=== PATIENT | female | born 1950 | race Caucasian/White ===

== ENCOUNTER 2023-04-16 15:56 | Outpatient (OUT) | payer MEDICARE, OTHER, SELFPAY ==
[2023-04-16 17:04] LABS: Bilirubin Urine NEGATIVE (NEGATIVE); Blood Urine TRACE-I (NEGATIVE); Clarity Urine CLEAR (CLEAR); Color Urine LT. YELLOW (YELLOW); Glucose Urine UA NEGATIVE (NEGATIVE); Ketones Urine NEGATIVE (NEGATIVE); Leukocyte Esterase Urine MODERATE (NEGATIVE); Nitrite Urine NEGATIVE (NEGATIVE); Protein Urine NEGATIVE (NEG/TRACE); Urobilinogen Urine 0.2 EU/dL (0.2-1.0)
[2023-04-16 17:11] LABS: Bacteria Urine TRACE #/HPF (NONE SEEN); Mucus Urine NONE SEEN (NONE SEEN); RBC Urine 0-2 #/HPF (0-2); Squamous Epithelial Cell Urine NONE SEEN #/LPF (NONE/RARE); WBC Urine 20-50 #/HPF (NONE SEEN)
[2023-04-16 17:12] LABS: Cast Seen? NONE SEEN #/LPF (NONE SEEN); Crystals Seen? None Seen #/HPF (None Seen); Urine Culture Indicated ALREADY ORDERED
== END 2023-04-16 15:57 ==
LOC: LAB 15:59
PROVIDERS: PCP Family Medicine
DX: R39.15 Urgency of urination (principal)
CPT/HCPCS: 81001; 87086; 87150; 87186

== ENCOUNTER 2023-05-25 12:55 | Outpatient (OUT) | payer MEDICARE, OTHER, SELFPAY ==
--- NOTE | 2023-05-25 12:58 | XR_ITS ---
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 FINDINGS: SPINE ANALYSIS: Average bone mineral density is 0.922 g/cm2. T-score (standard deviation relative to young adult mean): -2.1 . -1.2% change since prior study. HIP ANALYSIS: Lowest bone mineral density is within the femoral trochanter, 0.694 g/cm2. T-score (standard deviation relative to young adult mean): -1.4 . +4.4% change since prior study. XR/XR DEXA axial skeleton IMPRESSION: World [employer] Classification: Osteopenia - Moderate Fracture Risk Electronically authenticated by: JUAN M ELAM Date: 05/25/2023 13:45
== END 2023-05-25 12:56 | disposition home or self-care (01) ==
LOC: RAD 12:55
PROVIDERS: PCP Family Medicine; Visit Provider Family Medicine
DX: M85.851 Other specified disorders of bone density and structure, right thigh (principal); M85.88 Other specified disorders of bone density and structure, other site; Z90.710 Acquired absence of both cervix and uterus; E55.9 Vitamin D deficiency, unspecified; E89.41 Symptomatic postprocedural ovarian failure
CPT/HCPCS: 77080

== ENCOUNTER 2023-07-30 12:55 | Outpatient (OUT) | payer MEDICARE, OTHER, SELFPAY ==
[2023-07-30 13:28] LABS: Bilirubin Urine NEGATIVE (NEGATIVE); Blood Urine TRACE-I (NEGATIVE); Glucose Urine UA NEGATIVE (NEGATIVE); Ketones Urine TRACE mg/dL (NEGATIVE); Leukocyte Esterase Urine MODERATE (NEGATIVE); Nitrite Urine NEGATIVE (NEGATIVE); Protein Urine 30 mg/dL (NEG/TRACE); Urobilinogen Urine 0.2 EU/dL (0.2-1.0); pH Urine 6.5 (5.0-9.0)
[2023-07-30 13:29] LABS: Clarity Urine SLIGHTLY CLOUDY (CLEAR); Color Urine DK YELLOW (YELLOW)
[2023-07-30 13:34] LABS: Bacteria Urine TRACE #/HPF (NONE SEEN); Cast Seen? NONE SEEN #/LPF (NONE SEEN); Crystals Seen? None Seen #/HPF (None Seen); Mucus Urine NONE SEEN (NONE SEEN); RBC Urine 0-2 #/HPF (0-2); Squamous Epithelial Cell Urine RARE #/LPF (NONE/RARE); Urine Culture Indicated ALREADY ORDERED; WBC Urine 50-75 #/HPF (NONE SEEN)
== END 2023-07-30 12:56 | disposition home or self-care (01) ==
LOC: LAB 13:02
PROVIDERS: PCP Family Medicine
DX: R30.0 Dysuria (principal)
CPT/HCPCS: 81001; 87086

== ENCOUNTER 2023-11-21 16:01 | Outpatient (OUT) | payer MEDICARE, OTHER, SELFPAY | END 2023-11-21 16:02 | disposition home or self-care (01) | LOC: LAB 16:05 | PROVIDERS: PCP Family Medicine | DX: R30.0 Dysuria (principal) | CPT/HCPCS: 87086; 87150; 87186 ==

== ENCOUNTER 2024-03-20 08:20 | Outpatient (OUT) | payer MEDICARE, OTHER, SELFPAY ==
--- OUTSIDE RECORDS SUMMARY | 2024-03-20 08:33 | XMS_ITS | CCD ---
Author Organization [facility] Care Team Providers Care Parking Lot Attendant Name Role Phone PIPER CARLOS Admitting Unavailable PIPER CARLOS Attending Unavailable MARIALUISA, DR WILVER Ga Consulting Unavailable HEMEYER, DR PAGE Primary Care Unavailable PIPER CARLOS Consulting Unavailable KARLA MERLOS Consulting Unavailable VICENTEYER, DR PAGE Admitting Unavailable HEMEYER, DR PAGE Attending Unavailable HEMEYER, DR PAGE Consulting Unavailable HEMEYER, DR PAGE Primary Care Unavailable ZIEBER, DR WILVER Ga Consulting Unavailable HEMEYER, DR PAGE Admitting Unavailable HEMEYER, DR PAGE Attending Unavailable HEMEYER, DR PAGE Consulting Unavailable HEMEYER, DR PAGE Primary Care Unavailable SUSAN MARTINEZ Admitting Unavailable SUSAN MARTINEZ Attending Unavailable SUSAN MARTINEZ Consulting Unavailable JUSTUS, DR PAGE Primary Care Unavailable FALMARLENY, STEVE Consulting Unavailable Greg Pelayo Attending Unavailable Greg Pelayo Admitting Unavailable Fredrick Jerome Primary Care Unavailable FREDRICK JEROME Attending Unavailable FREDRICK JEROME Attending Unavailable FREDRICK JEROME Attending Unavailable FREDRICK JEROME Referring Unavailable FREDRICK JEROME Attending Unavailable Allergies Allergy Classification Reported Allergen(s) Allergy Type Date of Onset Reaction(s) Facility (1 source) Sulfonamides (Antibiotic) Drug allergy (disorder) [facility] Repository Problems Active Problems Problem Classification Problem Date Documented Da te Episodic/Chronic Conditions associated with dizziness or vertigo (4 sources) Dizziness and giddiness; Translations: [DIZZINESS AND GIDDINESS] Onset: 08-27-2022 Episodic Menopausal disorders (1 source) Menopausal and female climacteric states; Translations: [MENOPAUSAL FE CLIMACTERIC STATES] Onset: 07-14-2022 Chronic Other aftercare (1 source) 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; Translations: [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] Onset: 08-29-2022 Episodic Other aftercare (1 source) Other assisted (current) drug therapy; Translations: [[facility] CURRENT DRUG THERAPY] Onset: 08-29-2022 Episodic Other bone disease and musculoskeletal deformities (1 source) Other specified disorders of bone density and structure, other site; Translations: [[facility] D/O BONE DEN STRUCT [facility] SITE] Onset: 07-14-2022 Episodic Other circulatory disease (1 source) Elevated blood-pressure reading, without diagnosis of hypertension; Translations: [ELEVATED BP READING W/O DX HTN] Onset: 08-29-2022 Episodic Other screening for suspected conditions (not mental disorders or infectious disease) (5 sources) Encounter for screening mammogram for malignant neoplasm of breast; Translations: [Encounter for screening for osteoporosis] Onset: 07-07-2022 Episodic Unclassified (3 sources) CONTACT W/AND (SUSP) EXPOS COVID-19; Translations: [CONTACT W/AND (SUSP) EXPOS COVID-19] Onset: 11-02-2021 Unclassified (1 source) COUGH, UNSPECIFIED; Translations: [COUGH, UNSPECIFIED] Onset: 11-02-2021 Unclassified (1 source) OTHER SPECIFIED COUGH; Translations: [OTHER SPECIFIED COUGH] Onset: 11-02-2021 Unclassified (1 source) Encounter for screening for malignant neoplasm of colon; Translations: [Encounter for screening for malignant neoplasm of colon] Onset: 10-24-2023 Past or Other Problems Problem Classification Problem Date Documented Da te Episodic/Chronic E Codes: Fall (1 source) Fall on same level from slipping, tripping and stumbling with subsequent striking against other object, initial encounter; Translations: [FALL SAME LVL SLIP STRK [facility] OBJ INT] Onset: 04-17-2022 Episodic Superficial injury; contusion (5 sources) Contusion of unspecified part of head, initial encounter; Translations: [Abrasion, left knee, initial encounter] Onset: 04-11-2022 Episodic Unclassified (1 source) CONTACT W/AND (SUSP) EXPOS COVID-19; Translations: [CONTACT W/AND (SUSP) EXPOS COVID-19] Onset: 10-27-2021 Results Test Name Value Interpretation Reference Range Facil ity XR KNEE 3 VIEWS LEFTon 10-04 XR KNEE 3 VIEWS LEFT FINDINGS: Narrowing medial compartment, and patellofemoral compartment. Small anterior osteophytes. Inferior patella. No fracture, dislocation, bone lesion, effusion. IMPRESSION: Impression: Mild to moderate degenerative change, left knee. ELECTRONICALLY SIGNED BY: Kenroy Ramirez MD Normal Not Available XR KNEE 3 VIEWS RIGHTon XR KNEE 3 VIEWS RIGHT FINDINGS: No fracture, dislocation, bone lesion, effusion. Narrowing, medial and lateral compartments. Small osteophytes superior and inferior aspect anterior patella. IMPRESSION: Impression: Mild to moderate degenerative change, right knee. ELECTRONICALLY SIGNED BY: Kenroy Ramirez MD Normal Not Available CBC AUTO DIFFon 08-27-2022 BASO # 0.0 103/ul Normal 0.0-0.1 [facility] Comment on above: Performed By: #### C BC #### [facility] [address] [place] [address] Dr. Daniel Hester Basophils/100 WBC (Bld) 0.4 % Normal 0.2-2.0 [facility] Comment on above: Performed By: #### C BC #### [facility] [address] [place] [address] Dr. Daniel Hester EO # 0.2 103/ul Normal 0.0-0.7 [facility] Comment on above: Performed By: #### C BC #### [facility] [address] [place] [address] Dr. Daniel Hester Eosinophils/100 WBC (Bld) 2.7 % Normal 0.9-7.0 [facility] Comment on above: Performed By: #### C BC #### [facility] [address] [place] [address] Dr. Daniel Hester Erythrocyte distribution width (RBC) [Ratio] 13.3 % Normal 11.0-15.0 [facility] Comment on above: Performed By: #### C BC #### [facility] [address] [place] [address] Dr. Daniel Hester Hematocrit (Bld) [Volume fraction] 38.8 % Normal 36.0-48.0 [facility] Comment on above: Performed By: #### C BC #### [facility] [address] [place] [address] Dr. Daniel Hester Hemoglobin (Bld) [Mass/Vol] 13.0 g/dL Normal 12.0-16.0 [facility] Comment on above: Performed By: #### C BC #### [facility] [address] [place] [address] Dr. Daniel Hester IG # 0.01 10e3/ul Normal 0.00-0.03 [facility] Comment on above: Performed By: #### C BC #### [facility] [address] [place] [address] Dr. Daniel Hester IG % 0.1 % Normal 0.0-0.5 [facility] Comment on above: Performed By: #### C BC #### [facility] [address] [place] [address] Dr. Daniel Hester LYMPH # 2.5 103/ul Normal 1.2-3.8 [facility] Comment on above: Performed By: #### C BC #### [facility] [address] [place] [address] Dr. Daniel Hester Lymphocytes/100 WBC (Bld) 36.6 % Normal 20.5-60.0 [facility] Comment on above: Performed By: #### C BC #### [facility] [address] [place] [address] Dr. Daniel Hester MANUAL DIFF REQ NO Normal [facility] Comment on above: Performed By: #### C BC #### [facility] [address] [place] [address] Dr. Daniel Hester MCH (RBC) [Entitic mass] 31.7 pg Normal 26.7-34.0 [facility] Comment on above: Performed By: #### C BC #### [facility] [address] [place] [address] Dr. Daniel Hester MCHC (RBC) [Mass/Vol] 33.5 g/dL Normal 29.9-35.2 [facility] Comment on above: Performed By: #### C BC #### [facility] [address] [place] [address] Dr. Daniel Hester MCV (RBC) [Entitic vol] 94.6 fL Normal 81.0-99.0 [facility] Comment on above: Performed By: #### C BC #### [facility] [address] [place] [address] Dr. Daniel Hester MONO # 0.4 103/ul Normal 0.3-0.8 [facility] Comment on above: Performed By: #### C BC #### [facility] [address] [place] [address] Dr. Daniel Hester Monocytes/100 WBC (Bld) 6.4 % Normal 1.7-12.0 [facility] Comment on above: Performed By: #### C BC #### [facility] [address] [place] [address] Dr. Daniel Hester NEUT # 3.6 103/ul Normal 1.4-6.5 [facility] Comment on above: Performed By: #### C BC #### [facility] [address] [place] [address] Dr. Daniel Hester Neutrophils/100 WBC (Bld) 53.8 % Normal 43.0-75.0 [facility] Comment on above: Performed By: #### C BC #### [facility] [address] [place] [address] Dr. Daniel Hester Platelet mean volume (Bld) [Entitic vol] 10.9 fL Normal 9.5-13.5 [facility] Comment on above: Performed By: #### C BC #### [facility] [address] [place] [address] Dr. Daniel Hester PLT 217 103/ul Normal 150-450 [facility] Comment on above: Performed By: #### C BC #### [facility] [address] [place] [address] Dr. Daniel Hester RBC 4.10 106/ul Critically low 4.20-5.40 [facility] Comment on above: Performed By: #### C BC #### [facility] [address] [place] [address] Dr. Daniel Hester WBC 6.7 103/ul Normal 4.0-11.0 [facility] Comment on above: Performed By: #### C BC #### [facility] [address] HEAD WO CONon 08-27-2022 CT HEAD WO CON EXAM: CT HEAD WO CON CLINICAL INDICATION: Dizziness COMPARISON: CT head 04/11/2022 TECHNIQUE: Axial CT images of the brain were obtained without contrast. Coronal and sagittal reformats were obtained. Dose reduction techniques were achieved by using automated exposure control and/or adjustment of mA and/or kV according to patient size and/or use of iterative reconstruction technique. FINDINGS: No intracranial hemorrhage, extra-axial fluid collection, hydrocephalus, midline shift, or acute large vessel territory infarction. No other mass effect. Mild patchy subcortical hypoattenuation is likely on the basis of chronic microvascular angiopathic changes. Minimal symmetric global volume loss without lobar predominance. Slight commensurate prominence of the ventricular system. Basal cisterns are patent. No calvarial fracture. Normal soft tissues. Paranasal sinuses and mastoid air cells are well-aerated. IMPRESSION: No acute intracranial process. No substantial change since 04/11/2022. Electronically authenticated by: STEVE QUINTERO Date: 2022-08-27 14:38 Normal [facility] PROF CHEM 8 (BAS METB)on Anion gap [Moles/Vol] 8.7 mmol/L Normal [facility] Comment on above: Performed By: #### B HARESH, HSTROPN #### [facility] [address] [address] [address] Daniel Hester Calcium [Mass/Vol] 9.7 mg/dL Normal 8.5-10.[address] [facility] Comment on above: Performed By: #### B HARESH, HSTROPN #### [facility] [address] [address] [address] Daniel Hester Chloride [Moles/Vol] 104 mmol/L Normal 98-107 [facility] Comment on above: Performed By: #### B HARESH, HSTROPN #### [facility] [address] [address] [address] Daniel Hester CO2 [Moles/Vol] 29.6 mmol/L Normal 21.0-32.[address] [facility] Comment on above: Performed By: #### B HARESH, HSTROPN #### [facility] [address] [address] [address] Daniel Hester Creatinine [Mass/Vol] 1.00 mg/dL Normal 0.55-1.02 [facility] Comment on above: Performed By: #### B HARESH, HSTROPN #### [facility] [address] [address] [address] Daniel Hester EGFR-AF LUXEMBOURGER >60 Normal >=60 [facility] Comment on above: Performed By: #### B HARESH, HSTROPN #### [facility] [address] [address] [address] Daniel Hester EGFR-NON AF LUXEMBOURGER 55 mL/min/1.73m2 Critically low >=60 [facility] Comment on above: Performed By: #### B HARESH, HSTROPN #### [facility] [address] [address] [address] Daniel Hester Glucose [Mass/Vol] 98 mg/dL Normal 74-[address] [facility] Comment on above: Performed By: #### B HARESH, HSTROPN #### [facility] [address] [place] [address] Dr. Daniel Hester Potassium [Moles/Vol] 3.3 mmol/L Critically low 3.5-5.1 [facility] Comment on above: Performed By: #### B HARESH, HSTROPN #### [facility] [address] [address] [address] Daniel Hester Sodium [Moles/Vol] 139 mmol/L Normal 136-145 [facility] Comment on above: Performed By: #### B HARESH, HSTROPN #### [facility] [address] [place] [address] Dr. Daniel Hester Urea nitrogen [Mass/Vol] 15.0 mg/dL Normal 7.0-18.0 [facility] Comment on above: Performed By: #### B HARESH, HSTROPN #### [facility] [address] [place] [address] Dr. Daniel Hester Urea nitrogen/Creatinine [Mass ratio] 15.0 mg/mg Normal [facility] Comment on above: Performed By: #### B HARESH, HSTROPN #### [facility] [address] [address] [address] Daniel Hester TROPONIN, HIGH SENSITIVITYon 08-27-2022 HSTROP 21.7 pg/mL Normal 4.0-51.3 [facility] Comment on above: Result Comment: CUT- OFF POINTS HAVE BEEN ESTABLISHED BASED ON THE FOURTH UNIVERSAL DEFINITIONS OF MYOCARDIAL INFARCTION. THE UPPER REFERENCE LIMIT (URL) OF TROPONIN, DEFINED THE 99TH PERCENTILE OF cTnI DISTRIBUTION IN A REFERENCE POPULATION, HAS BEEN CONFIRMED THE DECISION THRESHOLD FOR ME DIAGNOSIS. Performed By: #### B HARESH, HSTROPN #### [facility] [address] [address] [address] Daniel Hester MG MAMM SCREEN 3D RADHA CADon 07-07-2022 MG MAMM SCREEN 3D RADHA CAD Patient: YANELY DOUGLASS Exam Date: 07/07/2022 : 1950 Gender:F Ordering : DR FREDRICK JEROME . Admission #: [id number] Family : Order #: [id number] CLICK HERE TO VIEW EXAM RADIOLOGY REPORT PROCEDURE: MAMMOGRAM SCREENING 3D BILATERAL CAD COMPARISON: MG MAMM SCREEN RADHA W CAD, 05/31/2020. MG MAMM SCREEN RADHA W CAD, 05/28/2019. INDICATIONS: Screening mammography Calculator Name NCI Breast Cancer Risk Assessment Tool 5 Year Breast Cancer Risk 1.60% Lifetime Breast Cancer Risk 4.30% Personal Breast Cancer No Personal Ovarian Cancer No Treatments None Family Cancers None LOCATION: [facility] BREAST COMPOSITION: Scattered areas fibroglandular density. FINDINGS: DIAGNOSTIC CATEGORY 1--NEGATIVE. RIGHT BREAST: No significant suspicious finding. No significant change has occurred. LEFT BREAST: No significant suspicious finding. No significant change has occurred. RECOMMENDATIONS: ROUTINE MAMMOGRAM AND CLINICAL EVALUATION IN 12 MONTHS. PLEASE NOTE: A NORMAL MAMMOGRAM DOES NOT EXCLUDE THE POSSIBILITY OF BREAST CANCER. A CLINICALLY SUSPICIOUS PALPABLE LUMP SHOULD BE BIOPSIED. Dictated by: Wilver Dejesus M.D. on 07/07/2022 at 12:30 Approved by: Wilver Dejesus M.D. on 07/07/2022 at 12:35 Normal [facility] XR DEXA BONE DENSITYon 07-07 XR DEXA BONE DENSITY EXAMINATION: XR DEXA BONE DENSITY, 07/07/2022 11:02 AM EDT HISTORY: Bone density finding COMPARISON: DEXA bone densitometry 05/31/2020 TECHNIQUE: Dual-energy X-ray absorptiometry (DEXA) bone density study performed for the axial skeleton. FINDINGS: SPINE ANALYSIS: Average bone mineral density is 0.934 g/cm2. T-score (standard deviation relative to young adult mean): -2.1 . -13.4% change since prior study. HIP ANALYSIS: Lowest bone mineral density is within the femoral trochanter, 0.665 g/cm2. T-score (standard deviation relative to young adult mean): -1.6 . -4.6% change is prior study. IMPRESSION: World [employer] Classification: Osteopenia - Moderate Fracture Risk Electronically authenticated by: WILVER DEJESUS Date: 2022-07-07 11:51 Normal [facility] CT HEAD WO CONon 04-11-2022 CT HEAD WO CON EXAMINATION: CT HEAD WO CON HISTORY: Pain COMPARISON: No relevant comparison available. TECHNIQUE: Axial CT images were obtained without IV contrast. Dose reduction techniques were achieved by using automated exposure control and/or adjustment of mA and/or kV according to patient size and/or use of iterative reconstruction technique. FINDINGS: BRAIN: No edema, hemorrhage, mass, acute infarction, or inappropriate atrophy. CSF SPACES: No hydrocephalus, subarachnoid hemorrhage, or mass. Appropriate for age. SKULL: No fracture, mass, or other significant visible lesion. SINUSES: No significant mucosal thickening or fluid on the limited views. ORBITS: No appreciable abnormality on the limited views. OTHER: Negative IMPRESSION: 1. No intracranial hemorrhage, mass, or suspicious findings. 2. Mild age consistent atrophy and chronic small vessel ischemic changes. Electronically authenticated by: WILVER DEJESUS Date: 2022-04-11 11:00 Normal [facility] XR KNEE LT 4V or >on 022 XR KNEE LT 4V or > EXAM: XR KNEE LT 4V or > HISTORY: Pain acute left knee pain after fall. COMPARISON: None TECHNIQUE: Tangential, frontal, lateral and frontal oblique views left knee FINDINGS: No dislocation or joint subluxations. No acute fracture. No left knee effusion. Mild osteoarthrosis. Subchondral cyst formation lateral tibial plateau. Enthesopathy patella. Some dystrophic/heterotopi c ossification overlying the lateral femoral condyle likely from old soft tissue injury IMPRESSION: No acute fracture left knee. Mild osteoarthrosis. Electronically authenticated by: KARLA MERLOS Date: 2022-04-11 09:45 Normal [facility] Covid-19 PCR ([facility])on 09-30 SARS-CoV-2 (COVID-19) RNA RAMIRO+probe Ql (Unsp spec) Not detected Normal NOT DETECTED [facility] Comment on above: Result Comment: This test is not yet approved or cleared by the [place] FDA. When there are no FDA-approved or cleared tests available, and other criteria are met, FDA can make tests available under an emergency access mechanism called an Emergency Use Authorization (EUA). The EUA for this test is supported by the Cardinal of Health and Human Service's (HHS's) declaration that circumstances exist to justify the emergency use of in vitro diagnostics for the detection and/or diagnosis of the virus that causes COVID-19. This EUA will remain in effect (meaning this test can be used) for the duration of the COVID-19 declaration justifying emergency of IVDs, unless it is terminated or revoked by FDA (after which the test may no longer be used). When diagnostic testing is negative, the possibility of a false negative should be considered in the context of a patient's recent exposures and the presence of clinical signs and symptoms consistent with SARS-CoV-2. Performed By: #### C [facility] #### [facility] [address] [place] [address] Dr. Daniel Hester Encounters Encounter Date Encounter Type Care Provider Facility Start: 01-31-2024 End: 01-31-2024 ambulatory FREDRICK JEROME Not Available Start: 01-23-2024 End: 01-23-2024 ambulatory FREDRICK JEROME Not Available Start: 10-24-2023 End: 10-24-2023 ambulatory Greg Pelayo Facility:[facility] Start: 10-11-2023 End: 10-11-2023 ambulatory FREDRICK JEROME Not Available Start: 10-04-2023 End: 10-05-2023 ambulatory FREDRICK JEROME Not Available Start: 10-02-2023 End: 10-02-2023 ambulatory FREDRICK JEROME Not Available Start: 08-27-2022 End: 08-27-2022 ambulatory SUSAN MARTINEZ Facility:[facility] Start: 07-07-2022 End: 07-08-[address] FREDRICK JEROME Facility:[facility] Start: 04-11-2022 End: 04-11-2022 ambulatory PIPER CARLOS Facility:[facility] Start: 10-27-2021 End: 10-27-[address] FREDRICK JEROME Facility:[facility] Payers Date Payer Category Payer Self-pay 1959 Medicare [id number] 1959 Unknown [id number] 1950 Unknown [id number] 2.16.84 [id number] 1950 Unknown [id number] 2.16.84 [id number] 1950 Unknown [id number] 2.16.84 [id number] 1950 Unknown [id number] 2.16.84 [id number] 1950 Unknown [id number] 2.16.84 [id number] 1950 Unknown [id number] 2.16.84 [id number] 1950 Unknown [id number] 2.16.840 .1.112894.3.579.2.1259 1950 Unknown [id number] 2.16.840 .[id number] 1950 Unknown [id number] 2.16.840 .[id number] 1950 Unknown [id number] 2.16.840 .[id number] Unknown [id number] 2.16.8 [id number] Summary Purpose Family History No Family History Records FoundNo Family History Records FoundNo Family History Records Found Advance Directives No Advanced Directives Records FoundNo Advanced Directives Records FoundNo Advanced Directives Records Found Additional Source Comments INFORMATION SOURCE (unrecogn ized section and content) DATE CREATED AUTHOR 08/29/2022 [facility] DATE CREATED AUTHOR AUTHOR'S ORGANIZ ATION 11/17/2023 [facility] DATE CREATED AUTHOR AUTHOR'S ORGANIZ ATION 02/01/2024 [facility] EPIC FOR RECORDS PERTAINING TO PATIENTS WHO ARE OR HAVE BEEN ENROLLED IN A CHEMICAL DEPENDENCY/SUBSTANCEABUSE PROGRAM, SOME INFORMATION MAY BE OMITTED. This clinical summary was aggregated from multiple sources. Caution should be exercised in using it in the provision of clinical care. This summary normalizes information from multiple sources, and as a consequence, information in this document may materially change the coding, format and clinical context of patient data. In addition, data may be omitted in some cases. CLINICAL DECISIONS SHOULD BE BASED ON THE PRIMARY CLINICAL RECORDS. [facility]. provides no warranty or guarantee of the accuracy or completeness of information in this document.
[2024-03-20 09:59] LABS: Alanine Aminotransferase 21 U/L (14-59); Albumin Level 3.5 g/dL (3.4-5.0); Alkaline Phosphatase 44 U/L (46-116); Aspartate Amino Transferase 21 U/L (15-37); BUN Creatinine Ratio 14.3; Bilirubin Total 0.4 mg/dL (0.2-1.0); Calcium 9.5 mg/dL (8.5-10.1); Carbon Dioxide 29.8 mmol/L (21.0-32.0); Chloride 106 mmol/L (98-107); Chol HDL Ratio 3.1; Cholesterol 239 mg/dL (<=200); Estimated GFR (African America 58 (>=60); Estimated GFR (Non-African Ame 48 (>=60); Globulin 3.4 g/dL; Glucose 88 mg/dL (74-106); HDL Cholesterol 76 mg/dL (40-60); Potassium 3.8 mmol/L (3.5-5.1); Sodium 143 mmol/L (136-145); Total Protein 6.9 g/dL (6.4-8.2); Triglycerides 98 mg/dL (<=150); VLDL CHOLESTEROL 19.6 mg/dL
== END 2024-03-20 08:21 | disposition home or self-care (01) ==
PROVIDERS: PCP Family Medicine; Visit Provider Family Medicine
DX: I12.9 Hypertensive chronic kidney disease with stage 1 through stage 4 chronic kidney disease, or unspecified chronic kidney disease (principal); N18.2 Chronic kidney disease, stage 2 (mild); E78.2 Mixed hyperlipidemia
CPT/HCPCS: 36415; 80053; 80061

== ENCOUNTER 2024-06-10 09:24 | Outpatient (OUT) | payer MEDICARE, OTHER, SELFPAY ==
--- NOTE | 2024-06-10 09:26 | MM_ITS ---
Patient Name: YANELY DOUGLASS MR#: [id number] : 1950 Exam Date: 06/10/2024 Ordering Doctor: DR CAMILO JEROME . RADIOLOGY REPORT PROCEDURE: MM TOMOSYNTHESIS SCREENING BI COMPARISON: MG MAMM SCREEN RADHA W CAD, 05/31/2020. MG MAMM SCREEN 3D RADHA CAD, 07/07/2022. INDICATIONS: Screening Calculator Name NCI Breast Cancer Risk Assessment Tool 5 Year Breast Cancer Risk 1.60% Lifetime Breast Cancer Risk 3.90% Personal Breast Cancer No Personal Ovarian Cancer No Treatments None Family Cancers None LOCATION: [facility] BREAST COMPOSITION: There are scattered areas of fibroglandular density. FINDINGS: DIAGNOSTIC CATEGORY 2--BENIGN FINDING. NO CHANGE FROM COMPARISON. Scattered benign-appearing calcifications are present. RIGHT BREAST: No significant suspicious finding. LEFT BREAST: No significant suspicious finding. RECOMMENDATIONS: ROUTINE MAMMOGRAM AND CLINICAL EVALUATION IN 12 MONTHS. PLEASE NOTE: A NORMAL MAMMOGRAM DOES NOT EXCLUDE THE POSSIBILITY OF BREAST CANCER. A CLINICALLY SUSPICIOUS PALPABLE LUMP SHOULD BE BIOPSIED. Dictated by: David Castro MD on 06/10/2024 at 11:44 Approved by: David Castro MD on 06/10/2024 at 11:45
--- NOTE | 2024-06-10 09:27 | XR_ITS ---
[address] [address] Patient Name: YANELY DOUGLASS MRN: [id number] date: 1950 Sex: F Assigned Patient Location: [facility] Current Patient Location: Accession/Order Number: [id number] Exam Date: 06/10/2024 09:48 Report Date: 06/11/2024 05:28 At the request of: CAMILO JEROME Procedure: XR DEXA axial skeleton EXAMINATION: XR DEXA axial skeleton HISTORY: History Of Hysterectomy Z90.710, Osteopenia COMPARISON: DEXA bone densitometry 05/25/2023 TECHNIQUE: Dual-energy X-ray absorptiometry (DXA) was performed. FINDINGS: SPINE ANALYSIS: Average bone mineral density is 0.964 g/cm2. T-score (standard deviation relative to young adult mean): -1.8 . +4.5% change is prior study. HIP ANALYSIS: Lowest bone mineral density is within the left femoral neck, 0.9 x 6 g/cm2. T-score (standard deviation relative to young adult mean): -0.6 . +2.6% change since prior study. XR/XR DEXA axial skeleton IMPRESSION: World Health Organization Classification: Osteopenia - Moderate Fracture Risk FRAX: Cannot calculate. Pharmacologic treatment recommendations * No uniform recommendation applies to all patients. Management plans must be individualized. * Consider initiating pharmacologic treatment in postmenopausal women and men >= 50 years of age who have the following: Primary fracture prevention: * T-score <= - 2.5 at the femoral neck, total hip, lumbar spine, 33% radius (some uncertainty with existing data) by DXA. * Low bone mass (osteopenia: T-score between - 1.0 and - 2.5) at the femoral neck or total hip by DXA with a 10-year hip fracture risk >= 3% or a 10-year major osteoporosis-related fracture risk >= 20% (i.e., clinical vertebral, hip, forearm, or proximal humerus) based on the [place]-adapted FRAXregistered model. Secondary fracture prevention: * Fracture of the hip or vertebra regardless of BMD [4, 5]. * Fracture of proximal humerus, pelvis, or distal forearm in persons with low bone mass (osteopenia: T-score between - 1.0 and - 2.5). The decision to treat should be individualized in persons with a fracture of the proximal humerus, pelvis, or distal forearm who do not have osteopenia or low BMD [12, 13]. Rach MS, Jennifer SL, Yuni KL, Franklin EM, Estuardo KG, AJ, Karo ES. The clinician's guide to prevention and treatment of osteoporosis. Osteoporos Int. 2021;33(10):5153-9444. doi: 10.1007/m29004-789-80056-q. Epub 2021Feb 23. Erratum in: Osteoporos Int. 2021May 25;: PMID: [id number]; PMCID: [id number]. Electronically authenticated by: JUAN M ELAM Date: 06/11/2024 05:28
--- OUTSIDE RECORDS SUMMARY | 2024-06-10 09:37 | XMS_ITS | CCD ---
Author Organization [facility] Care Team Providers Care Supervisor Plastics Name Role Phone PIPER CARLOS Admitting Unavailable PIPER CARLOS Attending Unavailable MARIALUISA, DR WILVER Ga Consulting Unavailable HEMEYER, DR PAGE Primary Care Unavailable PIPER CARLOS Consulting Unavailable KARLA MERLOS Consulting Unavailable HEMEYER, DR PAGE Admitting Unavailable HEMEYER, DR PAGE Attending Unavailable HEMEYER, DR PAGE Consulting Unavailable HEMEYER, DR PAGE Primary Care Unavailable ZIEBER, DR WILVER Ga Consulting Unavailable HEMEYER, DR PAGE Admitting Unavailable HEMEYER, DR PAGE Attending Unavailable HEMEYER, DR PAGE Consulting Unavailable HEMEYER, DR PAGE Primary Care Unavailable SUSAN MARTINEZ Admitting Unavailable SUSAN MARTINEZ Attending Unavailable SUSAN MARTINEZ Consulting Unavailable HEMEYER, DR PAGE Primary Care Unavailable STEVE QUINTERO Consulting Unavailable Greg Pelayo Attending Unavailable Greg Pelayo Admitting Unavailable Fredrick Jerome Primary Care Unavailable FREDRICK JEROME Attending Unavailable FREDRICK JEROME Attending Unavailable FREDRICK JEROME Attending Unavailable FREDRICK JEROME Attending Unavailable HEMEYERFREDRICK Attending Unavailable HEMEYERFREDRICK Referring Unavailable FREDRICK JEROME Attending Unavailable Allergies Allergy Classification Reported Allergen(s) Allergy Type Date of Onset Reaction(s) Facility (1 source) Sulfonamides (Antibiotic) Drug allergy (disorder) [facility] Repository Problems Active Problems Problem Classification Problem Date Documented Da te Episodic/Chronic Conditions associated with dizziness or vertigo (4 sources) Dizziness and giddiness; Translations: [DIZZINESS AND GIDDINESS] Onset: 08-27-2022 Episodic Menopausal disorders (1 source) Menopausal and female climacteric states; Translations: [MENOPAUSAL FE CLIMACTERIC STATES] Onset: 07-14-2022 Chronic Other aftercare (1 source) 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; Translations: [ALF CURRENT USE OF ASPIRIN] Onset: 08-29-2022 Episodic Other aftercare (1 source) Other buttermaker 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 churn (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) drug therapy; Translations: [[facility] EXECUTIVE CURRENT DRUG THERAPY] Onset: 08-29-2022 Episodic Other bone disease and musculoskeletal deformities (1 source) Other specified disorders of bone density and structure, other site; Translations: [OT D/O BONE DEN STRUCT OT SITE] Onset: 07-14-2022 Episodic Other circulatory disease [...] encounter; Translations: [FALL SAME LVL SLIP STRK OT OBJ INT] Onset: 04-17-2022 Episodic Superficial injury; [...] 08-27-2022 BASO # 0.0 103/ul Normal 0.0-0.1 [facility] Comment on above: Performed By: #### C BC #### [facility] [address] [address] [address] Daniel Hester Basophils/100 WBC (Bld) 0.4 % Normal 0.2-2.0 [facility] Comment on above: Performed By: #### C BC #### [facility] [address] [address] [address] Daniel Hester EO # 0.2 103/ul Normal 0.0-0.7 [facility] Comment on above: Performed By: #### C BC #### [facility] [address] [address] [address] Daniel Hester Eosinophils/100 WBC (Bld) 2.7 % Normal 0.9-7.0 [facility] Comment on above: Performed By: #### C BC #### [facility] [address] [place] [address] Dr. Daniel Hester Erythrocyte distribution width (RBC) [Ratio] 13.3 % Normal 11.0-15.0 [facility] Comment on above: Performed By: #### C BC #### [facility] [address] [place] [address] Dr. Daniel Hester Hematocrit (Bld) [Volume fraction] 38.8 % Normal 36.0-48.0 [facility] Comment on above: Performed By: #### C BC #### [facility] [address] [place] [address] Dr. Daniel Hester Hemoglobin (Bld) [Mass/Vol] 13.0 g/dL Normal 12.0-16.0 [facility] Comment on above: Performed By: #### C BC #### [facility] [address] [place] [address] Dr. Daniel Hester IG # 0.01 10e3/ul Normal 0.00-0.03 [facility] Comment on above: Performed By: #### C BC #### [facility] [address] [place] [address] Dr. Daniel Hester IG % 0.1 % Normal 0.0-0.5 [facility] Comment on above: Performed By: #### C BC #### [facility] [address] [place] [address] Dr. Daniel Hester LYMPH # 2.5 103/ul Normal 1.2-3.8 [facility] Comment on above: Performed By: #### C BC #### [facility] [address] [place] [address] Dr. Daniel Hester Lymphocytes/100 WBC (Bld) 36.6 % Normal 20.5-60.0 [facility] Comment on above: Performed By: #### C BC #### [facility] [address] [place] [address] Dr. Daniel Hester MANUAL DIFF REQ NO Normal [facility] Comment on above: Performed By: #### C BC #### [facility] [address] [place] [address] Dr. Daniel Hester MCH (RBC) [Entitic mass] 31.7 pg Normal 26.7-34.0 [facility] Comment on above: Performed By: #### C BC #### [facility] [address] [place] [address] Dr. Daniel Hester MCHC (RBC) [Mass/Vol] 33.5 g/dL Normal 29.9-35.2 [facility] Comment on above: Performed By: #### C BC #### [facility] [address] [place] [address] Dr. Daniel Hester MCV (RBC) [Entitic vol] 94.6 fL Normal 81.0-99.0 [facility] Comment on above: Performed By: #### C BC #### [facility] [address] [place] [address] Dr. Daniel Hester MONO # 0.4 103/ul Normal 0.3-0.8 [facility] Comment on above: Performed By: #### C BC #### [facility] [address] [address] [address] Daniel Hester Monocytes/100 WBC (Bld) 6.4 % Normal 1.7-12.0 [facility] Comment on above: Performed By: #### C BC #### [facility] [address] [place] [address] Dr. Daniel Hester NEUT # 3.6 103/ul Normal 1.4-6.5 [facility] Comment on above: Performed By: #### C BC #### [facility] [address] [place] [address] Dr. Daniel Hester Neutrophils/100 WBC (Bld) 53.8 % Normal 43.0-75.0 [facility] Comment on above: Performed By: #### C BC #### [facility] [address] [place] [address] Dr. Daniel Hester Platelet mean volume (Bld) [Entitic vol] 10.9 fL Normal 9.5-13.5 [facility] Comment on above: Performed By: #### C BC #### [facility] [address] [place] [address] Dr. Daniel Hester PLT 217 103/ul Normal 150-450 [facility] Comment on above: Performed By: #### C BC #### [facility] [address] [place] [address] Dr. Daniel Hester RBC 4.10 106/ul Critically low 4.20-5.40 [facility] Comment on above: Performed By: #### C BC #### [facility] [address] [place] [address] Dr. Daniel Hester WBC 6.7 103/ul Normal 4.0-11.0 [facility] Comment on above: Performed By: #### C BC #### [facility] [address] [address] HEAD WO CONon [...] STEVE QUINTERO Date: 2022-08-27 14:38 Normal [facility] PROF CHEM 8 (BAS METB)on Anion gap [Moles/Vol] 8.7 mmol/L Normal [facility] Comment on above: Performed By: #### B HARESH, HSTROPN #### [facility] [address] [place] [address] Dr. Daniel Hester Calcium [Mass/Vol] 9.7 mg/dL Normal 8.5-10.1 [facility] Comment on above: Performed By: #### B HARESH, HSTROPN #### [facility] [address] [address] [address] Daniel Hester Chloride [Moles/Vol] 104 mmol/L Normal 98-107 [facility] Comment on above: Performed By: #### B HARESH, HSTROPN #### [facility] [address] [address] [address] Daniel Hester CO2 [Moles/Vol] 29.6 mmol/L Normal 21.0-32.0 [facility] Comment on above: Performed By: #### B HARESH, HSTROPN #### [facility] [address] [address] [address] Daniel Hester Creatinine [Mass/Vol] 1.00 mg/dL Normal 0.55-1.02 [facility] Comment on above: Performed By: #### B HARESH, HSTROPN #### [facility] [address] [address] [address] Daniel Hester EGFR-AF BAHRAINI >60 Normal >=60 [facility] Comment on above: Performed By: #### B HARESH, HSTROPN #### [facility] [address] [address] [address] Daniel Hester EGFR-NON AF BAHRAINI 55 mL/min/1.73m2 Critically low >=60 [facility] Comment on above: Performed By: #### B HARESH HSTROPN #### [facility] [address] [place] [address] Dr. Daniel Hester Glucose [Mass/Vol] 98 mg/dL Normal 74-106 [facility] Comment on above: Performed By: #### B HARESH, HSTROPN #### [facility] [address] [place] [address] Dr. Daniel Hester Potassium [Moles/Vol] 3.3 mmol/L Critically low 3.5-5.1 [facility] Comment on above: Performed By: #### B HARESH, HSTROPN #### [facility] [address] [place] [address] Dr. Daniel Hester Sodium [Moles/Vol] 139 mmol/L Normal 136-145 [facility] Comment on above: Performed By: #### B HARESH, HSTROPN #### [facility] [address] [place] [address] Dr. Daniel Hester Urea nitrogen [Mass/Vol] 15.0 mg/dL Normal 7.0-18.0 [facility] Comment on above: Performed By: #### B HARESH, HSTROPN #### [facility] [address] [address] [address] Daniel Hester Urea nitrogen/Creatinine [Mass ratio] 15.0 mg/mg Normal [facility] Comment on above: Performed By: #### B HARESH, HSTROPN #### [facility] [address] [address] [address] Daniel Hester TROPONIN, HIGH SENSITIVITYon 08-27-2022 HSTROP 21.7 pg/mL Normal 4.0-51.3 [facility] Comment on above: Result Comment: CUT- OFF POINTS HAVE BEEN ESTABLISHED BASED ON THE FOURTH UNIVERSAL DEFINITIONS OF MYOCARDIAL INFARCTION. THE UPPER REFERENCE LIMIT (URL) OF TROPONIN, DEFINED THE 99TH PERCENTILE OF cTnI DISTRIBUTION IN A REFERENCE POPULATION, HAS BEEN CONFIRMED THE DECISION THRESHOLD FOR [place] DIAGNOSIS. Performed By: #### B HARESH, HSTROPN #### [facility] [address] [address] [address] Daniel Hester MG MAMM SCREEN 3D RADHA CADon 07-07-2022 MG MAMM SCREEN 3D RADHA CAD Patient: YANELY DOUGLASS Exam Date: 07/07/2022 : 1950 Gender:F Ordering : DR FREDRICK JEROME . Admission #: [id number] Family : Order #: [id number] CLICK HERE TO VIEW EXAM RADIOLOGY REPORT [...] Treatments None Family Cancers None LOCATION: [facility] BREAST COMPOSITION: Scattered areas fibroglandular density. FINDINGS: [...] Dejesus M.D. on 07/07/2022 at 12:35 Normal [facility] XR DEXA BONE DENSITYon 07-07 XR DEXA [...] by: WILVER DEJESUS Date: 2022-07-07 11:[address] [facility] [address] HEAD WO CONon 04-11-2022 CT HEAD [...] by: WILVER DEJESUS Date: 2022-04-11 11:00 Normal [facility] XR KNEE LT 4V or >on 022 [...] KARLA MERLOS Date: 2022-04-11 09:45 Normal [facility] Covid-19 PCR ([facility])on 09-30 SARS-CoV-2 (COVID-19) RNA RAMIRO+probe Ql (Unsp spec) Not detected Normal NOT DETECTED [facility] Comment on above: Result Comment: This test is not yet approved or cleared by the [place] FDA. When there are no FDA-approved or cleared tests available, and other criteria are met, FDA can make tests available under an emergency access mechanism called an Emergency Use Authorization (EUA). The EUA for this test is supported by the [place] of Health and Human Service's (HHS's) declaration [...] consistent with SARS-CoV-2. Performed By: #### [facility] #### [facility] [address] [place] [address] Dr. Daniel Hester Encounters Encounter Date Encounter Type Care Provider Facility Start: 05-08-2024 End: 05-08-2024 ambulatory FREDRICK JEROME Not Available Start: 03-25-2024 End: 03-25-2024 ambulatory FREDRICK JEROME Not Available Start: 01-31-2024 End: 01-31-2024 ambulatory FREDRICK JEROME Not Available Start: 01-23-2024 End: 01-23-2024 ambulatory FREDRICK JEROME Not Available Start: 10-24-2023 End: 10-24-2023 ambulatory Greg Pelayo Facility:[facility] Start: 10-11-2023 End: 10-11-2023 ambulatory FREDRICK JEROME Not Available Start: 10-04-2023 End: 10-04-2023 ambulatory FREDRICK JEROME Not Available Start: 10-02-2023 End: 10-02-2023 ambulatory FREDRICK JEROME Not Available Start: 08-27-2022 End: 08-27-2022 ambulatory SUSAN MARTINEZ Facility:[facility] Start: 07-07-2022 End: 07-08-[address] FREDRICK JEROME Facility:[facility] Start: 04-11-2022 End: 04-11-2022 ambulatory PIPER BREANNA Facility:[facility] Start: 10-27-2021 End: 10-27-[address] FREDRICK JEROME Facility:[facility] Payers Date Payer Category Payer Self-pay 1959 Medicare [id number] 1959 Unknown [id number] 1950 Unknown [id number] 2.16.84 [id number] 1950 Unknown [id number] 2.16.84 0.1.893188.3.579.2.593 1950 Unknown [id number] 2.16.84 0.1.189579.3.579.2.593 1950 Unknown [id number] 2.16.84 0.1.162122.3.579.2.593 1950 Unknown [id number] 2.16.84 0.1.590379.3.579.2.1259 1950 Unknown [id number] 2.16.84 0.1.248464.3.579.2.1259 1950 Unknown [id number] 2.16.84 0.1.494510.3.579.2.1259 1950 Unknown [id number] 2.16.84 0.1.622791.3.579.2.1259 1950 Unknown [id number] 2.16.840 .1.078990.3.579.2.9 1950 Unknown [id number] 2.16.840 .1.345933.3.579.2.9 1950 Unknown [id number] 2.16.840 .1.930736.3.579.2.1258 1950 Unknown [id number] 2.16.840 .1.880657.3.579.2.9 Unknown [id number] 2.16.8 40.1.113480.3.579.2.531 Summary Purpose Family History No Family History Records FoundNo Family History Records FoundNo Family History Records Found Advance Directives No Advanced Directives Records FoundNo Advanced Directives Records FoundNo Advanced Directives Records Found Additional Source Comments INFORMATION SOURCE (unrecogn ized section and content) DATE CREATED AUTHOR 08/29/2022 [facility] DATE CREATED AUTHOR AUTHOR'S ORGANIZ ATION 11/17/2023 [facility] DATE CREATED AUTHOR AUTHOR'S ORGANIZ ATION 05/14/2024 [facility] EPIC FOR RECORDS PERTAINING [...] BE BASED ON THE PRIMARY CLINICAL RECORDS. [employer] [facility]. provides no warranty or guarantee of the accuracy or completeness of information in this document.
== END 2024-06-10 09:25 | disposition home or self-care (01) ==
LOC: MAMMO 09:24
PROVIDERS: PCP Family Medicine; Visit Provider Family Medicine
DX: Z12.31 Encounter for screening mammogram for malignant neoplasm of breast (principal); Z90.710 Acquired absence of both cervix and uterus; M85.88 Other specified disorders of bone density and structure, other site; Z78.0 Asymptomatic menopausal state; M85.80 Other specified disorders of bone density and structure, unspecified site
CPT/HCPCS: 77063; 77067; 77080

== ENCOUNTER 2025-06-25 09:58 | Emergency (ER) | payer MEDICARE, OTHER, SELFPAY ==
--- OUTSIDE RECORDS SUMMARY | 2025-06-25 10:04 | XMS_ITS | Encounter Summary ---
Author Organization [facility] Address [address] [place] [address] Care Team Providers Care Steward/Stewardess Night Name Role Phone Fredrick Haywood MD Unavailable [phone] Fredrick Haywood MD Primary Care Provider [phone] Win Brooke MD Unavailable [phone] Billie Cruz MD Unavailable [phone] Fredrick Haywood MD Primary Care Provider [phone] Encounter Details Date Type Department Care Team (Late st Contact Info) Description 10/24/2023 Abstract [facility] [address] [place] [address] Greg Pelayo MD [address] [phone] Social History Tobacco Use Types Packs/Day Years Used Date Smoking Tobacco: Never Smokeless Tobacco: Never Alcohol Use Standard Drinks/Week Comments Yes 2 (1 standard drink = 0.6 oz pure alcohol) 1 or 2 drinks, monthly or less, caffeine intake: 2-3 cups per day Humiliation, Afraid, Rape, and Kick questionnair e Answer Date Recorded Within the last year, have y ou been afraid of your partner or ex-partner? No 09/25/2023 Within the last year, have y ou been humiliated or emotionally abused in other ways by your partner or ex-partner? No Within the last year, have y ou been kicked, hit, slapped, or otherwise physically hurt by your partner or ex-partner? No 09/25/2023 Within the last year, have y ou been raped or forced to have any kind of sexual activity by your partner or ex-partner? No 09/25/2023 Social Connection and Isolat ion Panel [NHANES] Answer Date Recorded In a typical week, how many times do you talk on the phone with family, friends, or neighbors? More than three times a week 09/25/2023 How often do you get togethe r with friends or relatives? Twice a week 09/25/2023 How often do you attend chur ch or judaism services? More than 4 times per year 09/25/2023 Do you belong to any clubs o r organizations such as sikh groups, unions, fraternal or athletic groups, or school groups? Yes 09/25/2023 How often do you attend meet ings of the clubs or organizations you belong to? More than 4 times per year 09/25/2023 Are you , , di vorced, , never , or living with a partner? 09/25/2023 AUDIT-C Answer Date Recorded Q1: How often do you have a drink containing alc ohol? Monthly or less 09/25/2023 Q2: How many drinks containi ng alcohol do you have on a typical day when you are drinking? 1 or 2 09/25/2023 Q3: How often do you have si x or more drinks on one occasion? Never 09/25/2023 Overall Financial Resource Strain (CARDIA) Answe r Date Recorded How hard is it for you to pa y for the very basics like food, housing, medical care, and heating? Not hard at all 09/25/2023 PHQ-2 Answer Date Recorded Patient Health Questionnaire-2 Score 0 08/07/2023 [facility] - Occupational Stress Questionnaire Answer Date Recorded Do you feel stress - tense, restless, nervous, or anxious, or unable to sleep at night because your mind is troubled all the time - these days? Not at all 09/25/2023 Exercise Vital Sign Answer Date Recorde d On average, how many days pe r week do you engage in moderate to strenuous exercise (like a brisk walk)? 3 days 09/25/2023 On average, how many minutes do you engage in exercise at this level? 30 min 09/25/2023 Hunger Vital Sign Answer Date Recorded Within the past 12 months, y ou worried that your food would run out before you got the money to buy more. Never true 09/25/20 23 Within the past 12 months, t he food you bought just didn't last and you didn't have money to get more. Never true 09/25/2023 PRAPARE - Transportation Answer Date Re corded In the past 12 months, has l ack of transportation kept you from medical appointments or from getting medications? No 08/30 In the past 12 months, has l ack of transportation kept you from meetings, work, or from getting things needed for daily living? No 09/25/2023 Housing Stability Vital Sign Answer [place] e Recorded In the last 12 months, was t here a time when you were not able to pay the mortgage or rent on time? No 09/25/2023 In the last 12 months, how many places have you lived? 1 09/25/2023 In the last 12 months, was t here a time when you did not have a steady place to sleep or slept in a assisted (including now)? No 09/25/2023 Comments No Sex and Gender Information Value Date Recorded Sex Assigned at Not on file Legal Sex Female 6:54 PM EDT Gender Identity Female 01/10/2023 6:54 PM EDT Sexual Orientation Not on file Occupation Industry Job Start Date Job End Date Retired Not on file Not on file Not on file COVID-19 Exposure Response Date Recorded In the last 10 days, have yo u been in contact with someone who was confirmed or suspected to have Coronavirus/COVID-19? No / Unsure 09/25/2023 10:14 AM EST documented as of this encounter Plan of Treatment Upcoming Encounters Date Type Department Care Team (Late st Contact Info) Description 09/08/2025 8:30 AM EST Office Visit [facility] [address] [facility] [place] [phone] Fredrick Haywood MD 112 [facility] [address] [place] [address] (Fax) 05/06/2026 2:00 PM EDT Office Visit [facility] [address] [facility] [place] [place] [address] Fredrick Haywood MD 112 [address] [place] [address] (Fax) documented as of this encounter Visit Diagnoses Not on filedocumented in this encounter Additional Health Concerns Assessment Noted Time PHQ-9 Depression Total Score: 0 05/07/20 8:00 AM EDT documented as of this encounter Care Teams Steward/Stewardess Night Relationship Specialty Start Date End Date Fredrick Haywood MD [address] [address] [place] [address] (Fax) PCP - ACO Reach 03/22/23 Fredrick Haywood MD [address] [phone] (Fax) PCP - General Family Medicine 03/28/23 05/04/25 Fredrick Haywood MD 112 [address] [place] [address] (Fax) PCP - General Family Medicine 05/05/25 Win Brooke MD 703 [place] [phone] Referring Physician Optometry 03/02/25 Billie Cruz MD [address] [place] [address], [address] [place] [phone] Referring Physician Retina Ophthalmology 03/02/25 documented as of this encounter
[2025-06-25 10:05] VITALS: BP 177/98; PULSE 79; TEMP 37.1; O2SAT 98; BMI 24.0
--- OUTSIDE RECORDS SUMMARY | 2025-06-25 10:06 | XMS_ITS | Encounter Summary ---
Author Organization [facility] Address [address] [place] [address] Care Team Providers Care Activity Aid Name Role Phone Fredrick Haywood MD Unavailable [phone] Fredrick Haywood MD Primary Care Provider [phone] Win Brooke MD Unavailable [phone] Billie Cruz MD Unavailable Fredrick Haywood MD Primary Care Provider [phone] Encounter Details Date Type Department Care Team (Late st Contact Info) Description 05/14/2023 Abstract [facility] Medicine [address] [place] [address] Fredrick Haywood MD 112 [facility] [address] [place] [phone] (Fax) Social History Tobacco Use Types Packs/Day Years [...] afraid of your partner or ex-partner? No 04/30/2023 Within the last year, have y ou been humiliated or emotionally abused in other ways by your partner or ex-partner? No Within the last year, have y ou been kicked, hit, slapped, or otherwise physically hurt by your partner or ex-partner? No 04/30/2023 Within the last year, have y ou been raped or forced to have any kind of sexual activity by your partner or ex-partner? No 04/30/2023 Social Connection and Isolat ion Panel [NHANES] Answer Date Recorded In a typical week, how many times do you talk on the phone with family, friends, or neighbors? More than three times a week 04/30/2023 How often do you get togethe r with friends or relatives? More than three times a week 04/30/2023 How often do you attend chur ch or judaism services? More than 4 times per year 04/30/2023 Do you belong to any clubs o r organizations such as sabianist groups, unions, fraternal or athletic groups, or school groups? Yes 04/30/2023 How often do you attend meet ings of the clubs or organizations you belong to? More than 4 times per year 04/30/2023 Are you , , di vorced, , never , or living with a partner? 04/30/2023 AUDIT-C Answer Date Recorded Q1: How often do you have a drink containing alc ohol? Never 05/08/2023 Q2: How many drinks containi ng alcohol do you have on a typical day when you are drinking? 1 or 2 05/08/2023 Q3: How often do you have si x or more drinks on one occasion? Less than monthly 05/08/2023 Overall Financial Resource Strain (CARDIA) Answe r Date Recorded How hard is it for you to pa y for the very basics like food, housing, medical care, and heating? Not hard at all 04/30/2023 PHQ-2 Answer Date Recorded Patient Health Questionnaire-2 Score 0 05/07/2023 [facility] - Occupational Stress Questionnaire Answer Date Recorded Do you feel stress - tense, restless, nervous, or anxious, or unable to sleep at night because your mind is troubled all the time - these days? Not at all 04/30/2023 Exercise Vital Sign Answer Date Recorde d On average, how many days pe r week do you engage in moderate to strenuous exercise (like a brisk walk)? 3 days 04/30/2023 On average, how many minutes do you engage in exercise at this level? 30 min 04/30/2023 Hunger Vital Sign Answer Date Recorded Within the past 12 months, y ou worried that your food would run out before you got the money to buy more. Never true 04/30/20 23 Within the past 12 months, t he food you bought just didn't last and you didn't have money to get more. Never true 04/30/2023 PRAPARE - Transportation Answer Date Re corded In the past 12 months, has l ack of transportation kept you from medical appointments or from getting medications? No 12/2022 In the past 12 months, has l ack of transportation kept you from meetings, work, or from getting things needed for daily living? No 04/30/2023 Housing Stability Vital Sign Answer [place] e Recorded In the last 12 months, was t here a time when you were not able to pay the mortgage or rent on time? No 04/30/2023 In the last 12 months, how many places have you lived? 1 04/30/2023 In the last 12 months, was t here a time when you did not have a steady place to sleep or slept in a mcc (including now)? No 04/30/2023 Comments No Sex and Gender Information Value Date Recorded Sex Assigned at Not on file Legal Sex Female 6:54 PM EDT Gender Identity Female 01/10/2023 6:54 PM EDT Sexual Orientation Not on file COVID-19 Exposure Response Date Recorded In the last 10 days, have yo u been in contact with someone who was confirmed or suspected to have Coronavirus/COVID-19? No / Unsure 05/07/2023 9:06 AM EDT documented as of this encounter Plan of Treatment Upcoming Encounters Date Type Department Care Team (Late st Contact Info) Description 09/08/2025 8:30 AM EST Office Visit [facility] [address] [facility] [address] [place] [address] Fredrick Haywood MD 112 [facility] [place] [address] (Fax) 05/06/2026 2:00 PM EDT Office Visit [facility] [address] [facility] [address] [place] [address] Fredrick Haywood MD 112 [address] [place] [address] (Fax) documented as of this encounter Visit Diagnoses Not on filedocumented in this encounter Additional Health Concerns Assessment Noted Time PHQ-9 Depression Total Score: 0 05/07/20 8:00 AM EDT documented as of this encounter Care Teams Activity Aid Relationship Specialty Start Date End Date Fredrick Haywood MD [address] [address] (Fax) PCP - ACO Reach 03/22/23 Fredrick Haywood MD [address] [address] (Fax) PCP - General Family Medicine 03/28/23 05/04/25 Fredrick Haywood MD [address] [address] (Fax) PCP - General Family Medicine 05/05/25 Win Brooke MD 703 [place] [phone] Referring Physician Optometry 03/02/25 Billie Cruz MD [address] [place] [address], [address] [place], [place] [phone] Referring Physician Retina Ophthalmology 03/02/25 documented as of this encounter
--- OUTSIDE RECORDS SUMMARY | 2025-06-25 10:06 | XMS_ITS | Clinical Summary ---
Author Organization [facility] Address [address] [place] [address] Care Team Providers Care Social Services Technician Name Role Phone Fredrick Jerome MD Unavailable Win Brooke MD Unavailable [phone] Billie Cruz MD Unavailable [phone] Fredrick Jerome MD Primary Care Provider Allergies Active Allergy Reactions Criticality Noted Date Comments Hydrochlorothiazide 03/02/2023 Other Reaction(s): dizziness, Dizziness or Vertigo Medications aspirin 81 MG EC tablet Take 81 mg by mouth in the morning. Active magnesium 100 MG tablet 1 (one) time each day at the same time. Active Krill Oil 1000 MG capsule Take 1 capsule by mouth in the morning. Active Potassium 99 MG tablet Take 1 tablet by mouth in the morning. Active alpha tocopherol (Vitamin E) 100 units capsule Take 100 Units by mouth in the morning. Active Ascorbic Acid (vitamin C) 1000 MG tablet Take 1,000 mg by mouth in the morning. Active Cranberry-Vitami n C-Vitamin E (CRANBERRY PLUS VITAMIN C PO) Cranberry Plus Vitamin C Active calcium citrate 1040 MG tablet Take 1 tablet by mouth in the morning and 1 tablet before bedtime. Active Pediatric Multiple Vitamins (THERA MULTI-VITAMIN PO) 1 twice a day Orally Active cholecalciferol (Vitamin D-3) 50 MCG (1999 UT) tablet 1 tablet Orally Once a day - during the winter then 2,000units in spring Active mirabegron ER (Myrbetriq) 50 MG 24 hr tablet Take 50 mg by mouth in the morning. 3 Active rosuvastatin (Crestor) 10 MG tabletIndication s:Mixed dyslipidemia Take 1 tablet (10 mg) by mouth in the evening 90 tablet 1 5 09/13/20 25 Active raloxifene (Evista) 60 MG tabletIndication s:Osteopenia of spine Take 1 tablet (60 mg) by mouth Daily 90 tablet 1 5 09/13/20 25 Active estradiol (Estrace) 0.1 MG/GM vaginal creamIndications :Hx of hysterectomy, total,Symptomati c states associated with artificial menopause Insert 1 g into the vagina 3 (three) times a week 42.5 g 11 5 Active estradiol (Estrace) 0.1 MG/GM vaginal cream Insert 1 g into the vagina 3 (three) times a week. 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 Heart murmur 03/22/2023 Hx of hysterectomy, total 03/22/2023 Hypertensive nephropathy 03/22/2023 Microalbuminuria 03/22/2023 Mixed dyslipidemia 03/22/2023 Other specified disorders of bone density and structure, right thigh 03/22/2023 Osteopenia of spine 03/22/2023 PVC's (premature ventricular contractions) 03/22 Stage 2 chronic kidney disease 03/22/2023 Symptomatic states associated with artificial me nopause 03/22/2023 Vitamin D deficiency 03/22/2023 White matter disease 03/22/2023 Resolved Problems Problem Noted Date Diagnosed Date Resolved Date Overweight (BMI 25.0-29.9) 03/22/2023 0 03/18/2024 Spasm of bladder 03/22/2023 05/05/2025 Encounters Date Type Department Care Team Description 05/28/[address] [facility] [address] [address] KaylynnAna Paula, TYLER Care Coordination 05/05/2025 2:00 PM EDT Office Visit [facility] [address] Fredrick Jerome MD Encounter for Medicare annual wellness exam (Primary Dx); Advance directive in chart; Encounter for screening for other disorder; Screening for alcohol problem; Hx of hysterectomy, total; Cardiovascular event risk 05/05/2025 Bamboo flowsheet [facility] [address] [address] Fredrick Jerome MD 05/05/2025 Travel 04/28/2025 Travel from Last 3 Months Immunizations Immunization Administration Dates Next Due Influenza, High Dose Seasona l, Preservative Free 11/14/2024,07/31/2020,09/15/2019,08/07 Influenza, High-dose Seasona l, Quadrivalent, Preservative Free 09/06/2022,08/03/2021 Influenza, Seasonal, Quadriv alent, Adjuvanted 08/03/2023 Influenza, injectable, quadr ivalent, preservative free 09/03/2017,09/18/2016 Influenza, seasonal, injecta ble, preservative free 10/08/2015 Influenza, seasonal, intrade rmal, preservative free 08/13/2013 Pneumococcal Conjugate PCV 13 03/02/2016 Pneumococcal Polysaccharide PPSV23 05/08/2017, RSV, recombinant, protein faria bunit RSVpreF, adjuvant reconstitu, 120mcg/0.5mL, PF (Arexvy) 09/26/2023 Zoster, Recombinant 08/30/2023,05/19/2023 Family History Medical History Relation Name Comments Atrial fibrillation Brother 1 Justin Heart disease Brother 1 Justin Pacemaker Brother 1 Justin Heart disease Brother 2 Junaid Cancer Brother 3 Clyde No Known Problems Daughter Alcohol abuse Father Dad Heart disease Father Dad Hypertension Mother Mom Stroke Mother Mom Cancer Sister Carmelita No Known Problems Son Relation Name Status Comments Brother 1 Justin 2 brothers Brother 2 Junaid Alive 2 brothers Brother 3 Clyde Daughter Alive 2 daughters Father Dad Mother Mom Sister Carmelita 2 sisters Son Alive 1 son Social History Tobacco Use Types Packs/Day Years Used Date Smoking Tobacco: Never Smokeless Tobacco: Never Tobacco Cessation:Counseling Given: Not Answered Alcohol Use Standard Drinks/Week Comments Yes 2 (1 standard drink = 0.6 oz pur e alcohol) Very occasionaly [id number] Health Literacy Answer Date Recor ded How often do you need to hav e someone help you when you read instructions, pamphlets, or other written material from your doctor or pharmacy? Never 03/16/2025 Humiliation, Afraid, Rape, and Kick questionnair e Answer Date Recorded Within the last year, have y ou been afraid of your partner or ex-partner? No 03/16/2025 Within the last year, have y ou been humiliated or emotionally abused in other ways by your partner or ex-partner? No Within the last year, have y ou been kicked, hit, slapped, or otherwise physically hurt by your partner or ex-partner? No 03/16/2025 Within the last year, have y ou been raped or forced to have any kind of sexual activity by your partner or ex-partner? No 03/16/2025 Social Connection and Isolat ion Panel [NHANES] Answer Date Recorded In a typical week, how many times do you talk on the phone with family, friends, or neighbors? More than three times a week 03/16/2025 How often do you get togethe r with friends or relatives? More than three times a week 03/16/2025 How often do you attend [facility] or nondenominational services? More than 4 times per year 03/16/2025 Do you belong to any clubs o r organizations such as mosque groups, unions, fraternal or athletic groups, or school groups? Yes 03/16/2025 How often do you attend meet ings of the clubs or organizations you belong to? More than 4 times per year 03/16/2025 Are you , , di vorced, , never , or living with a partner? 03/16/2025 AUDIT-C Answer Date Recorded Q1: How often do you have a drink containing alc ohol? Monthly or less 03/16/2025 Q2: How many drinks containi ng alcohol do you have on a typical day when you are drinking? 1 or 2 03/16/2025 Q3: How often do you have si x or more drinks on one occasion? Never 03/16/2025 Overall Financial Resource Strain (CARDIA) Answe r Date Recorded How hard is it for you to pa y for the very basics like food, housing, medical care, and heating? Not hard at all 03/16/2025 PHQ-2 Answer Date Recorded Patient Health Questionnaire-2 Score 0 04/28/2025 [facility] - Occupational Stress Questionnaire Answer Date Recorded Do you feel stress - tense, restless, nervous, or anxious, or unable to sleep at night because your mind is troubled all the time - these days? Rather much 03/16/2025 Exercise Vital Sign Answer Date Recorde d Days of Exercise per Week Not on file 2024 On average, how many minutes do you engage in exercise at this level? 20 min 03/16/2025 Hunger Vital Sign Answer Date Recorded Within the past 12 months, y ou worried that your food would run out before you got the money to buy more. Never true 03/16/20 25 Within the past 12 months, t he food you bought just didn't last and you didn't have money to get more. Never true 03/16/2025 PRAPARE - Transportation Answer Date Re corded In the past 12 months, has l ack of transportation kept you from medical appointments or from getting medications? No 02/26 In the past 12 months, has l ack of transportation kept you from meetings, work, or from getting things needed for daily living? No 03/16/2025 Housing Stability Vital Sign Answer [place] e [...] place to sleep or slept in a residential (including now)? No 09/25/2023 Housing Stability Vital Sign Answer [place] e Recorded In the last 12 months, was t here a time when you were not able to pay the mortgage or rent on time? No 03/16/2025 In the past 12 months, how m any times have you moved where you were living? 0 03/16/2025 At any time in the past 12 m [facility], were you homeless or living in a residential (including now)? No 03/16/2025 Comments No Sex and Gender Information Value Date Recorded Sex Assigned at Not on file Legal Sex Female 6:54 PM EDT Gender Identity Female 01/10/2023 6:54 PM EDT Sexual Orientation Not on file Occupation Industry Job Start Date Job End Date Retired Not on file Not on file Not on file Last Filed Vital Signs Vital Sign Reading Time Taken Comments Blood Pressure 126/76 05/05/2025 2:33 PM EDT Pulse 59 05/05/2025 2:33 PM EDT Temperature - - Respiratory Rate - - Oxygen Saturation 96% 05/05/2025 2:33 PM EDT Inhaled Oxygen Concentration - - Weight 67.6 kg (149 lb) 05/05/2025 2:33 PM EDT Height 167.6 cm (5' 6 ) 05/05/2025 2:33 PM EDT Body Mass Index 24.05 05/05/2025 2:33 PM EDT Plan of Treatment Upcoming Encounters Date Type Department Care Team (Late st Contact Info) Description 09/08/2025 8:30 AM EST Office Visit [facility] [address] [facility] [address] [place] [address] Fredrick Jerome MD 112 [facility] [address] [place] [address] (Fax) 05/06/2026 2:00 PM EDT Office Visit [facility] [address] [facility] [address] [place] [address] Fredrick Jerome MD 112 [facility] [address] [place] [address] Health Maintenance Due Date Last Done Comments CT Colonography 1950 FIT-DNA 1950 FIT 1950 FOBT 1950 Sigmoidoscopy 1950 Mammogram 06/10/2025 06/10/2024, 090 06/2022, 05/31/2020, Additional history exists Influenza Vaccine (#1) 2025 , 08/03/2023, 09/06/2022, Additional history exists Medicare Annual Wellness (AWV) 05/05/2026 0 05/05/2025, 05/08/2024, 05/07/2023, Additional history exists Colonoscopy 10/24/2033 10/24/2023, 05/08/2018 Colorectal Cancer Screening 10/24/2033 Pneumococcal Vaccine: 65+ Years Completed 05/08/2017, 03/09/2016, 03/02/2016 Procedures Procedure Name Priority Date/Time Associated Diagnosis Comments MM TOMOSYNTHESIS SCREENING BI 06/10/2024 11:45 AM EDT COLONOSCOPY Routine 05/08/2018 12:00 PM EDT from Last 3 Months or Most Recently Relevant to Health Maintenance Results * MM TOMOSYNTHESIS SCREENING BI (06/10/2024 11:45 AM EDT) Anatomical Region Laterality Modality Other 06/10/2024 11:4 5 AM EDT Narrative 06/10/2024 11:46 AM EDT The [address] [address] Mammography Report Signed Patient: KRISTAN BARKER MR#: [id number] : 1950 Acct:[id number] Age/Sex: 73 / F ADM Date: 06/10/24 Loc: MAMMO Attending Dr: FREDRICK JEROME Ordering Physician: FREDRICK JEROME Results: Date of Service: 06/10/24 Follow Up: Procedure(s): MM tomosynthesis screening BI Accession Number(s): [id number] cc: FREDRICK JEROME Patient Name: KRISTAN BARKER MR#: [id number] : 1950 Exam Date: 06/10/2024 Ordering Doctor: DR FREDRICK JEROME . RADIOLOGY REPORT PROCEDURE: MM TOMOSYNTHESIS SCREENING BI COMPARISON: MG MAMM SCREEN RADHA W CAD, 05/31/2020. MG MAMM SCREEN 3D RADHA CAD, 07/07/2022. INDICATIONS: Screening Calculator Name NCI Breast Cancer Risk Assessment Tool 5 Year Breast Cancer Risk 1.60% Lifetime Breast Cancer Risk 3.90% Personal Breast Cancer No Personal Ovarian Cancer No Treatments None Family Cancers None LOCATION: [facility] BREAST COMPOSITION: There are scattered areas of fibroglandular density. FINDINGS: DIAGNOSTIC CATEGORY 2--BENIGN FINDING. NO CHANGE FROM COMPARISON. Scattered benign-appearing calcifications are present. RIGHT BREAST: No significant suspicious finding. LEFT BREAST: No significant suspicious finding. RECOMMENDATIONS: ROUTINE MAMMOGRAM AND CLINICAL EVALUATION IN 12 MONTHS. PLEASE NOTE: A NORMAL MAMMOGRAM DOES NOT EXCLUDE THE POSSIBILITY OF BREAST CANCER. A CLINICALLY SUSPICIOUS PALPABLE LUMP SHOULD BE BIOPSIED. Dictated by: David Castro MD on 06/10/2024 at 11:44 Approved by: David Castro MD on 06/10/2024 at 11:45 Dictated By: David Castro M.D. Signed By: 06/10/24 1146 DD/ 1145 TD/TT: Asic Design Engineer: Procedure Note Radiology, Radiologist, - 06/10/2024 [place] [address] Mammography Report Signed Patient: KRISTAN BARKER KMR#: [id number] : 1950cct:[id number] Age/Sex: 73 / FADM Date: 06/10/24 Loc: MAMMO Attending Dr: FREDRICK JEROME Ordering Physician: FREDRICK JEROMEResults: Date of Service: 06/10/24Follow Up: Procedure(s): MM tomosynthesis screening BI Accession Number(s): [id number] cc: FREDRICK JEROME Patient Name: KRISTAN BARKER MR#: [id number] : 1950 Exam Date: 06/10/2024 Ordering Doctor: DR FREDRICK JEROME . RADIOLOGY REPORT PROCEDURE: MM TOMOSYNTHESIS SCREENING BI COMPARISON: MG MAMM SCREEN RADHA W CAD, 05/31/2020. MG MAMM SCREEN 3DBIL CAD, 07/07/2022. INDICATIONS: Screening Calculator Name NCI Breast Cancer Risk Assessment Tool 5 Year Breast Cancer Risk 1.60% Lifetime Breast Cancer Risk 3.90% Personal Breast Cancer No Personal Ovarian Cancer No Treatments None Family Cancers None LOCATION: [facility] BREAST COMPOSITION: There are scattered areas of fibroglandulardensity. FINDINGS: DIAGNOSTIC CATEGORY 2--BENIGN FINDING. NO CHANGE FROM COMPARISON.Scattered benign-appearing calcifications are present. RIGHT BREAST: No significant suspicious finding. LEFT BREAST: No significant suspicious finding. RECOMMENDATIONS: ROUTINE MAMMOGRAM AND CLINICAL EVALUATION IN 12 MONTHS. PLEASE NOTE: A NORMAL MAMMOGRAM DOES NOT EXCLUDE THE POSSIBILITY OFBREAST CANCER. A CLINICALLY SUSPICIOUS PALPABLE LUMP SHOULD BE BIOPSIED. Dictated by: David Castro MD on 06/10/2024 at 11:44 Approved by: David Castro MD on 06/10/2024 at 11:45 Dictated By: David Castro M.D. Signed By:06/10/24 1146 DD/ 1145 TD/TT: Asic Design Engineer: Fredrick Jerome MD [facility] Final Resu lt * Colonoscopy (05/08/2018 12:00 PM EDT) Anatomical Region Laterality Modality Endoscopy 05/08/2018 12:0 0 PM EDT Narrative 05/08/2018 12:00 PM EDT PERFORMED AT [facility] LOCATION:[id number] Normal Procedure Note CONVERSION, GENERIC - 03/14/2023 PERFORMED AT [facility] LOCATION:[id number] Normal Fredrick Jerome MD ENDOSCOPY PROCEDURE ORDERABL ES Final Result from Last 3 Months or Most Recently Relevant to Health Maintenance Insurance MEDICARE [facility] Advance Directives Documents on File Type Date Recorded 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
--- OUTSIDE RECORDS SUMMARY | 2025-06-25 10:06 | XMS_ITS | Encounter Summary ---
Author Organization [facility] Address [address] [place] [address] Care Team Providers Care Motion Picture Critic Name Role Phone Fredrick Jerome MD Unavailable [phone] Fredrick Jerome MD Primary Care Provider [phone] Win Brooke MD Unavailable [phone] Billie Cruz MD Unavailable [phone] Fredrick Jerome MD Primary Care Provider [phone] Encounter Details Date Type Department Care Team (Late st Contact Info) Description 06/11/2024 Clinisync Result Encounter [facility] External Department Unsolicited Fredrick Jerome MD [address] [place] [address] (Fax) Social History Tobacco Use Types Packs/Day Years Used Date Smoking Tobacco: Never Smokeless Tobacco: Never Alcohol Use Standard Drinks/Week Comments Yes 2 (1 standard drink = 0.6 oz pur e alcohol) Very occasionaly Humiliation, Afraid, Rape, and Kick questionnair e [...] week 09/25/2023 How often do you attend [facility] or christianity services? More than 4 times per year 09/25/2023 Do you belong to any clubs o r organizations such as yazidi groups, unions, fraternal or athletic groups, or [...] Date Recorded Patient Health Questionnaire-2 Score 0 05/01/2024 [facility] of Occupat ional Health - Occupational Stress [...] place to sleep or slept in a care home (including now)? No 09/25/2023 Comments No Sex and Gender Information Value Date Recorded Sex Assigned at Not on file Legal Sex Female 6:54 PM EDT Gender Identity Female 01/10/2023 6:54 PM EDT Sexual Orientation Not on file Occupation Industry Job Start Date Job End Date Retired Not on file Not on file Not on file documented as of this encounter Plan of Treatment Upcoming Encounters Date Type Department Care Team (Late st Contact Info) Description 09/08/2025 8:30 AM EST Office Visit [facility] 112 [facility] 100 [place] [address] Frderick Jerome MD 112 [facility] [address] [place] [address] 05/06/2026 2:00 PM EDT Office Visit [facility] 112 [facility] [address] [place] [address] Fredrick Jerome MD 112 [facility] 100 [place] [address] documented as of this encounter Procedures Procedure Name Priority Date/Time Associated Diagnosis Comments XR DEXA AXIAL SKELETON 06/11/2024 5:28 AM EDT documented in this encounter Results * XR DEXA AXIAL SKELETON (06/11/2024 5:28 AM EDT) Anatomical Region Laterality Modality Other 06/11/2024 5:28 AM EDT Narrative 06/11/2024 5:31 AM EDT [address] [address] XRay Report Signed Patient: KRISTAN BARKER MR#: [id number] : 1950 Acct:[id number] Age/Sex: 73 / F ADM Date: 06/10/24 Loc: MAMMO Attending Dr: FREDRICK JEROME Ordering Physician: FREDRICK JEROME Date of Service: 06/10/24 Procedure(s): XR DEXA axial skeleton Accession Number(s): [id number] cc: FREDRICK JEROME [address] [address] Patient Name: KRISTAN BARKER MRN: [id number] date: 1950 Sex: F Assigned Patient Location: MAMMO Current Patient Location: Accession/Order Number: [id number] Exam Date: 06/10/2024 09:48 Report Date: 06/11/2024 05:28 At the request of: FREDRICK JEROME Procedure: XR DEXA axial skeleton EXAMINATION: XR DEXA axial skeleton HISTORY: History Of Hysterectomy Z90.710, Osteopenia COMPARISON: DEXA bone densitometry 05/25/2023 TECHNIQUE: Dual-energy X-ray absorptiometry (DXA) was performed. FINDINGS: SPINE ANALYSIS: Average bone mineral density is 0.964 g/cm2. T-score (standard deviation relative to young adult mean): -1.8 . +4.5% change is prior study. HIP ANALYSIS: Lowest bone mineral density is within the left femoral neck, 0.9 x 6 g/cm2. T-score (standard deviation relative to young adult mean): -0.6 . +2.6% change since prior study. XR/XR DEXA axial skeleton IMPRESSION: World Health Organization Classification: Osteopenia - Moderate Fracture Risk FRAX: Cannot calculate. Pharmacologic treatment recommendations * No uniform recommendation applies to all patients. Management plans must be individualized. * Consider initiating pharmacologic treatment in postmenopausal women and men >= 50 years of age who have the following: Primary fracture prevention: * T-score <= - 2.5 at the femoral neck, total hip, lumbar spine, 33% radius (some uncertainty with existing data) by DXA. * Low bone mass (osteopenia: T-score between - 1.0 and - 2.5) at the femoral neck or total hip by DXA with a 10-year hip fracture risk >= 3% or a 10-year major osteoporosis-related fracture risk >= 20% (i.e., clinical vertebral, hip, forearm, or proximal humerus) based on the US-adapted FRAXregistered model. Secondary fracture prevention: * Fracture of the hip or vertebra regardless of BMD [4, 5]. * Fracture of proximal humerus, pelvis, or distal forearm in persons with low bone mass (osteopenia: T-score between - 1.0 and - 2.5). The decision to treat should be individualized in persons with a fracture of the proximal humerus, pelvis, or distal forearm who do not have osteopenia or low BMD [12, 13]. Rach MS, Jennifer SL, Yuni KL, Franklin EM, Estuardo KG, AJ, Karo ES. The clinician's guide to prevention and treatment of osteoporosis. Osteoporos Int. 2021;33(10):4003-4020. doi: 10.1007/j94860-418-41447-s. Epub 2021Feb 23. Erratum in: Osteoporos Int. 2021May 25;: PMID: 41370736; PMCID: [id number]. Electronically authenticated by: WILVER DEJESUS Date: 06/11/2024 05:28 Dictated By: Wilver Dejesus M.D. Signed By: 06/11/24530 DD/ 7 TD/TT: Washing Machine Assembler: Procedure Note Radiology, Radiologist, MD - 06/11/2024 [place] [address] XRay Report Signed Patient: KRISTAN BARKER KMR#: [id number] : 1950cct:[id number] Age/Sex: 73 / FADM Date: 06/10/24 Loc: MAMMO Attending Dr: FREDRICK JEROME Ordering Physician: FREDRICK JEROME Date of Service: 06/10/24 Procedure(s): XR DEXA axial skeleton Accession Number(s): [id number] cc: FREDRICK JEROME [place] [id number] Patient Name: KRISTAN BARKER MRN: [facility]:[id number] date: 1950 Sex: F Assigned Patient Location: [facility] Current Patient Location: Accession/Order Number: [id number] Exam Date: 06/10/2024 09:48 Report Date: 06/11/2024 05:28 At the request of: FREDRICK JEROME Procedure: XR DEXA axial skeleton EXAMINATION: XR DEXA axial skeleton HISTORY: History Of Hysterectomy Z90.710, Osteopenia COMPARISON: DEXA bone densitometry 05/25/2023 TECHNIQUE: Dual-energy X-ray absorptiometry (DXA) was performed. FINDINGS: SPINE ANALYSIS: Average bone mineral density is 0.964 g/cm2. T-score (standard deviation relative to young adult mean): -1.8 . +4.5% change is prior study. HIP ANALYSIS: Lowest bone mineral density is within the left femoral neck, 0.9 x 6g/cm2. T-score (standard deviation relative to young adult mean): -0.6 . +2.6% change since prior study. XR/XR DEXA axial skeleton IMPRESSION: World Health Organization Classification: Osteopenia - Moderate FractureRisk FRAX: Cannot calculate. Pharmacologic treatment recommendations * No uniform recommendation applies to all patients. Management plans mustbe individualized. * Consider initiating pharmacologic treatment in postmenopausal women andmen >= 50 years of age who have the following: Primary fracture prevention: * T-score <= - 2.5 at the femoral neck, total hip, lumbar spine, 33%radius (some uncertainty with existing data) by DXA. * Low bone mass (osteopenia: T-score between - 1.0 and - 2.5) at thefemoral neck or total hip by DXA with a 10-year hip fracture risk >= 3% or [id number] major osteoporosis-related fracture risk >= 20% (i.e., clinical vertebral, hip, forearm, or proximal humerus) based on the US-adapted FRAXregisteredmodel. Secondary fracture prevention: * Fracture of the hip or vertebra regardless of BMD [4, 5]. * Fracture of proximal humerus, pelvis, or distal forearm in persons withlow bone mass (osteopenia: T-score between - 1.0 and - 2.5). The decision totreat should be individualized in persons with a fracture of the proximalhumerus, pelvis, or distal forearm who do not have osteopenia or low BMD [12, 13]. Rach MS, Jennifer SL, Yuni KL, Franklin EM, Estuardo KG, AJ,Karo ES. The clinician's guide to prevention and treatment of osteoporosis.Osteoporos Int. 2021;33(10):5202-0074. doi: 10.1007/b53525-851-65630-b. Ep. Erratum in: Osteoporos Int. 2021May 25;: PMID: 40645271; PMCID: [id number]. Electronically authenticated by: WILVER DEJESUS Date: 06/11/2024 05:28 Dictated By: Wilver Dejesus M.D. Signed By:06/11/24530 DD/ 7 TD/TT: Washing Machine Assembler: Fredrick Jerome MD [facility] Final Resu lt documented in this encounter Visit Diagnoses Not on filedocumented in this encounter Additional Health Concerns Assessment Noted Time PHQ-9 Depression Total Score: 0 05/07/20 23 8:00 AM EDT documented as of this encounter Care Teams Motion Picture Critic Relationship Specialty Start Date End Date Fredrick Jerome MD [address] [place] [address] (Fax) PCP - ACO Reach 03/22/23 Fredrick Jerome MD [address] [place] [address] PCP - General Family Medicine 03/28/23 05/04/25 Fredrick Jerome MD [address] [place] [address] PCP - General Family Medicine 05/05/25 Win Brooke MD [address] [place] [address] Referring Physician Optometry 03/02/25 Billie Cruz MD [address] [place] [address], [address] [place], [place] [id number] Referring Physician Retina Ophthalmology 03/02/25 documented as of this encounter
--- OUTSIDE RECORDS SUMMARY | 2025-06-25 10:06 | XMS_ITS | Encounter Summary ---
Author Organization [facility] Address [address] [place] [address] Care Team Providers Care Heel Sprayer Name Role Phone Fredrick Jerome MD Unavailable [phone] Fredrick Jerome MD Primary Care Provider [phone] Win Brooke MD Unavailable [phone] Billie Cruz MD Unavailable [phone] Fredrick Jerome MD Primary Care Provider [phone] Encounter Details Date Type Department Care Team (Late st Contact Info) Description 06/10/2024 Clinisync Result Encounter [facility] External Department Unsolicited Fredrick Jerome MD [address] [place] [address] (Fax) Social History Tobacco Use Types Packs/Day [...] week 09/25/2023 How often do you attend [facility] or sikhism services? More than 4 times per year 09/25/2023 Do you belong to any clubs o r organizations such as orthodox groups, unions, fraternal or athletic groups, or [...] Recorded Patient Health Questionnaire-2 Score 0 05/01/2024 [facility] of Occupat ional Health - Occupational Stress [...] place to sleep or slept in a fpc (including now)? No 09/25/2023 Comments No Sex [...] Visit [facility] 112 [facility] 100 [place] [address] Fredrick Jerome MD 112 [facility] 100 [place] [address] 05/06/2026 2:00 PM EDT Office Visit [facility] 112 [facility] [address] [place] [address] Fredrick Jerome MD 112 [facility] 100 [place] [address] documented as of this encounter Procedures Procedure Name Priority Date/Time Associated Diagnosis Comments MM TOMOSYNTHESIS SCREENING BI 06/10/2024 11:45 AM EDT documented in this encounter Results * MM TOMOSYNTHESIS SCREENING BI (06/10/2024 11:45 AM EDT) Anatomical Region Laterality Modality Other 06/10/2024 11:4 5 AM EDT Narrative 06/10/2024 11:46 [place] [address] Mammography Report Signed Patient: KRISTAN BARKER MR#: [id number] : 1950 Acct:[id number] Age/Sex: 73 / F ADM Date: 06/10/24 Loc: MAMMO Attending Dr: FREDRICK JEROME Ordering Physician: FREDRICK JEROME Results: Date of Service: 06/10/24 Follow Up: Procedure(s): MM tomosynthesis screening BI Accession Number(s): [id number] cc: FREDRICK JEROME Patient Name: KRISTAN BARKER MR#: [id number] : 1950 Exam Date: 06/10/2024 Ordering Doctor: [...] Treatments None Family Cancers None LOCATION: [facility] BREAST COMPOSITION: There are scattered areas [...] Signed By: 06/10/24 1146 DD/ 1145 TD/TT: Fast Food Server: Procedure Note Radiology, Radiologist, MD - 06/10/2024 [place] [address] Mammography Report Signed Patient: KRISTAN BARKER KMR#: [id number] : 1950cct:[id number] Age/Sex: 73 / FADM Date: 06/10/24 Loc: MAMMO Attending Dr: FREDRICK JEROME Ordering Physician: FREDRICK JEROMEResults: Date of Service: 06/10/24Follow Up: Procedure(s): MM tomosynthesis screening BI Accession Number(s): [id number] cc: FREDRICK JEROME Patient Name: KRISTAN BARKER MR#: [id number] : 1950 Exam Date: 06/10/2024 Ordering Doctor: [...] Treatments None Family Cancers None LOCATION: [facility] BREAST COMPOSITION: There are scattered areas [...] M.D. Signed By:06/10/24 1146 DD/ 1145 TD/TT: Fast Food Server: Fredrick Jerome MD [facility] Final Resu lt documented in this encounter Visit Diagnoses Not on filedocumented in this encounter Additional Health Concerns Assessment Noted Time PHQ-9 Depression Total Score: 0 05/07/20 23 8:00 AM EDT documented as of this encounter Care Teams Heel Sprayer Relationship Specialty Start Date End Date Fredrick Jerome MD [address] [address] PCP - ACO Reach 03/22/23 Fredrick Jerome MD [address] [address] PCP - General Family Medicine 03/28/23 05/04/25 Fredrick Jerome MD [address] [address] PCP - General Family Medicine 05/05/25 Win Brooke MD [address] [place] [address] Referring Physician Optometry 03/02/25 Billie Cruz MD [address] [place] [address], [address] [place], [place] [id number] Referring Physician Retina Ophthalmology 03/02/25 documented as of this encounter
--- OUTSIDE RECORDS SUMMARY | 2025-06-25 10:06 | XMS_ITS | Encounter Summary ---
Author Organization [facility] Address [address] [facility], [address] [place] [address] Care Team Providers Care Day Haul Or Farm Charter Bus Driver Name Role Phone Unavailable Primary Care Provider Unavailabl e Encounter Details Date Type Department Care Team (Late st Contact Info) Description 11/26/[address] [facility] Part of [address] [place] [address] Provider, Historical, Social History Tobacco Use Types Packs/Day Years Used Date Smoking Tobacco: Never Smokeless Tobacco: Never Alcohol Use Standard Drinks/Week Comments Yes 0 (1 standard drink = 0.6 oz pur e alcohol) rare Comments Unknown Sex and Gender Information Value Date Recorded Sex Assigned at Not on file Legal Sex Female 12:02 AM EST Gender Identity Not on file Sexual Orientation Not on file documented as of this encounter Plan of Treatment Not on file documented as of this encounter Procedures Procedure Name Priority Date/Time Associated Diagnosis Comments URINE CULTURE CLEAN CATCH Routine 11/24/2023 9:41 AM EST documented in this encounter Results * Urine culture clean catch (11/24/2023 9:41 AM EST) us Historical Provider MICROBIOLOGY - GENERAL OR DERABLES Final Result documented in this encounter Visit Diagnoses Not on filedocumented in this encounter
--- OUTSIDE RECORDS SUMMARY | 2025-06-25 10:06 | XMS_ITS | Encounter Summary ---
Author Organization [facility] Address [address] [facility] [place] [address] Care Team Providers Care Quality Assurance Project Manager Name Role Phone Fredrick Haywood MD Unavailable [phone] Fredrick Haywood MD Primary Care Provider [phone] Win Brooke MD Unavailable [phone] Billie Cruz MD Unavailable [phone] Fredrick Haywood MD Primary Care Provider [phone] Encounter Details Date Type Department Care Team (Late st Contact Info) Description 06/12/2024 Orders Only [facility] [place] [facility] 112 [facility] 100 [place] [address] Fredrick Haywood MD 112 [facility] 100 [place] [address] (Fax) Social History Tobacco Use Types Packs/Day [...] 09/25/2023 How often do you attend [facility] or caodaism services? More than 4 times per year 09/25/2023 Do you belong to any clubs o r organizations such as moravian groups, unions, fraternal or athletic groups, or [...] Recorded Patient Health Questionnaire-2 Score 0 05/01/2024 [facility] Occupat ional Health - Occupational Stress [...] place to sleep or slept in a senior living (including now)? No 09/25/2023 Comments No Sex [...] Office Visit [facility] [address] [place] [address] [address] [place] [address] Fredrick Haywood MD 112 [facility] [place] [address] (Fax) 05/06/2026 2:00 PM EDT Office Visit [facility] 112 [facility] [place] [address] Fredrick Haywood MD [address] [facility] [place] [address] (Fax) documented as of this encounter Visit Diagnoses Not on filedocumented in this encounter Additional Health Concerns Assessment Noted Time PHQ-9 Depression Total Score: 0 05/07/20 8:00 AM EDT documented as of this encounter Care Teams Quality Assurance Project Manager Relationship Specialty Start Date End Date Fredrick Haywood MD 112 [facility] [place] [address] (Fax) PCP - ACO Reach 03/22/23 Fredrick Haywood MD 112 [facility] [place] [address] (Fax) PCP - General Family Medicine 03/28/23 05/04/25 Fredrick Haywood MD 112 [facility] [place] [address] (Fax) PCP - General Family Medicine 05/05/25 Win Brooke MD [address] [place] [address] Referring Physician Optometry 03/02/25 Billie Cruz MD [address] [place] [address], [address] [place] [address] Referring Physician Retina Ophthalmology 03/02/25 documented as of this encounter
--- OUTSIDE RECORDS SUMMARY | 2025-06-25 10:06 | XMS_ITS | Clinical Summary ---
Author Organization [facility] Address [address] [facility], [address] [place] [address] Care Team Providers Care Nurse Sane Name Role Phone Unavailable Primary Care Provider Unavailabl e Allergies Active Allergy Reactions Criticality Noted Date Comments Hydrochlorothiazide Dizziness or Vertigo 2022 Medications ASPIRIN 81 PO Take by mouth Ac tive Cholecalciferol (VITAMIN D) 50 MCG (1999 UT) CAPS capsule Take by mouth daily Active calcium citrate (CALCITRATE) 250 MG TABS tablet Take 1 tablet by mouth 3 times daily Active Pediatric Multiple Vitamins (THERA MULTI-VITAMIN PO) Take by mouth 2 times daily Active raloxifene (EVISTA) 60 MG tablet Take 1 tablet by mouth daily Active vitamin E 1000 units capsule Take 1 capsule by mouth daily Active Coenzyme K80-Omee Oil-Vit E (CO-Q 10 OMEGA-3 FISH OIL PO) Take by mouth daily Active Magnesium 100 MG CAPS Take by mouth daily Active Potassium 99 MG TABS Take by mouth daily Active Cranberry-Vitam in C-Vitamin E (CRANBERRY PLUS VITAMIN C PO) Take by mouth daily 2 gel capsules daily Active losartan (COZAAR) 50 MG tablet Take 1 tablet by mouth daily 12/16/2022 Active rosuvastatin (CRESTOR) 10 MG tablet Take 0.5 tablets by mouth daily 12/16/2022 Active estradiol (ESTRACE VAGINAL) 0.1 MG/GM vaginal creamIndication s:Vaginal atrophy Place a pea-sized amount around urethral and 1 inch amount to vulva/vaginal ly 3 times Use finger to apply, wash hands after application. DO NOT use plastic applicator. Call office if you stop this medication. 1 each 3 04/01/2024 Active Encounters Date Type Department Care Team Description 03/25/2025 Telephone [facility] UR[facility] Part of [address] [place] [address] Yuliana Raines, FILM PROCESSING SHIFT SUPERVISOR - JUNIOR SYSTEMS ENGINEER from Last 3 Months Social History Tobacco Use Types Packs/Day Years Used Date Smoking Tobacco: Never Smokeless Tobacco: Never Tobacco Cessation:Counseling Given: Not Answered Alcohol Use Standard Drinks/Week Comments Yes 0 (1 standard drink = 0.6 oz pur e alcohol) rare Comments Unknown Sex and Gender Information Value Date Recorded Sex Assigned at Not on file Legal Sex Female 12:02 AM EST Gender Identity Not on file Sexual Orientation Not on file Last Filed Vital Signs Vital Sign Reading Time Taken Comments Blood Pressure 130/70 04/01/2024 1:13 PM EDT Pulse 85 04/01/2024 1:13 PM EDT Temperature 37 C (98.6 F) 04/01/2024 1:13 PM EDT Respiratory Rate - - Oxygen Saturation - - Inhaled Oxygen Concentration - - Weight 67.6 kg (149 lb) 04/01/2024 1:13 PM EDT Height 167.6 cm (5' 6 ) 05/22/2023 3:30 PM EDT Body Mass Index 24.05 05/22/2023 3:30 PM EDT Plan of Treatment Health Maintenance Due Date Last Done Comments Lipids 1960 Depression Screen 1962 Hepatitis C screen 1968 DTaP/Tdap/Td vaccine (1 - Tdap) 1969 Colonoscopy 12/31/1995 Colorectal Cancer Screen 12/31/1995 FIT/FOBT: Average risk 12/31/1995 Fecal-DNA (Cologuard): Average risk 12/31/1995 Sigmoidoscopy/CT colonography 12/31/1995 Annual Wellness Visit (Medicare) 09/24/2023 COVID-19 Vaccine ( season) 2024 08/03/2023, 08/09/2022, 02/01/2022, Additional history exists Breast cancer screen 07/07/2024 07/07/2022, 05/31/2020, 05/28/2019, Additional history exists Flu vaccine (#1) 05/29/2025 08/03/2023, 06/2022, 08/03/2021, Additional history exists Pneumococcal 50+ years Vaccine Completed 05/08/2017, 03/09/2016, 03/02/2016 DEXA (modify frequency per FRAX score) Completed 07/07/2022, 05/31/2020, 04/01/2018 Shingles vaccine Completed 08/30/2023, 05/19/2023 Respiratory Syncytial Virus (RSV) or age 60 yrs+ Completed 09/26/2023 Hepatitis A vaccine Aged Out No longe r eligible based on patient's age to complete this topic Hepatitis B vaccine Aged Out No longe r eligible based on patient's age to complete this topic Hib vaccine Aged Out No longer eligi ble based on patient's age to complete this topic Meningococcal (ACWY) vaccine Aged Out No longer eligible based on patient's age to complete this topic Meningococcal B vaccine Aged Out No l onger eligible based on patient's age to complete this topic Polio vaccine Aged Out No longer elig ible based on patient's age to complete this topic [place] [address] [place] [address] MEDICARE Member Subscriber Plan / Payer (Ef fective 2015-Present) Name:Kristan Barker Relation to Subscriber:Self Name:Kristan Barker Payer ID:Not on file Group ID:Not on file Type:Not on file Address: [place] [id number]
--- OUTSIDE RECORDS SUMMARY | 2025-06-25 10:06 | XMS_ITS | Encounter Summary ---
Author Organization [facility] Address [address] [place] [address] Care Team Providers Care Park Interpretive Specialist Name Role Phone Fredrick Haywood MD Unavailable [phone] Fredrick Haywood MD Primary Care Provider [phone] Win Brooke MD Unavailable [phone] Billie Cruz MD Unavailable [phone] Fredrick Haywood MD Primary Care Provider [phone] Encounter Details Date Type Department Care Team (Late st Contact Info) Description 03/27/2023 Abstract [facility] Family Medicine [address] [place] [address] Fredrick Haywood MD [address] [facility] [address] [place] [address] (Fax) Social History Tobacco Use Types Packs/Day Years Used Date Smoking Tobacco: Never Tobacco Cessation:Counseling Given: Not Answered Alcohol Use Standard Drinks/Week Comments Yes 0 (1 standard drink = 0.6 oz pure alcohol) 1 or 2 drinks, monthly or less, caffeine intake: 2-3 cups per day Comments Unknown Sex and Gender Information Value Date Recorded Sex Assigned at Not on file Legal Sex Female 6:54 PM EDT Gender Identity Female 01/10/2023 6:54 PM EDT Sexual Orientation Not on file COVID-19 Exposure Response Date Recorded In the last 10 days, have yo u been in contact with someone who was confirmed or suspected to have Coronavirus/COVID-19? No / Unsure 03/28/2023 8:46 AM EDT documented as of this encounter Plan of Treatment Upcoming Encounters Date Type Department Care Team (Late st Contact Info) Description 09/08/2025 8:30 AM EST Office Visit [facility] [address] [address] [place] [address] Fredrick Haywood MD [address] [address] (Fax) 05/06/2026 2:00 PM EDT Office Visit [facility] Family Medicine [address] [place] [address] Fredrick Haywood MD [address] [place] [address] (Fax) documented as of this encounter Visit Diagnoses Not on filedocumented in this encounter Care Teams Park Interpretive Specialist Relationship Specialty Start Date End Date Fredrick Haywood MD [address] [place] [address] (Fax) PCP - ACO Reach 03/22/23 Fredrick Haywood MD [address] [place] [address] (Fax) PCP - General Family Medicine 03/28/23 05/04/25 Fredrick Haywood MD [address] [place] [address] PCP - General Family Medicine 05/05/25 Win Brooke MD [address] [place] [id number] Referring Physician Optometry 03/02/25 Billie Cruz MD [address] [place] [address], [address] [phone] Referring Physician Retina Ophthalmology 03/02/25 documented as of this encounter
--- OUTSIDE RECORDS SUMMARY | 2025-06-25 10:06 | XMS_ITS | Encounter Summary ---
Author Organization [facility] Address [address] [place] [address] Care Team Providers Care Tool And Die Maker/Designer Name Role Phone Fredrick Haywood MD Unavailable [phone] Fredrick Haywood MD Primary Care Provider [phone] Win Brooke MD Unavailable [phone] Billie Cruz MD Unavailable [phone] Fredrick Haywood MD Primary Care Provider [phone] Encounter Details Date Type Department Care Team (Late st Contact Info) Description 06/28/2023 Orders Only [facility] Family Medicine [address] [place] [address] Fredrick Haywood MD [address] [facility] [address] [place] [address] (Fax) Osteopenia of spine (Primary Dx) Social History Tobacco Use Types Packs/Day Years [...] 04/30/2023 How often do you attend chur or episcopal services? More than 4 times per year 04/30/2023 Do you belong to any clubs o r organizations such as alevism groups, unions, fraternal or athletic groups, or [...] Recorded Patient Health Questionnaire-2 Score 0 05/07/2023 [facility] [place] of Occupat ional Health - Occupational Stress [...] place to sleep or slept in a fdc (including now)? No 04/30/2023 Comments No Sex and Gender Information Value Date Recorded Sex Assigned at Not on file Legal Sex Female 6:54 PM EDT Gender Identity Female 01/10/2023 6:54 PM EDT Sexual Orientation Not on file documented as of this encounter Plan of Treatment Upcoming Encounters Date Type Department Care Team (Late st Contact Info) Description 09/08/2025 8:30 AM EST Office Visit [facility] [address] [address] [place] [address] Fredrick Haywood MD [address] [address] [place] [address] (Fax) 05/06/2026 2:00 PM EDT Office Visit [facility] Family [facility] [address] [address] [place] [address] Fredrick Haywood MD [address] [place] [address] (Fax) documented as of this encounter Visit Diagnoses Diagnosis Osteopenia of spine- Primary documented in this encounter Additional Health Concerns Assessment Noted Time PHQ-9 Depression Total Score: 0 05/07/20 23 8:00 AM EDT documented as of this encounter Care Teams Tool And Die Maker/Designer Relationship Specialty Start Date End Date Fredrick Haywood MD [address] [address] (Fax) PCP - ACO Reach 03/22/23 Fredrick Haywood MD [address] [address] (Fax) PCP - General Family Medicine 03/28/23 05/04/25 Fredrick Haywood MD [address] [address] (Fax) PCP - General Family Medicine 05/05/25 Win Brooke MD [address] [place] [address] Referring Physician Optometry 03/02/25 Billie Cruz MD [address] [place] [address], [address] [place], [place] [phone] Referring Physician Retina Ophthalmology 03/02/25 documented as of this encounter
--- OUTSIDE RECORDS SUMMARY | 2025-06-25 10:06 | XMS_ITS | Encounter Summary ---
Author Organization [facility] Address [address] [facility] [place] [place] [address] Care Team Providers Care Animal Nutritionist Name Role Phone Fredrick Haywood MD Unavailable [phone] Fredrick Haywood MD Primary Care Provider [phone] Win Brooke MD Unavailable [phone] Billie Cruz MD Unavailable [phone] Fredrick Haywood MD Primary Care Provider [phone] Encounter Details Date Type Department Care Team (Late st Contact Info) Description 05/29/2023 Orders Only [facility] Family Medicine [address] [place] [address] Fredrick Haywood MD 112 [facility] [address] [place] [address] (Fax) Social History Tobacco Use Types Packs/Day [...] often do you attend chur ch or restorationism services? More than 4 times per year 04/30/2023 Do you belong to any clubs o r organizations such as jain groups, unions, fraternal or athletic groups, or [...] Recorded Patient Health Questionnaire-2 Score 0 05/07/2023 [facility] of Occupat ecu health[facility] - Occupational Stress Questionnaire Answer Date Recorded [...] place to sleep or slept in a prison (including now)? No 04/30/2023 Comments No Sex [...] 09/08/2025 8:30 AM EST Office Visit [facility] 112 [facility] [place] [address] Fredrick Haywood MD 112 [facility] [place] [address] (Fax) 05/06/2026 2:00 PM EDT Office Visit [facility] 112 [facility] [place] [address] Fredrick Haywood MD 112 [facility] [place] [address] (Fax) documented as of this encounter Procedures Procedure Name Priority Date/Time Associated Diagnosis Comments DEXA BONE DENSITY Routine 05/25/2023 11:54 AM EDT documented in this encounter Results * DEXA bone density (05/25/2023 11:54 AM EDT) Anatomical Region Laterality Modality Body Radiographic Geetha ging Fredrick Haywood MD IMG DXA PROCEDURES Final Res ult documented in this encounter Visit Diagnoses Not on filedocumented in this encounter Additional Health Concerns Assessment Noted Time PHQ-9 Depression Total Score: 0 05/07/20 8:00 AM EDT documented as of this encounter Care Teams Animal Nutritionist Relationship Specialty Start Date End Date Fredrick Haywood MD 112 [facility] [place] [address] (Fax) PCP - ACO Reach 03/22/23 Fredrick Haywood MD 112 [facility] [place] [address] (Fax) PCP - General Family Medicine 03/28/23 05/04/25 Fredrick Haywood MD 112 [facility] [place] [address] PCP - General Family Medicine 05/05/25 Win Brooke MD [address] [place] [address] Referring Physician Optometry 03/02/25 Billie Cruz MD [address] [place] [address], [address] [phone] Referring Physician Retina Ophthalmology 03/02/25 documented as of this encounter
--- OUTSIDE RECORDS SUMMARY | 2025-06-25 10:26 | XMS_ITS | CCD ---
Author Organization [facility] ion [facility] Care Team Providers Care Histopathologist Name Role Phone PIPER CARLOS Admitting Unavailable PIPER CARLOS Attending Unavailable MARIALUISA, DR WILVER Ga Consulting Unavailable HEMEYER, DR PAGE Primary Care Unavailable PIPER CARLOS Consulting Unavailable KARLA MERLOS Consulting Unavailable HEMEYER, DR PAGE Admitting Unavailable HEMEYER, DR PAGE Attending Unavailable HEMEYER, DR PAGE Consulting Unavailable HEMEYER, DR PAGE Primary Care Unavailable ZIEBER, DR WILVER Ga Consulting Unavailable JUSTUS, DR PAGE Admitting Unavailable HEMEYER, DR PAEG Attending Unavailable HEMEYER, DR PAGE Consulting Unavailable HEMEYER, DR PAGE Primary Care Unavailable SUSAN MARTINEZ Admitting Unavailable SUSAN MARTINEZ Attending Unavailable SUSAN MARTINEZ Consulting Unavailable JUSTUS, DR PAGE Primary Care Unavailable STEVE QUINTERO Consulting Unavailable Greg Pelayo Attending Unavailable Greg Pelayo Admitting Unavailable Fredrick Jerome Primary Care Unavailable Fredrick Jerome MD Unavailable Fredrick Jerome MD Primary Care Provider Fredrick Jerome MD Unavailable [phone] Fredrick Jerome MD Primary Care Provider [phone] Win Brooke MD Unavailable Billie Cruz MD Unavailable FREDRICK JEROME Attending Unavailable FREDRICK JEROME Attending Unavailable FREDRICK JEROME Attending Unavailable Fredrick Jerome MD Primary Care Provider Allergies Allergy Classification Reported Allergen(s) Allergy Type Date of Onset Reaction(s) Facility (1 source) Sulfonamides (Antibiotic) Drug allergy (disorder) [facility] (10 sources) hydroCHLOROthiazide Drug Allergy 03-02-20 [facility] Medications Current Medications Medication Drug Class(es) Dates Sig (Normalized) Sig (Original) ascorbic acid 1000 mg oral tablet (10 sources) Vitamin C take 1 tablet by mouth in the morning Ascorbic Acid (vitamin C) 1000 MG tablet Take 1,000 mg by mouth in the morning. Active aspirin 81 mg delayed release oral tablet (10 sources) Platelet Aggregation Inhibitor, Nonsteroidal Anti-inflammatory Drug take 1 tablet by mouth in the morning aspirin 81 MG EC tablet Take 81 mg by mouth in the morning. Active calcium citrate 1040 mg oral tablet (10 sources) take 1 tablet by mouth in the morning calcium citrate 1040 MG tablet Take 1 tablet by mouth in the morning and 1 tablet before bedtime. Active cholecalciferol 0.05 mg oral tablet (10 sources) Vitamin D take 1 tablet by mouth once daily cholecalciferol (Vitamin D-3) 50 MCG (1999) tablet 1 tablet Orally Once a day - during the winter then 2,000units in spring Active Cranberry-Vitamin C-Vitamin E (CRANBERRY PLUS VITAMIN C PO) (10 sources) Cranberry-Vitami n C-Vitamin E (CRANBERRY PLUS VITAMIN C PO) Cranberry Plus Vitamin C Active estradiol 0.1 mg/ml vaginal cream (11 sources) Estrogen Start: 05-29-2025 estradiol (Estrace) 0.1 MG/GM vaginal cream Indications: Hx of hysterectomy, total , Symptomatic states associated with artificial menopause Insert 1 g into the vagina 3 (three) times a week 42.5 g 11 05/29/2025 Active Start: 03-22-2023 End: 05-28-2025 estradiol (Estrace) 0.1 MG/G M vaginal cream Insert 1 g into the vagina 3 (three) times a week. 03/22/2023 05/28/2025 Discontinued (Reorder) krill oil 1000 mg oral capsule (10 sources) take 1 capsule by mouth in the morning Krill Oil 1000 MG capsule Take 1 capsule by mouth in the morning. Active Magnesium (10 sources) magnesium 100 MG tablet 1 (one) time each day at the same time. Active 24 hr mirabegron 50 mg extended release oral tablet (10 sources) beta3-Adrenergic Agonist Start: take 1 tablet by mouth in the morning, then take 1 tablet by mouth every twenty-four hours mirabegron ER (Myrbetriq) 50 MG 24 hr tablet Take 50 mg by mouth in the morning. 03/22/2023 Active Pediatric Multiple Vitamins (THERA MULTI-VITAMIN PO) (10 sources) Pediatric Multip le Vitamins (THERA MULTI-VITAMIN PO) 1 twice a day Orally Active potassium 99 mg extended release oral tablet (10 sources) take 1 tablet by mouth in the morning Potassium 99 MG tablet Take 1 tablet by mouth in the morning. Active raloxifene hydrochloride 60 mg oral tablet (14 sources) Estrogen Agonist/Antagonist Start: End: 5 take 1 tablet by mouth once daily raloxifene (Evista) 60 MG tablet Indications: Osteopenia of spine Take 1 tablet (60 mg) by mouth Daily 90 tablet 1 03/17/2025 09/13/2025 Active rosuvastatin calcium 10 mg oral tablet (14 sources) HMG-CoA Reductase Inhibitor Start: End: 5 take 1 tablet by mouth in the evening rosuvastatin (Crestor) 10 MG tablet Indications: Mixed dyslipidemia Take 1 tablet (10 mg) by mouth in the evening 90 tablet 1 03/17/2025 09/13/2025 Active dl-alpha tocopheryl acetate 100 unt oral capsule (10 sources) take 1 capsule by mouth in the morning alpha tocopherol (Vitamin E) 100 units capsule Take 100 Units by mouth in the morning. Active Problems Active Problems Problem Classification Problem Date Documented Date Episodic/Chronic Cardiac dysrhythmias (10 sources) Multiple premature ventricular complexes; Translations: [Ventricular premature depolarization] Onset: 03-22-2023 03-22-2023 Chronic Chronic kidney disease (14 sources) Chronic kidney disease stage 2; Translations: [Chronic kidney disease, stage 2 (mild)] Onset: 03-22-2023 03-22-2023 Chronic Complications of surgical procedures or medical care (11 sources) Menopausal symptom; Translations: [Symptomatic postprocedural ovarian failure] Onset: 03-22-2023 03-22-2023 Chronic Conditions associated with dizziness or vertigo (4 sources) Dizziness and giddiness; Translations: [DIZZINESS AND GIDDINESS] Onset: 08-27-2022 Episodic Disorders of lipid metabolism (14 sources) Dyslipidemia; Translations: [Mixed hyperlipidemia] Onset: 03-22-2023 3 Chronic Essential hypertension (14 sources) Essential hypertension; Translations: [Essential (primary) hypertension] Onset: 03-22-2023 03-22-2023 Chronic Genitourinary symptoms and ill-defined conditions (10 sources) Female stress incontinence; Translations: [Stress incontinence (female) (male)] Onset: 03-22-2023 03-22-2023 Chronic Hypertension with complications and secondary hypertension (14 sources) Hypertensive renal disease; Translations: [Hypertensive chronic kidney disease with stage 1 through stage 4 chronic kidney disease, or unspecified chronic kidney disease] Onset: 03-22-2023 03-22-2023 Chronic Menopausal disorders (1 source) Menopausal and female climacteric states; Translations: [MENOPAUSAL FE CLIMACTERIC STATES] Onset: 07-14-2022 Chronic Nutritional deficiencies (10 sources) Vitamin D deficiency; Translations: [Vitamin D deficiency, unspecified] Onset: 03-22-2023 03-22-2023 Chronic Other acquired deformities (10 sources) Equinus contracture of the ankle; Translations: [Contracture, right ankle] Onset: 03-22-2023 03-22-2023 Chronic Other aftercare (1 source) [facility] (current) use of aspirin; Translations: [SNF CURRENT USE OF ASPIRIN] Onset: 08-29-2022 Episodic Other aftercare (1 source) Other intermediate (current) drug therapy; Translations: [OT SNF CURRENT DRUG THERAPY] Onset: 08-29-2022 Episodic Other bone disease and musculoskeletal deformities (10 sources) Posterior calcaneal exostosis; Translations: [Juvenile osteochondrosis of tarsus, right ankle] Onset: 03-22-2023 03-22-2023 Chronic Other bone disease and musculoskeletal deformities (1 source) Other specified disorders of bone density and structure, other site; Translations: [OTH D/O BONE DEN STRUCT OTH SITE] Onset: 07-14-2022 Episodic Other circulatory disease (1 source) Elevated blood-pressure reading, without diagnosis of hypertension; Translations: [ELEVATED BP READING W/O DX HTN] Onset: 08-29-2022 Episodic Other screening for suspected conditions (not mental disorders or infectious disease) (7 sources) Encounter for screening mammogram for malignant neoplasm of breast; Translations: [Encounter for screening for osteoporosis] Onset: 07-07-2022 Episodic Residual codes; unclassified (2 sources) Active advance directive (copy within chart) ; Translations: [Other specified health status] 04-28-2025 Episodic Residual codes; unclassified (5 sources) Cardiovascular event risk; Translations: [Other specified personal risk factors, not elsewhere classified] Onset: 05-12-2025 05-12-2025 Episodic Screening and history of mental health and substance abuse codes (2 sources) Patient encounter status; Translations: [Encounter for screening examination for other mental health and behavioral disorders] 04-28-2025 Episodic Unclassified (3 sources) CONTACT W/AND (SUSP) [...] encounter; Translations: [FALL SAME LVL SLIP STRK OTH OBJ INT] Onset: 04-17-2022 Episodic Genitourinary symptoms and ill-defined conditions (14 sources) Microalbuminuria; Translations: [Proteinuria, unspecified] Onset: 03-22-2023 03-22-2023 Episodic Heart valve disorders (10 sources) Heart murmur; Translations: [Cardiac murmur, unspecified] Onset: 03-22-2023 03-22-2023 Episodic Mood disorders (10 sources) Mood disorders Onset: 05-07-2023 05-07-2023 Other bone disease and musculoskeletal deformities (10 sources) Disorder of bone; Translations: [Other specified disorders of bone density and structure, right thigh] Onset: 03-22-2023 03-22-2023 Episodic Other bone disease and musculoskeletal deformities (14 sources) Osteopenia; Translations: [Other specified disorders of bone density and structure, other site] Onset: 03-22-2023 03-22-2023 Episodic Other diseases of bladder and urethra (10 sources) Spasm of bladder; Translations: [Other specified disorders of bladder] Onset: 03-22-2023 Resolved: 05-05-2025 03-22-2023 Chronic Other nervous system disorders (10 sources) White matter disease; Translations: [White matter disease, unspecified] Onset: 03-22-2023 03-22-2023 Episodic Other nutritional; endocrine; and metabolic disorders (10 sources) Body mass index 25-29 - overweight; Translations: [Overweight] Onset: 03-22-2023 Resolved: 03-18-2024 03-18-2024 Episodic Residual codes; unclassified (10 sources) Body mass index 20-24 - normal; Translations: [Body mass index (BMI) 23.0-23.9, adult] Onset: 10-11-2023 10-11-2023 Episodic Superficial injury; contusion (5 sources) Contusion of unspecified part of head, initial encounter; Translations: [Abrasion, left knee, initial encounter] Onset: 04-11-2022 Episodic Thyroid disorders (10 sources) Sick-euthyroid syndrome; Translations: [Sick-euthyroid syndrome] Onset: 03-22-2023 03-22-2023 Episodic Unclassified (1 source) CONTACT W/AND (SUSP) EXPOS COVID-19; Translations: [CONTACT W/AND (SUSP) EXPOS COVID-19] Onset: 10-27-2021 Results Test Name Value Interpretation Reference Range Facility COMPREHENSIVE METABOLIC PANE [facility] 03-12-2025 Albumin [Mass/Vol] 4.0 g/dL Normal 3.6-5.1 [facility] Comment on above: Performed By: #### 1 0231, 9990 #### [facility] [address], [address] [place] [id number] Electric Meter Technician: Jerel Green MD Albumin/Globulin [Mass ratio] 1.6 {ratio} Normal 1.0-2.5 [facility] Comment on above: Performed By: #### 1 0231, 5540 #### [facility] [address], [address] [place] [id number] Electric Meter Technician: Jerel Green MD ALP [Catalytic activity/Vol] 43 U/L Normal 37-153 [facility] Comment on above: Performed By: #### 1 023, 7600 #### [facility] [address], [address] [place] [address] Electric Meter Technician: Jerel Green MD ALT [Catalytic activity/Vol] 11 U/L Normal 6-29 [facility] Comment on above: Performed By: #### 1 023, 7600 #### [facility] of [address], [address] [place] [address] Electric Meter Technician: Jerel Green MD AST [Catalytic activity/Vol] 17 U/L Normal 10-35 [facility] Comment on above: Performed By: #### 1 023, 7600 #### [facility] [place] [address] Electric Meter Technician: Jerel Green MD Bilirubin [Mass/Vol] 0.5 mg/dL Normal 0.2-1.2 [facility] Comment on above: Performed By: #### 1 230, 0 #### [facility] [place] [address] Electric Meter Technician: Jerel Green MD BUN/CREATININE RATIO SEE NOTE: Normal 6-22 [facility] Comment on above: Result Comment: Not Reported: BUN and Creatinine are within reference range. Performed By: #### 1 230, 0 #### [facility] [address], [address] [place] [address] Electric Meter Technician: Jerel Green MD Calcium [Mass/Vol] 9.3 mg/dL Normal 8.6-10.4 [facility] Comment on above: Performed By: #### 1 023, 7600 #### [facility] [place] [address] Electric Meter Technician: Jerel Green MD Chloride [Moles/Vol] 106 mmol/L Normal 98-110 [facility] Comment on above: Performed By: #### 1 023, 7600 #### [facility] of [address], [address] [place] [address] Electric Meter Technician: Jerel Green MD CO2 [Moles/Vol] 30 mmol/L Normal 20-32 [facility] Comment on above: Performed By: #### 1 0231, 7600 #### [facility] of [address], [address] [place] [address] Electric Meter Technician: Jerel Green MD Creatinine [Mass/Vol] 0.93 mg/dL Normal 0.60-1.00 [facility] Comment on above: Performed By: #### 1 0231, 7600 #### [facility] of [address], [address] [place] [address] Electric Meter Technician: Jerel Green MD GFR/1.73 sq M.predicted among non-blacks MDRD (S/P/Bld) [Vol rate/Area] 64 mL/min/{1.73_m2} Normal > OR = 60 [facility] Comment on above: Performed By: #### 1 0231, 7600 #### [facility] of [address], [address] [place] [address] Electric Meter Technician: Jerel Green MD Globulin (S) [Mass/Vol] 2.5 g/dL Normal 1.9-3.7 [facility] Comment on above: Performed By: #### 1 0231, 7600 #### [facility] of [address], [address] [place] [address] Electric Meter Technician: Jerel Green MD Glucose [Mass/Vol] 85 mg/dL Normal 65-99 [facility] Comment on above: Result Comment: Fasting reference interval Performed By: #### 1 0231, 7600 #### [facility] of [address], [address] [place] [address] Electric Meter Technician: Jerel Green MD Potassium [Moles/Vol] 4.0 mmol/L Normal 3.5-5.3 [facility] Comment on above: Performed By: #### 1 0231, 7600 #### [facility] of [address], [address] [place] [address] Electric Meter Technician: Jerel Green MD Protein [Mass/Vol] 6.5 g/dL Normal 6.1-8.1 [facility] Comment on above: Performed By: #### 1 0231, 7600 #### [facility] [place] [address] Electric Meter Technician: Jerel Green MD Sodium [Moles/Vol] 141 mmol/L Normal 135-146 [facility] Comment on above: Performed By: #### 1 0231, 7600 #### [facility] [place] [address] Electric Meter Technician: Jerel Green MD Urea nitrogen [Mass/Vol] 22 mg/dL Normal 7-25 [facility] Comment on above: Performed By: #### 1 0231, 7600 #### [facility] [place] [address] Electric Meter Technician: Jerel Green MD LIPID PANEL, [address] Cholesterol [Mass/Vol] 241 mg/dL High <200 [facility] Comment on above: Order Comment: FASTI NG:YES FASTING: YES Performed By: #### 1 0231, 7600 #### [facility] of [place] [address] Electric Meter Technician: Jerel Green MD Cholesterol in HDL [Mass/Vol] 80 mg/dL Normal > OR = 50 [facility] Comment on above: Order Comment: FASTI NG:YES FASTING: YES Performed By: #### 1 0231, 7600 #### [facility] of [place] [address] Electric Meter Technician: Jerel Green MD Cholesterol in LDL [Mass/Vol] 139 mg/dL High [facility] Comment on above: Order Comment: FASTI NG:YES FASTING: YES Result Comment: Refe rence range: <100 Desirable range <100 mg/dL for primary prevention; <70 mg/dL for patients with CHD or diabetic patients with > or = 2 CHD risk factors. LDL-C is now calculated using the Arjun-Murillo calculation, which is a validated novel method providing better accuracy than the Friedewald equation in the estimation of LDL-C. Arjun SS et al. TYE. 2013;310(19): 9383-8168 (http://education.[employer]/faq/YEB211) Performed By: #### 1 230, 0 #### [facility] [address], [address] [place] [address] Electric Meter Technician: Jerel Green MD Cholesterol.total/C holesterol in HDL [Mass ratio] 3.0 {ratio} Normal <5.0 [facility] Comment on above: Order Comment: FASTI NG:YES FASTING: YES Performed By: #### 1 023, 7599 #### [facility] [place] [address] Electric Meter Technician: Jerel Green MD NON HDL CHOLESTEROL 161 mg/dL (calc) High <130 [facility] Comment on above: Order Comment: FASTI NG:YES FASTING: YES Result Comment: For patients with diabetes plus 1 major ASCVD risk factor, treating to a non-HDL-C goal of <100 mg/dL (LDL-C of <70 mg/dL) is considered a therapeutic option. Performed By: #### 1 023, 0 #### [facility] [place] [address] Electric Meter Technician: Jerel Green MD Triglyceride [Mass/Vol] 103 mg/dL Normal <150 [facility] Comment on above: Order Comment: FASTI NG:YES FASTING: YES Performed By: #### 1 023, 0 #### [facility] [place] [address] Electric Meter Technician: Jerel Green MD CBC AUTO DIFFon 08-27-2022 BASO # 0.0 103/ul Normal 0.0-0.1 [facility] Comment on above: Performed By: #### C BC #### [facility] [address] [place] [address] [address] Daniel Hester Basophils/100 WBC (Bld) 0.4 % Normal 0.2-2.0 [facility] Comment on above: Performed By: #### C BC #### [facility] [address] [place] [address] Dr. Daniel Hester EO # 0.2 103/ul Normal 0.0-0.7 [facility] Comment on above: Performed By: #### C BC #### [facility] [address] [place] [address] Dr. Daniel Hester Eosinophils/100 WBC (Bld) 2.7 % Normal 0.9-7.0 [facility] Comment on above: Performed By: #### C BC #### [facility] [address] [place] [address] Dr. Daniel Hester Erythrocyte distribution width (RBC) [Ratio] 13.3 % Normal 11.0-15.0 [facility] Comment on above: Performed By: #### C BC #### [facility] [address] [place] [address] Dr. Daniel Hester Hematocrit (Bld) [Volume fraction] 38.8 % Normal 36.0-48.0 [facility] Comment on above: Performed By: #### C BC #### [facility] [address] [place] [address] Dr. Daniel Hester Hemoglobin (Bld) [Mass/Vol] 13.0 g/dL Normal 12.0-16.0 [facility] Comment on above: Performed By: #### C BC #### [facility] [address] [place] [address] Dr. Daniel Hester IG # 0.01 10e3/ul Normal 0.00-0.03 [facility] Comment on above: Performed By: #### C BC #### [facility] [address] [place] [address] Dr. Daniel Hester IG % 0.1 % Normal 0.0-0.5 [facility] Comment on above: Performed By: #### C BC #### [facility] [address] [place] [address] Dr. Daniel Hester LYMPH # 2.5 103/ul Normal 1.2-3.8 [facility] Comment on above: Performed By: #### C BC #### [facility] [address] [place] [address] Dr. Daniel Hester Lymphocytes/100 WBC (Bld) 36.6 % Normal 20.5-60.0 [facility] Comment on above: Performed By: #### C BC #### [facility] [address] [place] [address] Dr. Daniel Hester MANUAL DIFF REQ NO Normal [facility] Comment on above: Performed By: #### C BC #### [facility] [address] [place] [address] Dr. Daniel Hester MCH (RBC) [Entitic mass] 31.7 pg Normal 26.7-34.0 [facility] Comment on above: Performed By: #### C BC #### [facility] [address] [place] [address] Dr. Daniel Hester MCHC (RBC) [Mass/Vol] 33.5 g/dL Normal 29.9-35.2 [facility] Comment on above: Performed By: #### C BC #### [facility] [address] [place] [address] Dr. Daniel Hester MCV (RBC) [Entitic vol] 94.6 fL Normal 81.0-99.0 [facility] Comment on above: Performed By: #### C BC #### [facility] [address] [place] [address] Dr. Daniel Hester MONO # 0.4 103/ul Normal 0.3-0.8 [facility] Comment on above: Performed By: #### C BC #### [facility] [address] [place] [address] Dr. Daniel Hester Monocytes/100 WBC (Bld) 6.4 % Normal 1.7-12.0 [facility] Comment on above: Performed By: #### C BC #### [facility] [address] [place] [address] Dr. Daniel Hester NEUT # 3.6 103/ul Normal 1.4-6.5 [facility] Comment on above: Performed By: #### C BC #### [facility] [address] [place] [address] [address] Daniel Hester Neutrophils/100 WBC (Bld) 53.8 % Normal 43.0-75.0 [facility] Comment on above: Performed By: #### C BC #### [facility] [address] [place] [address] [address] Daniel Hester Platelet mean volume (Bld) [Entitic vol] 10.9 fL Normal 9.5-13.5 [facility] Comment on above: Performed By: #### C BC #### [facility] [address] [place] [address] [address] Daniel Hester PLT 217 103/ul Normal 150-450 [facility] Comment on above: Performed By: #### C BC #### [facility] [address] [place] [address] Dr. Daniel Hester RBC 4.10 106/ul Critically low 4.20-5.40 [facility] Comment on above: Performed By: #### C BC #### [facility] [address] [place] [address] Dr. Daniel Hester WBC 6.7 103/ul Normal 4.0-11.0 [facility] Comment on above: Performed By: #### C BC #### [facility] [address] [place] [address] HEAD WO CONon [...] STEVE QUINTERO Date: 2022-08-27 14:38 Normal [facility] PROF CHEM 8 (BAS METB)on Anion gap [Moles/Vol] 8.7 mmol/L Normal [facility] Comment on above: Performed By: #### B MP, HSTROPN #### [facility] [address] [place] [address] Dr. Daniel Hester Calcium [Mass/Vol] 9.7 mg/dL Normal 8.5-10.1 [facility] Comment on above: Performed By: #### B HARESH, HSTROPN #### [facility] [address] [place] [address] Dr. Daniel Hester Chloride [Moles/Vol] 104 mmol/L Normal 98-107 [facility] Comment on above: Performed By: #### B HARESH, HSTROPN #### [facility] [address] [place] [address] [address] Daniel Hester CO2 [Moles/Vol] 29.6 mmol/L Normal 21.0-32.0 [facility] Comment on above: Performed By: #### B HARESH, HSTROPN #### [facility] [address] [place] [address] Dr. Daniel Hester Creatinine [Mass/Vol] 1.00 mg/dL Normal 0.55-1.02 [facility] Comment on above: Performed By: #### B MP, HSTROPN #### [facility] [address] [address] [address] Daniel Hester EGFR-AF CITIZEN [place] >60 Normal >=60 [facility] Comment on above: Performed By: #### B HARESH, HSTROPN #### [facility] [address] [place] [address] [address] Daniel Hester EGFR-NON AF CITIZEN OF [place] 55 mL/min/1.73m2 Critically low >=60 [facility] Comment on above: Performed By: #### B MP, HSTROPN #### [facility] [address] [address] [address] Daniel Hester Glucose [Mass/Vol] 98 mg/dL Normal 74-106 [facility] Comment on above: Performed By: #### B MP, HSTROPN #### [facility] [address] [place] [address] Dr. Daniel Hester Potassium [Moles/Vol] 3.3 mmol/L Critically low 3.5-5.1 [facility] Comment on above: Performed By: #### B MP, HSTROPN #### [facility] [address] [place] [address] Dr. Daniel Hester Sodium [Moles/Vol] 139 mmol/L Normal 136-145 [facility] Comment on above: Performed By: #### B MP, HSTROPN #### [facility] [address] [place] [address] Dr. Daniel Hester Urea nitrogen [Mass/Vol] 15.0 mg/dL Normal 7.0-18.0 [facility] Comment on above: Performed By: #### B MP, HSTROPN #### [facility] [address] [place] [address] Dr. Daneil Hester Urea nitrogen/Creatinine [Mass ratio] 15.0 mg/mg Normal [facility] Comment on above: Performed By: #### B MP, HSTROPN #### [facility] [address] [place] [address] Dr. Daniel Hester TROPONIN, HIGH SENSITIVITYon 08-27-2022 HSTROP 21.7 pg/mL Normal 4.0-51.3 [facility] Comment on above: Result Comment: CUT- OFF POINTS HAVE BEEN ESTABLISHED BASED ON THE FOURTH UNIVERSAL DEFINITIONS OF MYOCARDIAL INFARCTION. THE UPPER REFERENCE LIMIT (URL) OF TROPONIN, DEFINED THE 99TH PERCENTILE OF cTnI DISTRIBUTION IN A REFERENCE POPULATION, HAS BEEN CONFIRMED THE DECISION THRESHOLD FOR IA DIAGNOSIS. Performed By: #### B MP, HSTROPN #### [facility] [address] [place] [address] Dr. Daniel Hester MG MAMM SCREEN 3D RADHA CADon 07-07-2022 MG MAMM SCREEN 3D RADHA CAD Patient: KRISTAN BARKER Exam Date: 07/07/2022 : 1950 Gender:F Ordering : DR FREDRICK JEROME . Admission #: [id number] Family : Order #: [id number] CLICK HERE TO VIEW EXAM RADIOLOGY REPORT [...] Treatments None Family Cancers None LOCATION: [facility] BREAST COMPOSITION: Scattered areas fibroglandular density. [...] Dejesus M.D. on 07/07/2022 at 12:35 Normal [facility] XR DEXA BONE DENSITYon 07-07 XR DEXA [...] by: WILVER DEJESUS Date: 2022-07-07 11:51 Normal [facility] CT HEAD WO CONon 04-11-2022 CT HEAD [...] by: WILVER DEJESUS Date: 2022-04-11 11:00 Normal [facility] XR KNEE LT 4V or >on 022 [...] KARLA MERLOS Date: 2022-04-11 09:45 Normal [facility] Covid-19 PCR (CVDTB)on 09-30 SARS-CoV-2 (COVID-19) RNA RAMIRO+probe Ql (Unsp spec) Not detected Normal NOT DETECTED [facility] Comment on above: Result Comment: This test is not yet approved or cleared by the [place] FDA. When there are no FDA-approved or cleared tests available, and other criteria are met, FDA can make tests available under an emergency access mechanism called an Emergency Use Authorization (EUA). The EUA for this test is supported by the Register Of Deeds of Health and Human Service's (HHS's) declaration [...] consistent with SARS-CoV-2. Performed By: #### C [facility] #### [facility] [address] [place] [address] Dr. Daniel Hester Vital Signs Date Time Vital Sign Value Performing Clinician Conor gagnon 05-05-2025 14:33-0400 Body height 167.6 cm Fredrick Jerome MD Work Phone: [facility] 05-05-2025 14:33-0400 Body mass index (BMI) [Ratio] 24.05 kg/m2 Fredrick Jerome MD Work Phone: [facility] 05-05-2025 14:33-0400 Body weight 67.59 kg Fredrick Jerome MD Work Phone: [facility] 05-05-2025 14:33-0400 Diastolic blood pressure 76 mm[Hg] Fredrick Jerome MD Work Phone: [facility] 05-05-2025 14:33-0400 Heart rate 59 /min Fredrick Jerome MD Work Phone: [facility] 05-05-2025 14:33-0400 SaO2% (BldA) [Mass fraction] 96 % Fredrick Jerome MD Work Phone: [facility] 05-05-2025 14:33-0400 Systolic blood pressure 126 mm[Hg] Fredrick Jerome MD Work Phone: [facility] 03-17-2025 08:03-0400 Body mass index (BMI) [Ratio] 23.4 kg/m2 Fredrick Jerome MD Work Phone: [facility] 03-17-2025 08:03-0400 Body weight 65.77 kg Fredrick Jerome MD Work Phone: [facility] 03-17-2025 08:03-0400 Diastolic blood pressure 72 mm[Hg] Fredrick Jerome MD Work Phone: [facility] 03-17-2025 08:03-0400 Heart rate 70 /min Fredrick Jerome MD Work Phone: [facility] 03-17-2025 08:03-0400 SaO2% (BldA) [Mass fraction] 95 % Fredrick Jerome MD Work Phone: [facility] 03-17-2025 08:03-0400 Systolic blood pressure 126 mm[Hg] Fredrick Jerome MD Work Phone: [facility] 09-16-2024 09:00-0500 Body height 167.6 cm Fredrick Jerome MD Work Phone: [facility] 09-16-2024 09:00-0500 Body mass index (BMI) [Ratio] 24.45 kg/m2 Fredrick Jerome MD Work Phone: [facility] 09-16-2024 09:00-0500 Body weight 68.72 kg Fredrick Jerome MD Work Phone: [facility] 09-16-2024 09:00-0500 Diastolic blood pressure 70 mm[Hg] Fredrick Jerome MD Work Phone: [facility] 09-16-2024 09:00-0500 Heart rate 67 /min Fredrick Jerome MD Work Phone: [facility] 09-16-2024 09:00-0500 SaO2% (BldA) [Mass fraction] 97 % Fredrick Jerome MD Work Phone: [facility] 09-16-2024 09:00-0500 Systolic blood pressure 126 mm[Hg] Fredrick Jerome MD Work Phone: [facility] Encounters Encounter Date Encounter Type Care Provider Facility Start: 05-28-2025 End: 05-28-2025 Telephone encounter January Kaylynn SCOTT [facility] Comment on above: Care Coordination Start: 05-05-2025 End: 05-05-2025 ambulatory FREDRICK JEROME Not Available Start: 05-05-2025 End: 05-05-2025 Bamboo flowsheet Fredrick Jerome MD Work Phone: [facility] Start: 05-05-2025 End: 05-05-2025 Bamboo flowsheet Fredrick Jerome MD Work Phone: [facility] Start: 05-05-2025 End: 05-05-2025 Patient encounter procedure Fredrick Jerome MD Work Phone: [facility] Comment on above: Encounter for Medica re annual wellness exam (Primary Dx); Advance directive in chart; Encounter for screening for other disorder; Screening for alcohol problem; Hx of hysterectomy, total; Cardiovascular event risk Start: 03-17-2025 End: 03-17-2025 Bamboo flowsheet Fredrick Jerome MD Work Phone: [facility] Start: 03-17-2025 End: 03-17-2025 Bamboo flowsheet Fredrick Jerome MD Work Phone: [facility] Start: 03-17-2025 End: 03-17-2025 Office outpatient visit 25 minutes Fredrick Jerome MD Work Phone: [facility] Comment on above: Essential hypertensi on (CMS/HCC); Hypertensive nephropathy (CMS/HCC); Stage 2 chronic kidney disease; Microalbuminuria; Mixed dyslipidemia (CMS/HCC); Osteopenia of spine Start: 03-17-2025 End: 03-17-2025 ambulatory FREDRICK JEROME Not Available Start: 09-16-2024 End: 09-16-2024 Bamboo flowsheet Fredrick Jerome MD Work Phone: [facility] Start: 09-16-2024 End: 09-16-2024 Bamboo flowsheet Fredrick Jerome MD Work Phone: [facility] Start: 09-16-2024 End: 09-16-2024 Office outpatient visit 15 minutes Fredrick Jerome MD Work Phone: [facility] Comment on above: Essential hypertensi on (CMS/HCC); Hypertensive nephropathy (CMS/HCC); Stage 2 chronic kidney disease; Microalbuminuria; Mixed dyslipidemia (CMS/HCC); Osteopenia of spine Start: 09-16-2024 End: 09-16-2024 ambulatory FREDRICK JEROME Not Available Start: 10-24-2023 End: 10-24-2023 ambulatory Greg Pelayo Facility:[facility] Start: 08-27-2022 End: 08-27-2022 ambulatory SUSAN MARTINEZ Facility:[facility] Start: 07-07-2022 End: 07-08-[address] FREDRICK JEROME Facility:[facility] Start: 04-11-2022 End: 04-11-2022 ambulatory PIPER CARLOS Facility:[facility] Start: 10-27-2021 End: 10-27-[address] FREDRICK JEROME Facility:[facility] Procedures Date Procedure Procedure Detail Performing Clinician Start: 06-10-2024 Mammography Fredrick kim MD Work Phone: Start: 10-24-2023 Colonoscopy Fredrick kim MD Work Phone: Start: 03-22-2023 History of total hysterectomy Hx of hysterectomy, total Fredrick Jerome MD Work Phone: Start: 05-08-2018 Colonoscopy Fredrick kim MD Work Phone: History of total hysterectomy Hx of hysterectomy, total Fredrick Jerome MD Work Phone: History of total hysterectomy Hx of hysterectomy, total January Kaylynn SCOTT Plan of Treatment Date Care Activity Detail Author Start: 10-24-2033 Screening for malign ant neoplasm of colon [facility] Start: 05-08-2028 Screening for malign ant neoplasm of colon [facility] Start: 05-06-2026 End: 05-06-2026 Patient encounter procedure 05/06/2026 2:00 PM EDT Office Visit [facility] [address] [facility] [address] [place] [address] Fredrick Jerome MD [address] [facility] [address] [place] [address] (Fax) [facility] Start: 05-05-2026 Medicare Annual Well ness (AWV) Medicare Annual Wellness (AWV) [facility] Start: 09-08-2025 End: 09-08-2025 Patient encounter procedure [facility] Start: 06-29-2025 Influenza vaccination [facility] Start: 06-10-2025 Screening for malign ant neoplasm of breast Mammogram [facility] Start: 05-08-2025 Medicare Annual Well ness (AWV) Medicare Annual Wellness (AWV) [facility] Start: 03-17-2025 End: 03-17-2025 Patient encounter procedure 03/17/2025 8:00 AM EDT Office Visit [facility] [address] [place] [place] [address] [place] [address] Fredrick Jerome MD [address] [place] [address] (Fax) Essential hypertension (CMS/HCC); Hypertensive nephropathy (CMS/HCC); Stage 2 chronic kidney disease; Microalbuminuria; Mixed dyslipidemia (CMS/HCC) [facility] Comment on above: Essential hypertensi on (CMS/HCC); Hypertensive nephropathy (CMS/HCC); Stage 2 chronic kidney disease; Microalbuminuria; Mixed dyslipidemia (CMS/HCC) Start: 03-10-2025 End: 03-10-2025 Patient encounter procedure 03/10/2025 8:00 AM EDT Office Visit [facility] [address] [place] [address] [place] [address] Fredrick Jerome MD [address] [facility] [address] [place] [address] (Fax) [facility] Start: 02-14-2025 End: 09-16-2025 Comprehensive metabolic 2000 panel - Serum or Plasma Comprehensive metabolic panel Lab Routine Essential hypertension (CMS/HCC) Hypertensive nephropathy (CMS/HCC) Stage 2 chronic kidney disease Expected: 02/14/2025, Expires: 09/16/2025 [facility] Work Phone: Comment on above: Expected: 02/14/2025 , Expires: 09/16/2025 Start: 02-14-2025 End: 09-16-2025 Lipid 1996 panel - Serum or Plasma Lipid panel Lab Routine Mixed dyslipidemia (CMS/HCC) Expected: 02/14/2025, Expires: 09/16/2025 [facility] Comment on above: Expected: 02/14/2025 , Expires: 09/16/2025 Start: 09-16-2024 End: 09-16-2024 Patient encounter procedure 09/16/2024 9:00 AM EST Office Visit [facility] [address] [id number] Fredrick Jerome MD 112 [facility] 100 [place] [address] (Fax) Essential hypertension (CMS/HCC); Hypertensive nephropathy (CMS/HCC); Stage 2 chronic kidney disease; Microalbuminuria; Mixed dyslipidemia (CMS/HCC) [facility] Comment on above: Essential hypertensi on (CMS/HCC); Hypertensive nephropathy (CMS/HCC); Stage 2 chronic kidney disease; Microalbuminuria; Mixed dyslipidemia ([facility]/HCC) Start: 06-29-2024 Influenza vaccination Influenza Vacc ine (#1) [facility] Start: 1950 Screening for malign ant neoplasm of colon [facility] Immunizations Immunization Date Immunization Notes Care Provider Fa cility 11-14-2024 influenza, high dose seasonal, preservative-free Fredrick Jerome MD Work Phone: [facility] 11-14-2024 influenza virus vacc ine, unspecified formulation Fredrick Jerome MD Work Phone: [facility] 09-26-2023 RSV, recombinant, pr otein subunit RSVpreF, adjuvant reconstitu, 120mcg/0.5mL, PF (Arexvy) Fredrick Jerome MD Work Phone: [facility] 08-30-2023 zoster vaccine recombinant E chava Jerome MD Work Phone: [facility] 08-03-2023 Influenza, Seasonal, Quadrivalent, Adjuvanted Fredrick Jerome MD Work Phone: [facility] 08-03-2023 influenza virus vacc ine, unspecified formulation Fredrick Jerome MD Work Phone: [facility] 05-19-2023 zoster vaccine recombinant E chava Jerome MD Work Phone: [facility] 09-06-2022 Influenza, High-dose Seasonal, Quadrivalent, Preservative Free Fredrick Jerome MD Work Phone: [facility] 08-03-2021 Influenza, High-dose Seasonal, Quadrivalent, Preservative Free Fredrick Jerome MD Work Phone: [facility] 07-31-2020 influenza, high dose seasonal, preservative-free Fredrick Jerome MD Work Phone: [facility] 09-15-2019 influenza, high dose seasonal, preservative-free Fredrick Jerome MD Work Phone: [facility] 08-07-2018 influenza, high dose seasonal, preservative-free Fredrick Jerome MD Work Phone: [facility] 09-03-2017 influenza, injectabl e, quadrivalent, preservative free Fredrick Jerome MD Work Phone: [facility] 05-08-2017 pneumococcal polysaccharide vaccine, 23 valent Fredrick Jerome MD Work Phone: [facility] 09-18-2016 influenza, injectabl e, quadrivalent, preservative free Fredrick Jerome MD Work Phone: [facility] 03-09-2016 pneumococcal polysaccharide vaccine, 23 valent Fredrick Jerome MD Work Phone: [facility] 03-02-2016 pneumococcal conjuga te vaccine, 13 valent Fredrick Jerome MD Work Phone: [facility] 10-08-2015 influenza, seasonal, injectable, preservative free Fredrick Jerome MD Work Phone: [facility] 08-13-2013 seasonal influenza, intradermal, preservative free Fredrick Jerome MD Work Phone: [facility] Healthcare Payers Date Payer Category Payer Self-pay 2023 Private Health Insurance [facility] [id number] 2015 Medicare MEDICARE [id number] 1959 Medicare [id number] 1959 Unknown [id number] 1950 Unknown [id number] 1950 Unknown [id number] 1950 Unknown [id number] 1950 Unknown [id number] 1950 Unknown [id number] 1950 Unknown [id number] 1950 Unknown [id number] Unknown [id number] Social History Date Type Detail Facility Start: 03-28-2023 Tobacco smoking status NHIS Never sm oked tobacco [facility] Start: 03-28-2023 Tobacco use and exposure Smoke less tobacco non-user [facility] Start: 05-08-2024 End: 05-05-2025 Alcoholic beverage intake Current drinker of alcohol (finding) [facility] Start: 05-08-2024 End: 03-16-2025 Alcoholic beverage intake [facility] Start: 09-25-2023 End: 03-16-2025 Humiliation, Afraid, Rape, and Kick questionnaire [HARK] [facility] Within the last year , have you been afraid of your partner or ex-partner? No [facility] Do you belong to any clubs or organizations such as adventism groups, unions, fraternal or athletic groups, or school groups? Yes [facility] Are you now , , , , never or living with a partner? [facility] How often to you hav e a drink containing alcohol? Monthly or less [facility] How many standard dr inks containing alcohol do you have on a typical day? 1 or 2 [facility] How often do you hav e 6 or more drinks on 1 occasion? Never [facility] How hard is it for y ou to pay for the very basics like food, housing, medical care, and heating Not hard at all [facility] Do you feel stress - tense, restless, nervous, or anxious, or unable to sleep at night because your mind is troubled all the time - these days [OSQ] Not at all [facility] (I/We) worried [facility] (my/our) food would run out before (I/we) got money to buy more. Never true [facility] Start: 05-08-2024 Alcohol Comment Very occasionaly [facility] Start: 1950 Sex assigned at Not on file [facility] Start: 01-10-2023 Gender identity Identifies as female gender (finding) [facility] Do you feel stress - tense, restless, nervous, or anxious, or unable to sleep at night because your mind is troubled all the time - these days [OSQ] Rather much [facility] Telephone encounter Note 05-28-2025 Telephone Encounter - Fredrick Jerome MD - 05/28/2025 3:40 PM EDT Note Date & Type Note Facility 05-28-2025 Telephone encount er Note Prescription sent [facility] Note 05-28-2025 Telephone Encounter - Fredrick Jerome MD - 05/28/2025 3:40 PM EDTTelephone Encounter - Ana Paula Chaidez MA - 05/28/2025 3:24 PM EDT Note Date & Type Note Facility 05-28-2025 Miscellaneous Notes Formattin g of this note might be different from the original. Prescription sent Idalia called and stated she had previously talked to that she was not going to see her dr in [place] anymore for urology because all they fill for her is her estradiol cream and had offered to take it over and that she was supposed to call when she was ready for it. She would like to know if you can send this to [facility]. I have it pended if it is okay documented in this encounter [facility] Telephone encounter Note 05-28-2025 Telephone Encounter - Ana Paula Chaidez MA - 05/28/2025 3:24 PM EDT Note Date & Type Note Facility 05-28-2025 Telephone encount er Note Idalia called and stated she had previously talked to that she was not going to see her dr in [place] anymore for urology because all they fill for her is her estradiol cream and had offered to take it over and that she was supposed to call when she was ready for it. She would like to know if you can send this to [facility]. I have it pended if it is okay [facility] History of Present illness Narrative 05-05-2025 Fredrick Jerome MD - 05/05/2025 2:00 PM EDT Note Date & Type Note Facility 05-05-2025 History of Presen t illness Narrative Images from the original note were not included. Kristan Barker is a 74 y.o. female presents with chief complaint of Annual Exam HPI: History of Present Illness I have reviewed and reconciled the history and medication list with the patient today. CURRENT PCP/CARE TEAM: Patient Care Team: Fredrick Jerome MD as PCP - General (Family Medicine) Fredrick Jerome MD as PCP - ACO Reach Win Brooke MD as Referring Physician (Optometry) Billie Cruz MD as Referring Physician (Retina Ophthalmology) Over the past 2 weeks, how often have you been bothered by any of the following problems? Little interest or pleasure in doing things: Not at all Feeling down, depressed, or hopeless: Not at all Patient Health Questionnaire-2 Score: 0 Wallace Fall Risk History of Falling, Immediate or Within 3 Months: No Secondary Diagnosis: No Intravenous Therapy/Heparin Lock: No Health Risk Assessment Form Do you need help eating, bathing, using the toilet, dressing, or getting around your home?: No Can you prepare your own meals?: Yes Can you do your own housework without help?: Yes Do you exercise for about 20 minutes 3 or more days a week?: Yes How confident are you that you can control and manage most of your health problems?: Very confident Can you mange your money, credit cards and accounts, pay bills and taxes?: Yes Vision Screening: Yes, 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 Hearing Screening: Not done Cognitive Screening Self Assessment: No concerns rasied by family members, friends, or caretakers Three Word Registration: Chinedu, Pj, Finger Clock Drawing: Normal Clock - 2 Three Word Recall: All 3 words correct - 3 Total Score (0-5 Points): 5 Pain Assessment Pain Score: 0 - No pain HISTORIES: PAST MEDICAL HISTORY: Past Medical History: Diagnosis Date Achilles tendinitis of right lower extremity Cataract 07/2022 Disorder of bone ESS (euthyroid sick syndrome) Eye problems 2014 Heart murmur Hypertensive urgency Hypothyroidism Osteopenia Pneumonia 11/2017 didn't stay overnight in [place], was on bedrest for two weeks Rotator cuff syndrome Urinary tract infection Vitamin D deficiency SURGICAL HISTORY: Past Surgical History: Procedure Laterality Date COLONOSCOPY 04/2018 [place] ARTHROCENTESIS ASPIR&/INJ MAJOR JT/BURSA W/O US TOTAL ABDOMINAL HYSTERECTOMY W/ BILATERAL SALPINGOOPHORECTOMY 1996 TUBAL LIGATION Bilateral 1978 SOCIAL HISTORY: Social History Tobacco Use Smoking status: Never Smokeless tobacco: Never Substance Use Topics Alcohol use: Yes Alcohol/week: 2.0 standard drinks of alcohol Comment: Very occasionaly Drug use: Never Depression: Not at risk (04/28/2025) PHQ-2 PHQ-2 Score: 0 FAMILY HISTORY: Family History Problem Relation Name Age of Onset Stroke Mother Mom Hypertension Mother Mom Heart disease Father Dad Alcohol abuse Father Dad Cancer Sister Carmelita Atrial fibrillation Brother Justin Heart disease Brother Justin Other (Pacemaker) Brother Justin Heart disease Brother Junaid No Known Problems Daughter No Known Problems Son Cancer Brother Clyde MEDICATIONS: Current Outpatient Medications Medication Instructions alpha tocopherol (VITAMIN E) 100 Units, Daily aspirin 81 mg, Daily calcium citrate 1040 MG tablet 1 tablet, 2 times daily cholecalciferol (Vitamin D-3) 50 MCG (1999) tablet 1 tablet Orally Once a day - during the winter then 2,000units in spring Cranberry-Vitamin C-Vitamin E (CRANBERRY PLUS VITAMIN C PO) Cranberry Plus Vitamin C estradiol (ESTRACE) 1 g, 3 times weekly Krill Oil 1000 MG capsule 1 capsule, Daily magnesium 100 MG tablet Every 24 hours mirabegron ER (MYRBETRIQ) 50 mg, Daily Pediatric Multiple Vitamins (THERA MULTI-VITAMIN PO) 1 twice a day Orally Potassium 99 MG tablet 1 tablet, Daily raloxifene (EVISTA) 60 mg, Oral, Daily rosuvastatin (CRESTOR) 10 mg, Oral, Every evening vitamin C 1,000 mg, Daily ALLERGIES: Allergies Allergen Reactions Hydrochlorothiazide Other Reaction(s): dizziness, Dizziness or Vertigo PHYSICAL EXAM: Visit Vitals BP 126/76 Pulse 59 Ht 5' 6 Wt 149 lb SpO2 96% BMI 24.05 kg/m OB Status Hysterectomy Smoking Status Never BSA 1.77 m BP Readings from Last 3 Encounters: 05/05/25 126/76 03/17/25 126/72 09/16/24 126/70 Wt Readings from Last 3 Encounters: 05/05/25 149 lb 03/17/25 145 lb 09/16/24 151 lb 8 oz Physical Exam The patient is pleasant and in no acute distress The patient has good eye contact and clear speech Results ASCVD 10-Year Risk Score Current as of 7 hours ago 14.3% 0 to < 5%: Low Risk 5 to < 7.5%: Borderline Risk 7.5 to < 20%: Intermediate Risk 20 to 100%: High Risk Last Change: An Atherosclerotic Cardiovascular Disease (ASCVD) event is defined as myocardial infarction, CHD , or stroke. The ASCVD risk score (Chris FIELD, et al., 2019, 2020 [place] [employer]) returns the percentage likelihood of a first time ASCVD event. Age: 74 Legal Sex: Female Non- : No Smokes Tobacco: No Has Diabetes Excluding Gestational Diabetes: No Systolic BP: 126 HDL: 80 mg/dL Total cholesterol: 241 mg/dL Is BP Treated: No ASSESSMENT AND PLAN: Assessment/Plan 1. Encounter for Medicare annual wellness exam (Primary) The patient is here for their Annual Medicare Wellness visit. Demographics were updated. Self-assessment was completed and reviewed. Past medical, family, and social history were updated. The medication list updated and reviewed by the doctor. A list of other current medical providers is established and updated. Time was spent discussing health maintenance issues, ordering testing as appropriate, and a schedule was reviewed regarding recommended screening. We discussed safety issues and fall risk. Depression screening was completed and addressed as appropriate. Fall screening was completed and addressed. Cognitive function was assessed by direct observation, cognitive screening as indicated, and assessment of ability to perform ADL's. The BMI and discussed. Major risk factors for chronic disease including family history were discussed. An after visit summary is made available to the patient 2. Advance directive in chart No changes to advanced directives 3. Encounter for screening for other disorder Clinically insignificant depression screening 4. Screening for alcohol problem Negative alcohol screening 5. Hx of hysterectomy, total Exclusionary diagnosis for HEDIS measures for cervical cancer screening 6. Cardiovascular event risk The patient has ASCVD risk factors, but does not currently have a cardiovascular disease diagnosis. A standardized, evidence-based ASCVD risk assessment, is generated during the office visit. Each section is reviewed individually with the patient and a discussion concerning any modifiable risk factors. This discussion lasted approximately 5-10 minutes documented in this encounter [facility] History of Present illness Narrative 03-17-2025 Fredrick Jerome MD - 03/17/2025 8:00 AM EDT Note Date & Type Note Facility 03-17-2025 History of Presen t illness Narrative Images from the original note were not included. Patient ID: Kristan Barker is a 74 y.o. female who presents for: Hypertension Patient is here for follow-up of elevated blood pressure. She is exercising and is adherent to a low-salt diet. Blood pressure is well controlled at home. Cardiac symptoms: none. Patient denies chest pain, dyspnea, irregular heart beat, lower extremity edema, and palpitations. Cardiovascular risk factors: advanced age (older than 55 for men, 65 for women), dyslipidemia, hypertension, and microalbuminuria. Use of agents associated with hypertension: none. History of target organ damage: chronic kidney disease. Hyperlipidemia Pt who presents for follow-up of dyslipidemia. A repeat fasting lipid profile was done. The patient does not use medications that may worsen dyslipidemias (corticosteroids, progestins, anabolic steroids, diuretics, beta-blockers, amiodarone, cyclosporine, olanzapine). Exercise: three times a week. Review of Systems Constitutional: Negative for activity change and fatigue. Respiratory: Negative for cough, shortness of breath and wheezing. Cardiovascular: Negative for chest pain, palpitations and leg swelling. Neurological: Negative for light-headedness and headaches. Objective The patient is pleasant and in no acute distress. The neck is supple and trachea is midline. No masses are appreciated. The heart is regular rate and rhythm without S3, S4. No murmur. The patient has normal respiratory pattern. The breath sounds are symmetrical without evidence of rhonchi or rales. No wheezing. The skin is warm and dry. The lower extremities have trace edema. The patient has good eye contact and speech is clear. Appropriate affect. 05/07/2023 8:38 AM 08/07/2023 11:29 AM 10/02/2023 8:35 AM 10/11/2023 8:22 AM 01/31/2024 9:02 AM 03/25/2024 8:31 AM 09/16/2024 9:00 AM Vitals BMI 23.24 kg/m2 23.24 kg/m2 23.89 kg/m2 23.89 kg/m2 23.89 kg/m2 24.45 kg/m2 24.45 kg/m2 BSA (m2) 1.74 m2 1.74 m2 1.77 m2 1.77 m2 1.77 m2 1.79 m2 1.79 m2 Systolic 126 124 118 126 Diastolic 74 74 68 70 Heart Rate 68 76 57 67 SpO2 98 % 98 % 98 % 97 % Height (in) 5' 6 5' 6 5' 6 5' 6 5' 6 5' 6 5' 6 Weight (lb) 144 144 148 148 148 151.5 151.5 Visit Report Report Report Report Report Report Report Report Reviewed the CMP and lipid profile with the patient. Allergies Allergen Reactions Hydrochlorothiazide Other Reaction(s): dizziness, Dizziness or Vertigo Current Outpatient Medications on File Prior to Visit Medication Sig Dispense Refill alpha tocopherol (Vitamin E) 100 units capsule Take 100 Units by mouth in the morning. Ascorbic Acid (vitamin C) 1000 MG tablet Take 1,000 mg by mouth in the morning. aspirin 81 MG EC tablet Take 81 mg by mouth in the morning. calcium citrate 1040 MG tablet Take 1 tablet by mouth in the morning and 1 tablet before bedtime. cholecalciferol (Vitamin D-3) 50 MCG (1999) tablet 1 tablet Orally Once a day - during the winter then 2,000units in spring Cranberry-Vitamin C-Vitamin E (CRANBERRY PLUS VITAMIN C PO) Cranberry Plus Vitamin C estradiol (Estrace) 0.1 MG/GM vaginal cream Insert 1 g into the vagina 3 (three) times a week. Krill Oil 1000 MG capsule Take 1 capsule by mouth in the morning. magnesium 100 MG tablet 1 (one) time each day at the same time. mirabegron ER (Myrbetriq) 50 MG 24 hr tablet Take 50 mg by mouth in the morning. Pediatric Multiple Vitamins (THERA MULTI-VITAMIN PO) 1 twice a day Orally Potassium 99 MG tablet Take 1 tablet by mouth in the morning. raloxifene (Evista) 60 MG tablet Take 1 tablet (60 mg) by mouth Daily 90 tablet 1 rosuvastatin (Crestor) 10 MG tablet Take 1 tablet (10 mg) by mouth in the evening 90 tablet 1 No current facility-administered medications on file prior to visit. 1. Essential hypertension (CMS/HCC) Chronic problem, stable, to goal. The patient is watching her blood pressure readings at home and they are all to goal. She does have a walking program. She is going through some situational stressors with her 's health, but her blood pressure is maintaining. 2. Hypertensive nephropathy (CMS/HCC) Chronic problem, stable, demonstrating end organ damage from their current state of health. I stressed the importance of keeping blood pressure and blood sugar to goal, staying well hydrated, avoiding NSAIDs, and aerobic exercises as tolerated. Continue to monitor longitudinally. 3. Stage 2 chronic kidney disease Chronic problem, stable, defining the end organ damage of the nephropathy. I stressed the importance of keeping blood pressure and blood sugar to goal, staying well hydrated, and aerobic exercises as tolerated. Continue to monitor longitudinally. 4. Microalbuminuria Chronic problem, defining an aspect the nephropathy, with significant risk, uncertain progression requiring longitudinal monitoring, and moderate decision making. Microalbuminuria describes a moderate increase in the level of urine albumin. Normally, the kidneys filter albumin, so if the kidney leaks small amounts of albumin into the urine then it is a indicator of chronic kidney disease. Microalbuminuria is an independent indicator of increased cardiovascular risk among individuals and therefore can be used for risk stratification for cardiovascular disease. 5. Mixed dyslipidemia (CMS/HCC) Chronic problem, stable We did discuss the technically her LDL goal would be 130 or less and she is coming in at 1:39 a.m.. However she does have an HDL of 80. Her relative risk for cholesterol only numbers is 3. This is on the borderline between average and below average. After discussion, we have mutually agreed to continue current treatment. - rosuvastatin (Crestor) 10 MG tablet; Take 1 tablet (10 mg) by mouth in the evening Dispense: 90 tablet; Refill: 1 6. Osteopenia of spine In prescribing a renewal to their current medication, consideration of the following encompasses moderate decision making; the current prescriptions and supplements, the current allergies and medication intolerances, current medical conditions, and potential drug interactions. Any changes to risks, benefits, and reason for renewing their current medication due to the above were discussed. The patient was given a chance to ask questions today and all questions were answered. The patient is to contact us if any other questions arise or if any problems occur. (Utilizing the original guidelines or the 2020 office/outpatient code guidelines for selecting the level of E/M service, In both sets of guidelines, prescription drug management appears in the moderate medical decision making (MDM) row. Neither the original guidelines nor the new guidelines state that a new prescription or change is needed in order to credit prescription drug management) - raloxifene (Evista) 60 MG tablet; Take 1 tablet (60 mg) by mouth Daily Dispense: 90 tablet; Refill: 1 documented in this encounter [facility] History of Present illness Narrative 09-16-2024 Fredrick Jerome MD - 09/16/2024 9:00 AM EST Note Date & Type Note Facility 09-16-2024 History of Presen t illness Narrative Images from the original note were not included. Patient ID: Kristan Barker is a 73 y.o. female who presents for: Hypertension Patient is here for follow-up of elevated blood pressure. She is exercising and is not adherent to a low-salt diet. Blood pressure is well controlled at home. Cardiac symptoms: none. Patient denies chest pain, dyspnea, irregular heart beat, lower extremity edema, and palpitations. Cardiovascular risk factors: advanced age (older than 55 for men, 65 for women), dyslipidemia, and hypertension. Use of agents associated with hypertension: none. History of target organ damage: none. Hyperlipidemia Pt who presents for follow-up of dyslipidemia. A repeat fasting lipid profile was not done. The patient does not use medications that may worsen dyslipidemias (corticosteroids, progestins, anabolic steroids, diuretics, beta-blockers, amiodarone, cyclosporine, olanzapine). Exercise: daily. Review of Systems Constitutional: Negative for activity change and fatigue. Respiratory: Negative for cough, shortness of breath and wheezing. Cardiovascular: Negative for chest pain, palpitations and leg swelling. Neurological: Negative for light-headedness and headaches. Objective The patient is pleasant and in no acute distress. The neck is supple and trachea is midline. No masses are appreciated. The heart is regular rate and rhythm without S3, S4. No murmur. The patient has normal respiratory pattern. The breath sounds are symmetrical without evidence of rhonchi or rales. No wheezing. The skin is warm and dry. The lower extremities have trace edema. The patient has good eye contact and speech is clear. Appropriate affect. Visit Vitals BP 126/70 Pulse 67 Ht 5' 6 Wt 151 lb 8 oz SpO2 97% BMI 24.45 kg/m OB Status Hysterectomy Smoking Status Never BSA 1.79 m Allergies Allergen Reactions Hydrochlorothiazide Other Reaction(s): dizziness, Dizziness or Vertigo Current Outpatient Medications on File Prior to Visit Medication Sig Dispense Refill alpha tocopherol (Vitamin E) 100 units capsule Take 100 Units by mouth in the morning. Ascorbic Acid (vitamin C) 1000 MG tablet Take 1,000 mg by mouth in the morning. aspirin 81 MG EC tablet Take 81 mg by mouth in the morning. calcium citrate 1040 MG tablet Take 1 tablet by mouth in the morning and 1 tablet before bedtime. cholecalciferol (Vitamin D-3) 50 MCG (1999) tablet 1 tablet Orally Once a day - during the winter then 2,000units in spring Cranberry-Vitamin C-Vitamin E (CRANBERRY PLUS VITAMIN C PO) Cranberry Plus Vitamin C estradiol (Estrace) 0.1 MG/GM vaginal cream Insert 1 g into the vagina 3 (three) times a week. Krill Oil 1000 MG capsule Take 1 capsule by mouth in the morning. magnesium 100 MG tablet 1 (one) time each day at the same time. mirabegron ER (Myrbetriq) 50 MG 24 hr tablet Take 50 mg by mouth in the morning. Pediatric Multiple Vitamins (THERA MULTI-VITAMIN PO) 1 twice a day Orally Potassium 99 MG tablet Take 1 tablet by mouth in the morning. raloxifene (Evista) 60 MG tablet Take 1 tablet (60 mg) by mouth Daily 90 tablet 1 rosuvastatin (Crestor) 10 MG tablet Take 1 tablet (10 mg) by mouth in the evening 90 tablet 1 No current facility-administered medications on file prior to visit. 1. Essential hypertension (CMS/HCC) Chronic problem, stable, to goal - Comprehensive metabolic panel; Future - Comprehensive metabolic panel 2. Hypertensive nephropathy (CMS/HCC) - Comprehensive metabolic panel; Future - Comprehensive metabolic panel 3. Stage 2 chronic kidney disease - Comprehensive metabolic panel; Future - Comprehensive metabolic panel 4. Microalbuminuria microalbuminuria 5. Mixed dyslipidemia (CMS/HCC) In prescribing a renewal to their current medication, consideration of the following encompasses moderate decision making; the current prescriptions and supplements, the current allergies and medication intolerances, current medical conditions, and potential drug interactions. Any changes to risks, benefits, and reason for renewing their current medication due to the above were discussed. The patient was given a chance to ask questions today and all questions were answered. The patient is to contact us if any other questions arise or if any problems occur. (Utilizing the original 1994/1996 guidelines or the 2020 office/outpatient code guidelines for selecting the level of E/M service, In both sets of guidelines, prescription drug management appears in the moderate medical decision making (MDM) row. Neither the original guidelines nor the new guidelines state that a new prescription or change is needed in order to credit prescription drug management) - rosuvastatin (Crestor) 10 MG tablet; Take 1 tablet (10 mg) by mouth in the evening Dispense: 90 tablet; Refill: 1 - Lipid panel; Future - Lipid panel 6. Osteopenia of spine - raloxifene (Evista) 60 MG tablet; Take 1 tablet (60 mg) by mouth Daily Dispense: 90 tablet; Refill: 1 documented in this encounter [facility] Evaluation note Note Date & Type Note Facility Evaluation note Diagnosis Essential hypertension (CMS/HCC) Unspecified essential hypertension Hypertensive nephropathy (CMS/HCC) Unspecified hypertensive kidney disease with chronic kidney disease stage I through stage IV, or unspecified Stage 2 chronic kidney disease Microalbuminuria Proteinuria Mixed dyslipidemia (CMS/HCC) Osteopenia of spine documented in this encounter [facility] Evaluation note Note Date & Type Note Facility Evaluation note Diagnosis Essential hypertension (CMS/HCC) Unspecified essential hypertension Hypertensive nephropathy (CMS/HCC) Unspecified hypertensive kidney disease with chronic kidney disease stage I through stage IV, or unspecified Stage 2 chronic kidney disease Microalbuminuria Proteinuria Mixed dyslipidemia (CMS/HCC) Osteopenia of spine documented in this encounter [facility] Evaluation note Note Date & Type Note Facility Evaluation note Diagnosis Encounter for Medicare annual wellness exam- Primary Advance directive in chart Encounter for screening for other disorder Screening for alcohol problem Screening for alcoholism Hx of hysterectomy, total Cardiovascular event risk documented in this encounter [facility] Evaluation note Note Date & Type Note Facility Evaluation note Diagnosis Hx of hysterectomy, total Symptomatic states associated with artificial menopause documented in this encounter [facility] Summary Purpose Family History No Family History Records FoundNo Family History Records FoundNo Family History Records FoundNo Family History Records Found Advance Directives Documents on File Type Date Recorded 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 DATE CREATED AUTHOR AUTHOR'S ORGANIZ ATION 03/14/2025 [facility] DATE CREATED AUTHOR AUTHOR'S ORGANIZ ATION 05/09/2025 [facility] Care Teams (unrecognized sec tion and content) Histopathologist Relationship Specialty Start Date End Date Fredrick Jerome MD [address] [place] [address] (Fax) PCP - ACO Reach 03/22/23 Fredrick Jerome MD [address] [place] [address] (Fax) PCP - General Family Medicine 03/28/23 Histopathologist Relationship Specialty Start Date End Date Fredrick Jerome MD [address] [place] [phone] (Fax) PCP - ACO Reach 03/22/23 Fredrick Jerome MD [address] [place] [address] (Fax) PCP - General Family Medicine 03/28/23 Histopathologist Relationship Specialty Start Date End Date Fredrick Jerome MD [address] [place] [address] (Fax) PCP - ACO Reach 03/22/23 Fredrick Jerome MD [address] [place] [address] (Fax) PCP - General Family Medicine 03/28/23 Win Brooke MD [address] [place] [phone] Referring Physician Optometry 03/02/25 Billie Cruz MD [address] [place] [address], [address] [place] [address] Referring Physician Retina Ophthalmology 03/02/25 Histopathologist Relationship Specialty Start Date End Date Fredrick Jerome MD [address] [facility] [address] [place] [address] (Fax) PCP - ACO Reach 03/22/23 Fredrick Jerome MD [address] [place] [address] (Fax) PCP - General Family Medicine 03/28/23 Win Brooke MD [address] [place] [phone] Referring Physician Optometry 03/02/25 Billie Cruz MD [address] [place] [address], [address] [place] [address] Referring Physician Retina Ophthalmology 03/02/25 Histopathologist Relationship Specialty Start Date End Date Fredrick Jerome MD [address] [place] [address] (Fax) PCP - ACO Reach 03/22/23 Fredrick Jerome MD [address] [address] (Fax) PCP - General Family Medicine 03/28/23 Win Brooke MD [address] [place] [address] Referring Physician Optometry 03/02/25 Billie Cruz MD [address] [place] [address], [address] [place] [address] Referring Physician Retina Ophthalmology 03/02/25 Histopathologist Relationship Specialty Start Date End Date Fredrick Jerome MD [address] [address] (Fax) PCP - ACO Reach 03/22/23 Fredrick Jerome MD [address] [address] (Fax) PCP - General Family Medicine 05/05/25 Win Brooke MD [address] [place] [address] Referring Physician Optometry 03/02/25 Billie Cruz MD [address] [place] [address], [address] [place] [address] Referring Physician Retina Ophthalmology 03/02/25 Histopathologist Relationship Specialty Start Date End Date Fredrick Jerome MD [address] [phone] (Fax) PCP - ACO Reach 03/22/23 Fredrick Jerome MD [address] [facility] [address] [place] [address] PCP - General Family Medicine 05/05/25 Win Brooke MD [address] [place] [address] Referring Physician Optometry 03/02/25 Billie Cruz MD [address] [place] [address], [address] [place] [address] Referring Physician Retina Ophthalmology 03/02/25 Reason for Visit (unrecogniz ed section and content) Reason Comments Hypertension Hyperlipidemia Reason Comments Annual Exam Reason Onset Date Comments Care Coordination 05/28/2025 FOR RECORDS PERTAINING TO PATIENTS WHO ARE [...] BE BASED ON THE PRIMARY CLINICAL RECORDS. [facility]. provides no warranty or guarantee of the accuracy or completeness of information in this document.
--- NOTE | 2025-06-25 10:31 | CT_ITS ---
The [address] [address] Patient Name: YANELY DOUGLASS MRN: [id number] date: 1950 Sex: F Assigned Patient Location: ED.MAIN Current Patient Location: ED.MAIN Accession/Order Number: [id number] Exam Date: 06/25/2025 10:44 Report Date: 06/25/2025 11:51 At the request of: NATHANIEL THOMPSON MD Procedure: CT abdomen pelvis wo con CT ABDOMEN AND PELVIS WITHOUT CONTRAST CLINICAL DATA: Patient rolled out of bed and hit right side on steps. COMPARISON: None Spiral images were obtained through the abdomen and pelvis without contrast. This CT exam was performed using one or more following dose reduction techniques: Automated exposure control, adjustment of the mA and/or kV according to patient size, or use of iterative reconstruction technique. Limited cuts through the lung bases show tiny hiatal hernia. There is minimal atelectasis or scarring. Assessment of the intra-abdominal organs is slightly limited by the absence of contrast. The liver is slightly heterogeneous. There is no obvious hepatic laceration within limits of unenhanced technique. No calcified gallstones are seen. The spleen, pancreas and adrenal glands show no acute findings. No renal calculi are identified. Minor renal cortical scarring is noted. No hydronephrosis is present. There is minor atherosclerotic plaque at the aorta and iliac arteries. No aneurysm is seen. Small abdominal lymph nodes are present. There is no ascites. The small bowel loops are normal caliber. Mild stool is visualized throughout the colon. There is subtle levoscoliotic curvature. Mild degenerative changes are present. There are no acute compression fractures. Images through the pelvis show normal caliber small bowel loops. There is no appendiceal inflammation. A small amount of colonic stool is seen distally. There is no diverticular disease. The uterus is surgically absent. The urinary bladder shows no abnormalities for the degree of distention. There are degenerative changes at both hips. No acute pelvic fractures are seen. CT/CT abdomen pelvis wo con IMPRESSION: NO ACUTE INTRA-ABDOMINAL OR PELVIC TRAUMA. NO BOWEL OR URINARY TRACT OBSTRUCTION. Impression dictated by: Jordyn Gleason M.D. 06/25/2025 11:51 AM Dictation Location: [facility] Electronically authenticated by: [id number] Y Date: 06/25/2025 11:51
[2025-06-25] MEDS: TRAMADOL HCL 50 MG TABLET PO (11:09)
--- NOTE | 2025-06-25 12:13 | ED.FALL1 ---
HPI HPI - Fall General Chief Complaint: Fall Stated Complaint: FALL 06/25- SIDE PAIN Time Seen by Provider: 06/25/25 10:22 Source: patient Mode of arrival: walk-in Limitations: no limitations History of Present Illness HPI Narrative: The patient is coming today with a right upper quadrant pain that she sustained after falling from the bed today, the patient have a steps that she used to go into the bed , but apparently today she missed estimated the distance and she fell from the bed on the steps and the steps hit the right upper quadrant of her abdomen. The patient did not hit her head there was no loss of consciousness She denies any nausea vomiting or any other concerns but she is worried about the abrasion that she have to her right upper quadrant The patient does not take any anticoagulant Related Data Home Medications ?Medication ?Instructions ?Recorded ?Confirmed Lactobacillus acidophilus 10 100 mmu cells PO DAILY 06/25/25 06/25/25 billion cell capsule (DermacinRx Bacillex) MULTITHERA 1 tab PO BID 06/25/25 06/25/25 ascorbic acid (vitamin C) 500 mg 500 mg PO DAILY 06/25/25 06/25/25 chewable tablet (Acerola C) aspirin 81 mg tablet,delayed 81 mg PO DAILY 06/25/25 06/25/25 release (Adult Aspirin Regimen) calcium citrate 25 mg PO DAILY 06/25/25 06/25/25 cholecalciferol (vitamin D3) 50 50 mcg PO BEDTIME 06/25/25 06/25/25 mcg (2,000 unit) tablet coQ10 (ubiquinol) 100 mg capsule 100 mg PO DAILY 06/25/25 06/25/25 (Qunol Galindo CoQ10) cranberry concentrate-ascorbic 1 cap PO DAILY 06/25/25 06/25/25 acid 140 mg-100 mg capsule (Cranberry Plus Vitamin C) estradiol 0.01% (0.1 mg/gram) 0.25 appful vaginal .MWF 06/25/25 06/25/25 vaginal cream krill oil 500 mg capsule 1 mg PO DAILY 06/25/25 06/25/25 magnesium glycinate 100 mg (as 100 mg PO BEDTIME 06/25/25 06/25/25 glycinate) tablet (Mag Glycinate) mirabegron 50 mg tablet,extended 50 mg PO DAILY 06/25/25 06/25/25 release 24 hr (Myrbetriq) potassium 99 mg tablet 99 mg PO DAILY 06/25/25 06/25/25 raloxifene 60 mg tablet (Evista) 60 mg PO DAILY 06/25/25 06/25/25 rosuvastatin 5 mg tablet 5 mg PO BEDTIME 06/25/25 06/25/25 strontium 277 mg PO BEDTIME 06/25/25 06/25/25 vitamin E 268 mg (400 unit) capsule 400 mg PO DAILY 06/25/25 06/25/25 Previous Rx's ?Medication ?Instructions ?Recorded diclofenac sodium 50 mg 50 mg PO Q12H PRN pain #14 tabs 06/25/25 tablet,delayed release Allergies Allergy/AdvReac Type Severity Reaction Status Date / Time No Known Drug Allergies Allergy Verified 06/25/25 10:09 Opioid HPI Opioid Management Most Recent Pain and Opioid Data: Last Pain Scale 5 Today, 10:31 Review of Systems ROS Status of ROS 10 or more systems reviewed and unremarkable except as noted in history and below PFSH PFSH Social History Little interest or pleasure in doing things: not at all Feeling down, depressed, or hopeless: not at all Exam Narrative Exam Narrative: Nurses notes and vital signs reviewed and patient is not hypoxic. General: Well-appearing and in no apparent distress. Skin: Warm, dry, no pallor noted. No rash. Head: Normocephalic, atraumatic. Neck: Supple, non-tender. Eye: Pupils are equal, round and EOMI. No scleral icterus. Cardiovascular: Regular Rate and Rhythm without murmur, gallop or rub. Respiratory: No accessory muscle use or respiratory distress. Lungs are clear to auscultation, no wheezing, rales or rhonchi Chest Wall: no tenderness Back: No midline thoracic or lumbar vertebral tenderness. No CVA tenderness Musculoskeletal: normal ROM, no calf or popliteal tenderness, no lower extremity edema/swelling GI: There is abrasion to the right upper quadrant mostly at the midaxillary line on the right side in addition to anteriorly just at the right upper quadrant abrasion are linear like and they are almost 1 and 1.5 cm superficial abdomen is soft, non-distended. Normal bowel sounds. No obvious ecchymosis No masses appreciated. No tenderness to palpation. No rebound, guarding, or rigidity noted. Neurological: A&O x4. No cranial nerve dysfunction observed. No truncal ataxia. Moves all extremities. Sensation intact. Psychiatric: Cooperative and interactive. Normal mood and affect. Constitutional Vital Signs, click to edit/add: Last Vital Signs Temp 98.8 F 06/25/25 10:05 Pulse 78 06/25/25 12:22 Resp 20 06/25/25 12:22 BP 174/94 H 06/25/25 12:22 Pulse Ox 98 06/25/25 12:22 O2 Del Method Room Air 06/25/25 10:05 Course Vital Signs Vital signs: Vital Signs Temperature 98.8 F 06/25/25 10:05 Pulse Rate 79 06/25/25 10:05 Respiratory Rate 20 06/25/25 10:05 Blood Pressure 177/98 H 06/25/25 10:05 Pulse Oximetry 98 06/25/25 10:05 Oxygen Delivery Method Room Air 06/25/25 10:05 Temperature 98.8 F 06/25/25 10:05 Pulse Rate 78 06/25/25 12:22 Respiratory Rate 20 06/25/25 12:22 Blood Pressure 174/94 H 06/25/25 12:22 Pulse Oximetry 98 06/25/25 12:22 Oxygen Delivery Method Room Air 06/25/25 10:05 MDM - Fall MDM Narrative Medical decision making narrative: The patient provided with tramadol for pain in the ER The patient had a CAT scan of the abdomen pelvis that showed no acute pathology She was feeling much better after initial assessment but she was instructed about monitoring her symptoms in case of increasing pain she is to come back to the ER I did explain to her that the contusion usually will cause more swelling with time and the patient have to applies ice to the area to control the swelling The patient is to follow up with primary care physician in next 2-3 days or to return to the emergency department should any of the signs or symptoms worsen or new symptoms develop. The patient agrees with the following Diagnosis and Treatment plan and the patient will be discharged home. Discharge Plan Discharge Chief Complaint: Fall Clinical Impression: Abdominal wall contusion Patient Disposition: Home, Self-Care Time of Disposition Decision: 12:13 Condition: Good Prescriptions / Home Meds: New diclofenac sodium 50 mg tablet,delayed release (DR/EC) 50 mg PO Q12H PRN (Reason: pain) Qty: 14 0RF No Action raloxifene [Evista] 60 mg tablet 60 mg PO DAILY rosuvastatin 5 mg tablet 5 mg PO BEDTIME calcium citrate 250 mg calcium tablet 25 mg PO DAILY coQ10 (ubiquinol) [Qunol Galindo CoQ10] 100 mg capsule 100 mg PO DAILY Cranberry Plus Vitamin C 140-100 mg capsule 1 cap PO DAILY estradiol 0.01 % (0.1 mg/gram) cream 0.25 appful vaginal .MWF krill oil 500 mg capsule 1 mg PO DAILY Mag Glycinate 100 mg tablet 100 mg PO BEDTIME MULTITHERA 1 tab PO BID mirabegron [Myrbetriq] 50 mg tablet extended release 24 hr 50 mg PO DAILY potassium 99 mg tablet 99 mg PO DAILY strontium 277 mg PO BEDTIME ascorbic acid (vitamin C) [Acerola C] 500 mg tablet,chewable 500 mg PO DAILY cholecalciferol (vitamin D3) 50 mcg (2,000 unit) tablet 50 mcg PO BEDTIME vitamin E 268 mg (400 unit) capsule 400 mg PO DAILY aspirin [Adult Aspirin Regimen] 81 mg tablet,delayed release (DR/EC) 81 mg PO DAILY DermacinRx Bacillex 10 billion cell capsule 100 mmu cells PO DAILY Print Language: Georgian Instructions: Contusion in Adults (ED), Abdominal Pain (ED) Referrals: CAMILO JEROME [Primary Care Provider, Family Practice] - 1 week Discharge Date/Time: 06/25/25 12:20
[2025-06-25 12:22] VITALS: BP 174/94; PULSE 78; O2SAT 98
== END 2025-06-25 12:20 | disposition home or self-care (01) ==
PROVIDERS: Emergency Provider Emergency Medicine; PCP Family Medicine
DX: S30.1XXA Contusion of abdominal wall, initial encounter (principal); S30.811A Abrasion of abdominal wall, initial encounter; W06.XXXA Fall from bed, initial encounter
CPT/HCPCS: 74176; 99284

== ENCOUNTER 2025-07-07 19:11 | Emergency (ER) | payer MEDICARE, OTHER, SELFPAY ==
[2025-07-07 19:20] VITALS: BP 192/94; PULSE 70; TEMP 37.1; O2SAT 98; BMI 23.9
--- OUTSIDE RECORDS SUMMARY | 2025-07-07 19:20 | XMS_ITS | CCD ---
Author Organization [facility] Care Team Providers Care Director Search Marketing Strategies Name Role Phone PIPER CARLOS Admitting Unavailable [...] JUSTUS, DR PAGE Admitting Unavailable HEMEYER, DR PAGE Attending Unavailable HEMEYER, DR PAGE Consulting Unavailable HEMEYER, DR PAGE Primary Care Unavailable SUSAN MARTINEZ Admitting Unavailable SUSAN MARTINEZ Attending Unavailable SUSAN MARTINEZ Consulting Unavailable JUSTUS, DR PAGE Primary Care Unavailable STEVE QUINTERO Consulting Unavailable Greg Pelayo Attending Unavailable Greg Pelayo Admitting Unavailable Fredrick Jerome Primary Care Unavailable Fredrick Jerome MD Unavailable [phone] Fredrick Jerome MD Primary Care Provider Fredrick Jerome MD Unavailable Fredrick Jerome MD Primary Care Provider Win Brooke MD Unavailable Billie Cruz MD Unavailable FREDRICK JEROME Attending Unavailable FREDRICK JEROME Attending Unavailable FREDRICK JEROME Attending Unavailable Fredrick Jerome MD Primary Care Provider [phone] Allergies Allergy Classification Reported Allergen(s) Allergy Type Date of Onset Reaction(s) Facility (1 source) Sulfonamides (Antibiotic) Drug allergy (disorder) [facility] Repository (10 sources) hydroCHLOROthiazide Drug Allergy 03-02-[address] [facility] Healthcare Medications Current Medications Medication Drug Class(es) [...] 03-22-2023 03-22-2023 Chronic Other aftercare (1 source) senior living (current) use of aspirin; Translations: [PATIENT ACCESS REPRESENTATIVE CURRENT USE OF ASPIRIN] Onset: 08-29-2022 Episodic Other aftercare (1 source) 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; Translations: [OT PATIENT ACCESS REPRESENTATIVE CURRENT DRUG THERAPY] Onset: 08-29-2022 Episodic Other [...] Interpretation Reference Range Facility [facility] 03-12-2025 Albumin [Mass/Vol] 4.0 g/dL Normal 3.6-5.1 [facility] Comment on above: Performed By: #### 1 0231, 2780 #### [facility] [address], [address] [place] [phone] Hot Baller: Jerel Green MD Albumin/Globulin [Mass ratio] 1.6 {ratio} Normal 1.0-2.5 [facility] Comment on above: Performed By: #### 1 0231, 3200 #### [facility] [address], [address] [place] [phone] Hot Baller: Jerel Green MD ALP [Catalytic activity/Vol] 43 U/L Normal 37-153 [facility] Comment on above: Performed By: #### 1 023, 7600 #### [facility] [address], [address] [place] [address] [place]er: Jerel Green MD ALT [Catalytic activity/Vol] 11 U/L Normal 6-29 [facility] Comment on above: Performed By: #### 1 023, 7600 #### [facility] of [address], [address] [place] [address] [place]er: Jerel Green MD AST [Catalytic activity/Vol] 17 U/L Normal 10-35 [facility] Comment on above: Performed By: #### 1 023, 7600 #### [facility] [place] [address] Hot Baller: Jerel Green MD Bilirubin [Mass/Vol] 0.5 mg/dL Normal 0.2-1.2 [facility] Comment on above: Performed By: #### 1 230, 0 #### [facility] [place] [address] Hot [place]er: Jerel Green MD BUN/CREATININE RATIO SEE NOTE: Normal 6-22 [facility] Comment on above: Result Comment: Not Reported: BUN and Creatinine are within reference range. Performed By: #### 1 230, 0 #### [facility] [address], [address] [place] [address] Hot Baller: Jerel Green MD Calcium [Mass/Vol] 9.3 mg/dL Normal 8.6-10.4 [facility] Comment on above: Performed By: #### 1 023, 7600 #### [facility] [place] [address] Hot Baller: Jerel Green MD Chloride [Moles/Vol] 106 mmol/L Normal 98-110 [facility] Comment on above: Performed By: #### 1 023, 7600 #### [facility] of [address], [address] [place] [address] Hot Baller: Jerel Green MD CO2 [Moles/Vol] 30 mmol/L Normal 20-32 [facility] Comment on above: Performed By: #### 1 0231, 7600 #### [facility] of [address], [address] [place] [address] Hot Baller: Jerel Green MD Creatinine [Mass/Vol] 0.93 mg/dL Normal 0.60-1.00 [facility] Comment on above: Performed By: #### 1 0231, 7600 #### [facility] of [address], [address] [place] [address] Hot Baller: Jerel Green MD GFR/1.73 sq M.predicted among non-blacks MDRD (S/P/Bld) [Vol rate/Area] 64 mL/min/{1.73_m2} Normal > OR = 60 [facility] Comment on above: Performed By: #### 1 0231, 7600 #### [facility] of [address], [address] [place] [address] Hot Baller: Jerel Green MD Globulin (S) [Mass/Vol] 2.5 g/dL Normal 1.9-3.7 [facility] Comment on above: Performed By: #### 1 0231, 7600 #### [facility] of [address], [address] [place] [address] Hot Baller: Jerel Green MD Glucose [Mass/Vol] 85 mg/dL Normal 65-99 [facility] Comment on above: Result Comment: Fasting reference interval Performed By: #### 1 0231, 7600 #### [facility] of [address], [address] [place] [address] Hot Baller: Jerel Green MD Potassium [Moles/Vol] 4.0 mmol/L Normal 3.5-5.3 [facility] Comment on above: Performed By: #### 1 0231, 7600 #### [facility] of [address], [address] [place] [address] Hot Baller: Jerel Green MD Protein [Mass/Vol] 6.5 g/dL Normal 6.1-8.1 [facility] Comment on above: Performed By: #### 1 0231, 7600 #### [facility] [place] [address] Hot Baller: Jerel Green MD Sodium [Moles/Vol] 141 mmol/L Normal 135-146 [facility] Comment on above: Performed By: #### 1 0231, 7600 #### [facility] [place] [address] Hot Baller: Jerel Green MD Urea nitrogen [Mass/Vol] 22 mg/dL Normal 7-25 [facility] Comment on above: Performed By: #### 1 0231, 7600 #### [facility] [place] [address] Hot Baller: Jerel Green MD LIPID PANEL, [address] Cholesterol [Mass/Vol] 241 mg/dL High <200 [facility] Comment on above: Order Comment: FASTI NG:YES FASTING: YES Performed By: #### 1 0231, 7600 #### [facility] of [place] [address] Hot Baller: Jerel Green MD Cholesterol in HDL [Mass/Vol] 80 mg/dL Normal > OR = 50 [facility] Comment on above: Order Comment: FASTI NG:YES FASTING: YES Performed By: #### 1 0231, 7600 #### [facility] of [place] [address] Hot Baller: Jerel Green MD Cholesterol in LDL [Mass/Vol] [...] LDL-C. Arjun SS et al. TYE. 2013;310(19): 7431-4344 (http://education.Grouply.Hangtime/faq/QQT475) Performed By: #### 1 230, 0 #### [facility] [address], [address] [place] [address] Hot Baller: Jerel Green MD Cholesterol.total/C holesterol in HDL [Mass ratio] 3.0 {ratio} Normal <5.0 [facility] Comment on above: Order Comment: FASTI NG:YES FASTING: YES Performed By: #### 1 023, 7599 #### [facility] [place] [address] Hot Baller: Jerel Green MD NON HDL CHOLESTEROL 161 mg/dL (calc) High <130 [facility] Comment on above: Order Comment: FASTI NG:YES FASTING: YES Result Comment: For patients with diabetes plus 1 major ASCVD risk factor, treating to a non-HDL-C goal of <100 mg/dL (LDL-C of <70 mg/dL) is considered a therapeutic option. Performed By: #### 1 023, 0 #### [facility] [place] [address] Hot Baller: Jerel Green MD Triglyceride [Mass/Vol] 103 mg/dL Normal <150 [facility] Comment on above: Order Comment: FASTI NG:YES FASTING: YES Performed By: #### 1 023, 0 #### [facility] [place] [address] Hot Baller: Jerel Green MD CBC AUTO DIFFon 08-27-2022 BASO # 0.0 103/ul Normal 0.0-0.1 [facility] Comment on above: Performed By: #### C BC #### [facility] [address] [address] [address] Daniel Hester Basophils/100 WBC (Bld) 0.4 % Normal 0.2-2.0 [facility] Comment on above: Performed By: #### C BC #### [facility] [address] [place] [address] Dr. Daniel Hester EO # 0.2 103/ul Normal 0.0-0.7 [facility] Comment on above: Performed By: #### C BC #### [facility] [address] [place] [address] Dr. Daniel Hester Eosinophils/100 WBC (Bld) 2.7 % Normal 0.9-7.0 [facility] Comment on above: Performed By: #### C BC #### [facility] [address] [place] [address] Dr. Daniel Hester Erythrocyte distribution width (RBC) [Ratio] 13.3 % Normal 11.0-15.0 [facility] Comment on above: Performed By: #### C BC #### [facility] [address] [place] [address] Dr. Daniel Hester Hematocrit (Bld) [Volume fraction] 38.8 % Normal 36.0-48.0 [facility] Comment on above: Performed By: #### C BC #### [facility] [address] [place] [address] Dr. Daniel Hester Hemoglobin (Bld) [Mass/Vol] 13.0 g/dL Normal 12.0-16.0 [facility] Comment on above: Performed By: #### C BC #### [facility] [address] [place] [address] Dr. Daniel Hester IG # 0.01 10e3/ul Normal 0.00-0.03 [facility] Comment on above: Performed By: #### C BC #### [facility] [address] [place] [address] Dr. Daniel Hester IG % 0.1 % Normal 0.0-0.5 [facility] Comment on above: Performed By: #### C BC #### [facility] [address] [place] [address] Dr. Daniel Hester LYMPH # 2.5 103/ul Normal 1.2-3.8 [facility] Comment on above: Performed By: #### C BC #### [facility] [address] [place] [address] Dr. Daniel Hester Lymphocytes/100 WBC (Bld) 36.6 % Normal 20.5-60.0 [facility] Comment on above: Performed By: #### C BC #### [facility] [address] [place] [address] Dr. Daniel Hester MANUAL DIFF REQ NO Normal [facility] Comment on above: Performed By: #### C BC #### [facility] [address] [place] [address] Dr. Daniel Hester MCH (RBC) [Entitic mass] 31.7 pg Normal 26.7-34.0 [facility] Comment on above: Performed By: #### C BC #### [facility] [address] [place] [address] Dr. Daniel Hester MCHC (RBC) [Mass/Vol] 33.5 g/dL Normal 29.9-35.2 [facility] Comment on above: Performed By: #### C BC #### [facility] [address] [place] [address] Dr. Daniel Hester MCV (RBC) [Entitic vol] 94.6 fL Normal 81.0-99.0 [facility] Comment on above: Performed By: #### C BC #### [facility] [address] [place] [address] Dr. Daniel Hester MONO # 0.4 103/ul Normal 0.3-0.8 [facility] Comment on above: Performed By: #### C BC #### [facility] [address] [place] [address] Dr. Daniel Hester Monocytes/100 WBC (Bld) 6.4 % Normal 1.7-12.0 [facility] Comment on above: Performed By: #### C BC #### [facility] [address] [place] [address] Dr. Daniel Hester NEUT # 3.6 103/ul Normal 1.4-6.5 [facility] Comment on above: Performed By: #### C BC #### [facility] [address] [address] [address] Daniel Hester Neutrophils/100 WBC (Bld) 53.8 % Normal 43.0-75.0 [facility] Comment on above: Performed By: #### C BC #### [facility] [address] [address] [address] Daniel Hester Platelet mean volume (Bld) [Entitic vol] 10.9 fL Normal 9.5-13.5 [facility] Comment on above: Performed By: #### C BC #### [facility] [address] [address] [address] Daniel Hester PLT 217 103/ul Normal 150-450 [facility] Comment on above: Performed By: #### C BC #### [facility] [address] [place] [address] Dr. Daniel Hester RBC 4.10 106/ul Critically low 4.20-5.40 [facility] Comment on above: Performed By: #### C BC #### [facility] [address] [place] [address] Dr. Daniel Hester WBC 6.7 103/ul Normal 4.0-11.0 [facility] Comment on above: Performed By: #### C BC #### [facility] [address] [place] [address] HEAD WO CONon [...] STEVE QUINTERO Date: 2022-08-27 14:38 Normal [facility] PROF CHEM 8 (BAS METB)on Anion gap [Moles/Vol] 8.7 mmol/L Normal [facility] Comment on above: Performed By: #### B MP, HSTROPN #### [facility] [address] [place] [address] Dr. Daniel Hester Calcium [Mass/Vol] 9.7 mg/dL Normal 8.5-10.1 [facility] Comment on above: Performed By: #### B HARESH, HSTROPN #### [facility] [address] [place] [address] Dr. Daniel Hester Chloride [Moles/Vol] 104 mmol/L Normal 98-107 [facility] Comment on above: Performed By: #### B HARESH, HSTROPN #### [facility] [address] [address] [address] Daniel Hester CO2 [Moles/Vol] 29.6 mmol/L Normal 21.0-32.0 [facility] Comment on above: Performed By: #### B HARESH, HSTROPN #### [facility] [address] [place] [address] Dr. Daniel Hester Creatinine [Mass/Vol] 1.00 mg/dL Normal 0.55-1.02 [facility] Comment on above: Performed By: #### B MP, HSTROPN #### [facility] [address] [address] [address] Daniel Hester EGFR-AF [place] >60 Normal >=60 [facility] Comment on above: Performed By: #### B HARESH, HSTROPN #### [facility] [address] [address] [address] Daniel Hester EGFR-NON AF [place] 55 mL/min/1.73m2 Critically low >=60 [facility] Comment on above: Performed By: #### B MP, HSTROPN #### [facility] [address] [address] [address] Daniel Hester Glucose [Mass/Vol] 98 mg/dL Normal 74-106 [facility] Comment on above: Performed By: #### B MP, HSTROPN #### [facility] [address] [place] [address] Dr. Daniel Hester Potassium [Moles/Vol] 3.3 mmol/L Critically low 3.5-5.1 [facility] Comment on above: Performed By: #### B MP, HSTROPN #### [facility] [address] [place] [address] Dr. Daniel Hester Sodium [Moles/Vol] 139 mmol/L Normal 136-145 [facility] Comment on above: Performed By: #### B MP, HSTROPN #### [facility] [address] [place] [address] Dr. Daniel Hester Urea nitrogen [Mass/Vol] 15.0 mg/dL Normal 7.0-18.0 [facility] Comment on above: Performed By: #### B MP, HSTROPN #### [facility] [address] [place] [address] Dr. Daniel Hester Urea nitrogen/Creatinine [Mass ratio] 15.0 mg/mg Normal [facility] Comment on above: Performed By: #### B MP, HSTROPN #### [facility] [address] [place] [address] Dr. Daniel Hester TROPONIN, HIGH SENSITIVITYon 08-27-2022 HSTROP 21.7 pg/mL Normal 4.0-51.3 [facility] Comment on above: Result Comment: CUT- OFF POINTS HAVE BEEN ESTABLISHED BASED ON THE FOURTH UNIVERSAL DEFINITIONS OF MYOCARDIAL INFARCTION. THE UPPER REFERENCE LIMIT (URL) OF TROPONIN, DEFINED THE 99TH PERCENTILE OF cTnI DISTRIBUTION IN A REFERENCE POPULATION, HAS BEEN CONFIRMED THE DECISION THRESHOLD FOR DE DIAGNOSIS. Performed By: #### B MP, HSTROPN #### [facility] [address] [place] [address] Dr. Daniel Hester MG MAMM SCREEN 3D RADHA CADon 07-07-2022 MG MAMM SCREEN 3D RADHA CAD Patient: KRISTAN BARKER Exam Date: 07/07/2022 : 1950 Gender:F Ordering : DR FREDRICK JEROME . Admission #: [id number] Family : Order #: [id number] CLICK HERE TO VIEW EXAM RADIOLOGY REPORT [...] Treatments None Family Cancers None LOCATION: [facility] BREAST COMPOSITION: Scattered areas fibroglandular density. FINDINGS: [...] M.D. on 07/07/2022 at 12:35 Normal [facility] XR DEXA BONE DENSITYon 07-07 XR [...] WILVER DEJESUS Date: 2022-07-07 11:51 Normal [facility] CT HEAD WO CONon 04-11-2022 CT [...] WILVER DEJESUS Date: 2022-04-11 11:00 Normal [facility] XR KNEE LT 4V or >on [...] KARLA MERLOS Date: 2022-04-11 09:45 Normal [facility] Covid-19 PCR (CVDTB)on 09-30 SARS-CoV-2 (COVID-19) RNA RAMIRO+probe Ql (Unsp spec) Not detected Normal NOT DETECTED [facility] Comment on above: Result Comment: This test is not yet approved or cleared by the [place] FDA. When there are no FDA-approved or cleared tests available, and other criteria are met, FDA can make tests available under an emergency access mechanism called an Emergency Use Authorization (EUA). The EUA for this test is supported by the [place] of Health and Human Service's (HHS's) declaration [...] consistent with SARS-CoV-2. Performed By: #### C [facility] #### [facility] [address] [place] [address] Dr. Daniel Hester Vital Signs Date Time Vital Sign Value Performing Clinician Conor gagnon 05-05-2025 14:33-0400 Body height 167.6 cm Fredrick Jerome MD Work Phone: [facility] 05-05-2025 14:33-0400 Body mass index (BMI) [Ratio] 24.05 kg/m2 Fredrick Jerome MD Work Phone: [facility] 05-05-2025 14:33-0400 Body weight 67.59 kg Fredrick Jerome MD Work Phone: [facility] 05-05-2025 14:33-0400 Diastolic blood pressure 76 mm[Hg] Fredrick Jerome MD Work Phone: [facility] 05-05-2025 14:33-0400 Heart rate 59 /min Fredrick Jerome MD Work Phone: [facility] 05-05-2025 14:33-0400 SaO2% (BldA) [Mass fraction] 96 % Fredrick Jerome MD Work Phone: [facility] 05-05-2025 14:33-0400 Systolic blood pressure 126 mm[Hg] Fredrick Jerome MD Work Phone: [facility] 03-17-2025 08:03-0400 Body mass index (BMI) [Ratio] 23.4 kg/m2 Fredrick Jerome MD Work Phone: [facility] 03-17-2025 08:03-0400 Body weight 65.77 kg Fredrick Jerome MD Work Phone: [facility] 03-17-2025 08:03-0400 Diastolic blood pressure 72 mm[Hg] Fredrick Jerome MD Work Phone: [facility] 03-17-2025 08:03-0400 Heart rate 70 /min Fredrick Jerome MD Work Phone: [facility] 03-17-2025 08:03-0400 SaO2% (BldA) [Mass fraction] 95 % Fredrick Jerome MD Work Phone: [facility] 03-17-2025 08:03-0400 Systolic blood pressure 126 mm[Hg] Fredrick Jerome MD Work Phone: [facility] 09-16-2024 09:00-0500 Body height 167.6 cm Fredrick Jerome MD Work Phone: [facility] 09-16-2024 09:00-0500 Body mass index (BMI) [Ratio] 24.45 kg/m2 Fredrick Jerome MD Work Phone: [facility] 09-16-2024 09:00-0500 Body weight 68.72 kg Fredrick Jerome MD Work Phone: [facility] 09-16-2024 09:00-0500 Diastolic blood pressure 70 mm[Hg] Fredrick Jerome MD Work Phone: [facility] 09-16-2024 09:00-0500 Heart rate 67 /min Fredrick Jerome MD Work Phone: [facility] 09-16-2024 09:00-0500 SaO2% (BldA) [Mass fraction] 97 % Fredrick Jerome MD Work Phone: [facility] 09-16-2024 09:00-0500 Systolic blood pressure 126 [...] Start: 10-24-2023 End: 10-24-2023 ambulatory Greg Pelayo Facility:[facility] Start: 08-27-2022 End: 08-27-2022 ambulatory SUSAN MARTINEZ [...] [facility] [address] [facility] [address] [place] [phone] Fredrick Jerome MD [address] [facility] [address] [place] [address] (Fax) [facility] Start: [...] Office Visit [facility] [address] [address] [place] [phone] Fredrick Jerome MD [address] [place] [address] (Fax) Essential hypertension (CMS/HCC); Hypertensive nephropathy (CMS/HCC); Stage 2 chronic kidney disease; Microalbuminuria; Mixed dyslipidemia (CMS/HCC) [facility] Comment on above: Essential hypertensi on (CMS/HCC); Hypertensive nephropathy (CMS/HCC); Stage 2 chronic kidney disease; Microalbuminuria; Mixed dyslipidemia (CMS/HCC) Start: 03-10-2025 End: 03-10-2025 Patient encounter procedure 03/10/2025 8:00 AM EDT Office Visit [facility] [address] [address] [place] [phone] Fredrick Jerome MD [address] [facility] 100 [place] [address] (Fax) [facility] Start: 02-14-2025 End: 09-16-2025 Comprehensive metabolic 2000 panel - Serum or Plasma Comprehensive metabolic panel Lab Routine Essential hypertension (CMS/HCC) Hypertensive nephropathy (CMS/HCC) Stage 2 chronic kidney disease Expected: 02/14/2025, Expires: 09/16/2025 [facility] Work Phone: Comment on above: Expected: 02/14/2025 , Expires: 09/16/2025 Start: 02-14-2025 End: 09-16-2025 Lipid 1996 panel - Serum or Plasma Lipid panel Lab Routine Mixed dyslipidemia (CMS/HCC) Expected: 02/14/2025, Expires: 09/16/2025 [facility] Comment on above: Expected: 02/14/2025 , Expires: 09/16/2025 Start: 09-16-2024 End: 09-16-2024 Patient encounter procedure 09/16/2024 9:00 AM EST Office Visit [facility] [address] [phone] Fredrick Jerome MD 112 [facility] 100 [place] [address] (Fax) Essential hypertension (CMS/HCC); Hypertensive nephropathy (CMS/HCC); Stage 2 chronic kidney disease; Microalbuminuria; Mixed dyslipidemia (CMS/HCC) [facility] Comment on above: Essential hypertensi on (CMS/HCC); Hypertensive nephropathy (CMS/HCC); Stage 2 chronic kidney disease; Microalbuminuria; Mixed dyslipidemia ([facility]/HCC) Start: 06-29-2024 Influenza vaccination Influenza Vacc ine (#1) [facility] Start: 1950 Screening for malign ant neoplasm of colon [facility] Immunizations Immunization Date Immunization Notes Care Provider Fa cility 11-14-2024 influenza, high dose seasonal, preservative-free Fredrick Jerome MD Work Phone: [facility] 11-14-2024 influenza virus vacc ine, unspecified formulation Fredrick Jerome MD Work Phone: [facility] 09-26-2023 RSV, recombinant, pr otein subunit RSVpreF, adjuvant reconstitu, 120mcg/0.5mL, PF (Arexvy) Fredrick Jerome MD Work Phone: [facility] 08-30-2023 zoster vaccine recombinant E chava Jerome MD Work Phone: [facility] 08-03-2023 Influenza, Seasonal, Quadrivalent, Adjuvanted Fredrick Jerome MD Work Phone: [facility] 08-03-2023 influenza virus vacc ine, unspecified formulation Fredrick Jerome MD Work Phone: [facility] 05-19-2023 zoster vaccine recombinant E chava Jerome MD Work Phone: [facility] 09-06-2022 Influenza, High-dose Seasonal, Quadrivalent, Preservative Free Fredrick Jerome MD Work Phone: [facility] 08-03-2021 Influenza, High-dose Seasonal, Quadrivalent, Preservative Free Fredrick Jerome MD Work Phone: [facility] 07-31-2020 influenza, high dose seasonal, preservative-free Fredrick Jerome MD Work Phone: [facility] 09-15-2019 influenza, high dose seasonal, preservative-free Fredrick Jerome MD Work Phone: [facility] 08-07-2018 influenza, high dose seasonal, preservative-free Fredrick Jerome MD Work Phone: [facility] 09-03-2017 influenza, injectabl e, quadrivalent, preservative free Fredrick Jerome MD Work Phone: [facility] 05-08-2017 pneumococcal polysaccharide vaccine, 23 valent Fredrick Jerome MD Work Phone: [facility] 09-18-2016 influenza, injectabl e, quadrivalent, preservative free Fredrick Jerome MD Work Phone: [facility] 03-09-2016 pneumococcal polysaccharide vaccine, 23 valent Fredrick Jerome MD Work Phone: [facility] 03-02-2016 pneumococcal conjuga te vaccine, 13 valent Fredrick Jerome MD Work Phone: [facility] 10-08-2015 influenza, seasonal, injectable, preservative free Fredrick Jerome MD Work Phone: [facility] 08-13-2013 seasonal influenza, intradermal, preservative free Fredrick Jerome MD Work Phone: [facility] Healthcare Payers Date Payer Category Payer Self-pay 2023 Private Health Insurance [facility] [id number] 2015 Medicare MEDICARE [id number] 5 1959 Medicare [id number] 1959 Unknown [id number] 1950 Unknown [id number] .2.593 1950 Unknown [id number] [id number] .2.593 1950 Unknown [id number] [id number] .2.593 1950 Unknown [id number] .2.593 1950 Unknown [id number] 2.16.840.1.592901.3.579 .2.1259 1950 Unknown [id number] [id number] .2.1259 1950 Unknown [id number] [id number] .2.1259 Unknown [id number] [id number] .2.531 Social History Date Type Detail Facility [...] to any clubs or organizations such as mormonism groups, unions, fraternal or athletic groups, or [...] Not at all [facility] (I/We) worried [facility] (my/our) food would run out before [...] not going to see her dr in [place] anymore for urology because all they fill for her is her estradiol cream and had offered to take it over and that she was supposed to call when she was ready for it. She would like to know if you can send this to [facility]. I have it pended if it is okay documented in this encounter [facility] Telephone encounter Note 05-28-2025 Telephone Encounter - Ana Paula Chaidez MA - 05/28/2025 3:24 PM EDT Note Date & Type Note Facility 05-28-2025 Telephone encount er Note Idalia called and stated she had previously talked to that she was not going to see her dr in [place] anymore for urology because all they fill for her is her estradiol cream and had offered to take it over and that she was supposed to call when she was ready for it. She would like to know if you can send this to [facility]. 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 Hearing Screening: Not done Cognitive Screening Self [...] Osteopenia Pneumonia 11/2017 didn't stay overnight in [place], was on bedrest for two weeks Rotator cuff syndrome Urinary tract infection Vitamin D deficiency SURGICAL HISTORY: Past Surgical History: Procedure Laterality Date COLONOSCOPY 04/2018 IN ARTHROCENTESIS ASPIR&/INJ MAJOR JT/BURSA W/O US TOTAL [...] score (Chris FIELD, et al., 2019, 2020 [employer]) returns the percentage [...] tablet; Refill: 1 documented in this encounter [facility] Healthcare Evaluation note Note Date & Type Note Facility Evaluation note Diagnosis Essential hypertension (CMS/HCC) Unspecified essential hypertension Hypertensive nephropathy (CMS/HCC) Unspecified hypertensive kidney disease with chronic kidney disease stage I through stage IV, or unspecified Stage 2 chronic kidney disease Microalbuminuria Proteinuria Mixed dyslipidemia (CMS/HCC) Osteopenia of spine documented in this encounter [facility] Healthcare Evaluation note Note Date & Type Note Facility Evaluation note Diagnosis Essential hypertension (CMS/HCC) Unspecified essential hypertension Hypertensive nephropathy (CMS/HCC) Unspecified hypertensive kidney disease with chronic kidney disease stage I through stage IV, or unspecified Stage 2 chronic kidney disease Microalbuminuria Proteinuria Mixed dyslipidemia (CMS/HCC) Osteopenia of spine documented in this encounter [facility] Healthcare Evaluation note Note Date & Type [...] Documents on File Type Date Recorded Patient Director Financial Systems Expl anation Advance Directives and Living Will 06/09/2019 2019-06-05 Advance Directives Additional Source Comments INFORMATION SOURCE (unrecogn ized section and content) DATE CREATED AUTHOR 08/29/2022 [facility] DATE CREATED AUTHOR AUTHOR'S ORGANIZ ATION 11/17/2023 [facility] DATE CREATED AUTHOR AUTHOR'S ORGANIZ ATION 03/14/2025 [facility] DATE CREATED AUTHOR AUTHOR'S ORGANIZ ATION 05/09/2025 [facility] Care Teams (unrecognized sec tion and content) Director Search Marketing Strategies Relationship Specialty Start Date End Date Fredrick Jerome MD [address] [place] [address] (Fax) PCP - ACO Reach 03/22/23 Fredrick Jerome MD [address] [place] [address] (Fax) PCP - General Family Medicine 03/28/23 Director Search Marketing Strategies Relationship Specialty Start Date End Date Fredrick Jerome MD [address] [place] [phone] (Fax) PCP - ACO Reach 03/22/23 Fredrick Jerome MD [address] [place] [address] (Fax) PCP - General Family Medicine 03/28/23 Director Search Marketing Strategies Relationship Specialty Start Date End Date Fredrick Jerome MD [address] [place] [address] (Fax) PCP - ACO Reach 03/22/23 Fredrick Jerome MD [address] [place] [address] (Fax) PCP - General Family Medicine 03/28/23 Win Brooke MD [address] [place] [phone] Referring Physician Optometry 03/02/25 Billie Cruz MD [address] [place] [address], [address] [place] [address] Referring Physician Retina Ophthalmology 03/02/25 Director Search Marketing Strategies Relationship Specialty Start Date End Date Fredrick Jerome MD [address] [facility] [address] [place] [address] (Fax) PCP - ACO Reach 03/22/23 Fredrick Jerome MD [address] [place] [address] (Fax) PCP - General Family Medicine 03/28/23 Win Brooke MD [address] [place] [phone] Referring Physician Optometry 03/02/25 Billie Cruz MD [address] [place] [address], [address] [place] [address] Referring Physician Retina Ophthalmology 03/02/25 Director Search Marketing Strategies Relationship Specialty Start Date End Date Fredrick Jerome MD [address] [place] [address] (Fax) PCP - ACO Reach 03/22/23 Fredrick Jerome MD [address] [phone] (Fax) PCP - General Family Medicine 03/28/23 Win Brooke MD [address] [place] [address] Referring Physician Optometry 03/02/25 Billie Cruz MD [address] [place] [address], [address] [place] [address] Referring Physician Retina Ophthalmology 03/02/25 Director Search Marketing Strategies Relationship Specialty Start Date End Date Fredrick Jerome MD [address] [phone] (Fax) PCP - ACO Reach 03/22/23 Fredrick Jerome MD [address] [address] (Fax) PCP - General Family Medicine 05/05/25 Win Brooke MD [address] [place] [address] Referring Physician Optometry 03/02/25 Billie Cruz MD [address] [place] [address], [address] [place] [address] Referring Physician Retina Ophthalmology 03/02/25 Director Search Marketing Strategies Relationship Specialty Start Date End Date Fredrick Jerome MD [address] [phone] (Fax) PCP - ACO Reach 03/22/23 Fredrick Jerome MD [address] [facility] [address] [place] [address] PCP - General Family Medicine 05/05/25 Win Brooke MD [address] [place] [address] Referring Physician Optometry 03/02/25 Billie Cruz MD [address] [place] [address], [address] [place] [address] Referring Physician Retina Ophthalmology 03/02/25 [...] BE BASED ON THE PRIMARY CLINICAL RECORDS. [facility]. provides no warranty or guarantee of the accuracy or completeness of information in this document.
--- NOTE | 2025-07-07 20:09 | XR_ITS ---
The [address] [address] Patient Name: YANELY DOUGLASS MRN: [id number] date: 1950 Sex: F Assigned Patient Location: ER Current Patient Location: ER Accession/Order Number: [id number] Exam Date: 07/07/2025 20:25 Report Date: 07/07/2025 20:56 At the request of: SARAH KANG Procedure: XR ribs RT 2V 2 views right wrist INDICATION: Right chest wall pain status post fall FINDINGS: Unremarkable cardiac mediastinal. Lungs are clear. No definite acute displaced rib fracture. No definite pleural thickening or effusion or pneumothorax. Multilevel degenerative changes of the thoracic spine. XR/XR ribs RT 2V IMPRESSION: Negative acute displaced rib fractures. Impression dictated by: Pasquale Zaragoza M.D. 07/07/2025 8:56 PM Dictation Location: [place] [address] Electronically authenticated by: [id number] Y Date: 07/07/2025 20:56
--- NOTE | 2025-07-07 20:15 | ED.GENADUL1 ---
Documented by User: JORGE LUIS Trinidad 07/08/25 08:39 HPI HPI - General Adult General Chief complaint: Back Pain/Injury Stated complaint: BACK PAIN Time Seen by Provider: 07/07/25 19:54 Source: patient Mode of arrival: walk-in History of Present Illness HPI narrative: Patient is a 74-year-old female that presents with complaints of right lateral and posterior chest wall pain and spasms after she fell out of bed onto the right side onto some metal steps that go down her bed. She was evaluated here on 06/25 and diagnosed with an abdominal wall contusion. She was discharged with diclofenac and Norflex. She states that the Norflex does help sometimes but she is here today for uncontrolled pain. The pain is worse with inspiration, laughing, and sneezing. She is on aspirin 81 mg. She denies any abdominal pain, nausea, vomiting, or diarrhea. Her PCP did give her Norflex, she did take 100 mg of that today and 1000 mg of Tylenol with no relief of her pain prior to coming here. She did go to her chiropractor as well without relief of her pain. Related Data Home Medications ?Medication ?Instructions ?Recorded ?Confirmed Lactobacillus acidophilus 10 100 mmu cells PO DAILY 06/25/25 06/25/25 billion cell capsule (DermacinRx Bacillex) MULTITHERA 1 tab PO BID 06/25/25 06/25/25 ascorbic acid (vitamin C) 500 mg 500 mg PO DAILY 06/25/25 06/25/25 chewable tablet (Acerola C) aspirin 81 mg tablet,delayed 81 mg PO DAILY 06/25/25 06/25/25 release (Adult Aspirin Regimen) calcium citrate 25 mg PO DAILY 06/25/25 06/25/25 cholecalciferol (vitamin D3) 50 50 mcg PO BEDTIME 06/25/25 06/25/25 mcg (2,000 unit) tablet coQ10 (ubiquinol) 100 mg capsule 100 mg PO DAILY 06/25/25 06/25/25 (Qunol Galindo CoQ10) cranberry concentrate-ascorbic 1 cap PO DAILY 06/25/25 06/25/25 acid 140 mg-100 mg capsule (Cranberry Plus Vitamin C) estradiol 0.01% (0.1 mg/gram) 0.25 appful vaginal .MWF 06/25/25 06/25/25 vaginal cream krill oil 500 mg capsule 1 mg PO DAILY 06/25/25 06/25/25 magnesium glycinate 100 mg (as 100 mg PO BEDTIME 06/25/25 06/25/25 glycinate) tablet (Mag Glycinate) mirabegron 50 mg tablet,extended 50 mg PO DAILY 06/25/25 06/25/25 release 24 hr (Myrbetriq) potassium 99 mg tablet 99 mg PO DAILY 06/25/25 06/25/25 raloxifene 60 mg tablet (Evista) 60 mg PO DAILY 06/25/25 06/25/25 rosuvastatin 5 mg tablet 5 mg PO BEDTIME 06/25/25 06/25/25 strontium 277 mg PO BEDTIME 06/25/25 06/25/25 vitamin E 268 mg (400 unit) capsule 400 mg PO DAILY 06/25/25 06/25/25 orphenadrine citrate 100 mg mg PO 07/07/25 tablet,extended release Previous Rx's ?Medication ?Instructions ?Recorded diclofenac sodium 50 mg 50 mg PO Q12H PRN pain #14 tabs 06/25/25 tablet,delayed release lidocaine 5 % topical patch 1 patch topical Q24H #15 ea 07/07/25 (Lidoderm) methocarbamol 500 mg tablet 500 mg PO TID PRN muscle spasms 07/07/25 #20 tabs methylprednisolone 4 mg tablets in 4 mg PO DAILY #1 ea 07/07/25 a dose pack (Medrol (Yared)) Allergies Allergy/AdvReac Type Severity Reaction Status Date / Time No Known Drug Allergies Allergy Verified 06/25/25 10:09 Opioid HPI Opioid Management Most Recent Opioid Data: Last Pain Scale 8 07/07/25, 20:37 Last MAR Pain Assessment 07/07/25, 20:36 Review of Systems ROS Status of ROS 10 or more systems reviewed and unremarkable except as noted in history and below PFSH PFSH Social History Little interest or pleasure in doing things: not at all Feeling down, depressed, or hopeless: not at all Exam Narrative Exam Narrative: General: No distress but appears uncomfortable, age-appropriate, no signs of trauma on exam Skin: Warm, dry, no pallor. No rash. Head: Normocephalic, atraumatic. Neck: Supple, non-tender. Eye: Pupils are equal, round and EOMI. No scleral icterus. Ears, Nose, Mouth, and Throat: No nasal mucosal hypertrophy. Oral mucosa is moist, no posterior oropharynx erythema, uvula is mid-line Cardiovascular: Regular Rate and Rhythm without murmur, gallop or rub. Respiratory: No accessory muscle use or respiratory distress. Lungs are clear to auscultation, no wheezing, rales or rhonchi Chest Wall: Right Chest wall tenderness, no ecchymosis, no crepitus Back: No midline thoracic or lumbar vertebral tenderness. Musculoskeletal: Full ROM of all extremities, no calf or popliteal tenderness GI: Abdomen is soft, non-distended, non tender to palpation. No masses appreciated. No rebound, guarding, or rigidity noted. Neurological: A&O x4. No cranial nerve dysfunction observed. No truncal ataxia. Moves all extremities. Sensation intact. Psychiatric: Cooperative and interactive. Normal mood and affect. Constitutional Vital Signs, click to edit/add: Last Vital Signs Temp 98.8 F 07/07/25 19:20 Pulse 70 07/07/25 19:20 Resp 16 07/07/25 22:31 BP 156/89 H 07/07/25 22:31 Pulse Ox 98 07/07/25 22:31 O2 Del Method Room Air 07/07/25 22:31 Course Vital Signs Vital signs: Vital Signs Temperature 98.8 F 07/07/25 19:20 Pulse Rate 70 07/07/25 19:20 Respiratory Rate 18 07/07/25 19:20 Blood Pressure 192/94 H 07/07/25 19:20 Pulse Oximetry 98 07/07/25 19:20 Oxygen Delivery Method Room Air 07/07/25 19:20 Temperature 98.8 F 07/07/25 19:20 Pulse Rate 70 07/07/25 19:20 Respiratory Rate 16 07/07/25 22:31 Blood Pressure 156/89 H 07/07/25 22:31 Pulse Oximetry 98 07/07/25 22:31 Oxygen Delivery Method Room Air 07/07/25 22:31 Medical Decision Making MDM Narrative Medical decision making narrative: Patient is a 74-year-old female that presented to the ER for uncontrolled pain after a trip and fall about a week and a half ago getting into her bed and she fell and hit her right chest wall on the metal stairs leading up to her bed. She has been taking 1000 mg of Tylenol and 100 mg of Norflex which originally did help her pain but tonight she is getting a lot of muscle spasms and these medications have not helped. I did order a rib series x-ray to evaluate for any rib fractures. Here are going to give her a Lidoderm patch, [place] 5 mg, and Toradol 30 mg IM to get her pain more under control. Patient is hypertensive, systolic 192, likely from pain as she appears very uncomfortable. She is in no respiratory distress. There are bilateral breath sounds that are equal on exam. She denies any abdominal pain or symptoms such as nausea/vomiting/diarrhea. X-ray ribs negative for fracture or pneumothorax. Patient reevaluated after medications given and appears more comfortable but states that the meds have just made it longer between the spasms. Her pain is more localized now to the CVA area. Unlikely a kidney stone as the pain is palpated over the lumbar paraspinal musculature but she used to get frequent UTI's but hasn't had once in a year. Will check a UA. I did order some Robaxin as well. If UA negative plan will be to discharge on multimodal pain control for back spasms and follow up with her PCP. Care signed out and transferred to Dr Frye at 2200. care transferred at change of shift. UA returned neg. Patient is feeling better and states her pain has disipated. Discharged home to follow up with her doctor Differential Diagnosis Differential Diagnosis: Rib fracture, chest wall contusion Lab Data Labs: Lab Results 07/07/25 Range/Units 21:55 Urine Color Lt. yellow (YELLOW) Urine Clarity Clear (CLEAR) Urine pH 7.0 (5.0-9.0) Ur Specific [place] 1.010 (1.005-1.025) Urine Protein Negative (NEG/TRACE) mg/dL Urine Glucose (UA) Negative (NEGATIVE) mg/dL Urine Ketones Negative (NEGATIVE) mg/dL Urine Occult Blood Negative (NEGATIVE) Urine Nitrite Negative (NEGATIVE) Urine Bilirubin Negative (NEGATIVE) Urine Urobilinogen 0.2 (0.2-1.0) EU/dL Ur Leukocyte Esterase Negative (NEGATIVE) Discharge Plan Discharge Chief Complaint: Back Pain/Injury Clinical Impression: Lumbar back pain, Strain of lumbar region Patient Disposition: Home, Self-Care Condition: Good Mode of Transportation: Private Vehicle Prescriptions / Home Meds: New lidocaine [Lidoderm] 5 % adhesive patch,medicated 1 patch topical Q24H Qty: 15 0RF Rx Instructions: leave on most painful area for up to 12 hrs methocarbamol 500 mg tablet 500 mg PO TID PRN (Reason: muscle spasms) Qty: 20 0RF methylprednisolone [Medrol (Yared)] 4 mg tablets,dose pack 4 mg PO DAILY Qty: 1 0RF No Action orphenadrine citrate 100 mg tablet extended release PO raloxifene [Evista] 60 mg tablet 60 mg PO DAILY rosuvastatin 5 mg tablet 5 mg PO BEDTIME calcium citrate 250 mg calcium tablet 25 mg PO DAILY coQ10 (ubiquinol) [Qunol Galindo CoQ10] 100 mg capsule 100 mg PO DAILY Cranberry Plus Vitamin C 140-100 mg capsule 1 cap PO DAILY estradiol 0.01 % (0.1 mg/gram) cream 0.25 appful vaginal .MWF krill oil 500 mg capsule 1 mg PO DAILY Mag Glycinate 100 mg tablet 100 mg PO BEDTIME MULTITHERA 1 tab PO BID mirabegron [Myrbetriq] 50 mg tablet extended release 24 hr 50 mg PO DAILY potassium 99 mg tablet 99 mg PO DAILY strontium 277 mg PO BEDTIME ascorbic acid (vitamin C) [Acerola C] 500 mg tablet,chewable 500 mg PO DAILY cholecalciferol (vitamin D3) 50 mcg (2,000 unit) tablet 50 mcg PO BEDTIME vitamin E 268 mg (400 unit) capsule 400 mg PO DAILY aspirin [Adult Aspirin Regimen] 81 mg tablet,delayed release (DR/EC) 81 mg PO DAILY DermacinRx Bacillex 10 billion cell capsule 100 mmu cells PO DAILY diclofenac sodium 50 mg tablet,delayed release (DR/EC) 50 mg PO Q12H PRN (Reason: pain) Qty: 14 0RF Print Language: Tristanian Instructions: Muscle Strain (ED), Low Back Strain (ED) Referrals: CAMILO JEROME [Primary Care Provider, Family Practice] - 1 week Discharge Date/Time: 07/07/25 22:33 Documented by User: Nemesio Frye MD 07/12/25 23:15 HPI HPI - General Adult General Chief complaint: Back Pain/Injury Stated complaint: BACK PAIN Time Seen by Provider: 07/07/25 19:54 Related Data Home Medications ?Medication ?Instructions ?Recorded ?Confirmed Lactobacillus acidophilus 10 100 mmu cells PO DAILY 06/25/25 06/25/25 billion cell capsule (DermacinRx Bacillex) MULTITHERA 1 tab PO BID 06/25/25 06/25/25 ascorbic acid (vitamin C) 500 mg 500 mg PO DAILY 06/25/25 06/25/25 chewable tablet (Acerola C) aspirin 81 mg tablet,delayed 81 mg PO DAILY 06/25/25 06/25/25 release (Adult Aspirin Regimen) calcium citrate 25 mg PO DAILY 06/25/25 06/25/25 cholecalciferol (vitamin D3) 50 50 mcg PO BEDTIME 06/25/25 06/25/25 mcg (2,000 unit) tablet coQ10 (ubiquinol) 100 mg capsule 100 mg PO DAILY 06/25/25 06/25/25 (Qunol Galindo CoQ10) cranberry concentrate-ascorbic 1 cap PO DAILY 06/25/25 06/25/25 acid 140 mg-100 mg capsule (Cranberry Plus Vitamin C) estradiol 0.01% (0.1 mg/gram) 0.25 appful vaginal .MWF 06/25/25 06/25/25 vaginal cream krill oil 500 mg capsule 1 mg PO DAILY 06/25/25 06/25/25 magnesium glycinate 100 mg (as 100 mg PO BEDTIME 06/25/25 06/25/25 glycinate) tablet (Mag Glycinate) mirabegron 50 mg tablet,extended 50 mg PO DAILY 06/25/25 06/25/25 release 24 hr (Myrbetriq) potassium 99 mg tablet 99 mg PO DAILY 06/25/25 06/25/25 raloxifene 60 mg tablet (Evista) 60 mg PO DAILY 06/25/25 06/25/25 rosuvastatin 5 mg tablet 5 mg PO BEDTIME 06/25/25 06/25/25 strontium 277 mg PO BEDTIME 06/25/25 06/25/25 vitamin E 268 mg (400 unit) capsule 400 mg PO DAILY 06/25/25 06/25/25 orphenadrine citrate 100 mg mg PO 07/07/25 tablet,extended release Previous Rx's ?Medication ?Instructions ?Recorded diclofenac sodium 50 mg 50 mg PO Q12H PRN pain #14 tabs 06/25/25 tablet,delayed release lidocaine 5 % topical patch 1 patch topical Q24H #15 ea 07/07/25 (Lidoderm) methocarbamol 500 mg tablet 500 mg PO TID PRN muscle spasms 07/07/25 #20 tabs methylprednisolone 4 mg tablets in 4 mg PO DAILY #1 ea 07/07/25 a dose pack (Medrol (Yared)) Allergies Allergy/AdvReac Type Severity Reaction Status Date / Time No Known Drug Allergies Allergy Verified 06/25/25 10:09 Opioid HPI Opioid Management Most Recent Opioid Data: Last Pain Scale 8 07/07/25, 20:37 Last MAR Pain Assessment 07/07/25, 20:36 PFSH PFSH Social History Little interest or pleasure in doing things: not at all Feeling down, depressed, or hopeless: not at all Exam Constitutional Vital Signs, click to edit/add: Last Vital Signs Temp 98.8 F 07/07/25 19:20 Pulse 70 07/07/25 19:20 Resp 16 07/07/25 22:31 BP 156/89 H 07/07/25 22:31 Pulse Ox 98 07/07/25 22:31 O2 Del Method Room Air 07/07/25 22:31 Course Vital Signs Vital signs: Vital Signs Temperature 98.8 F 07/07/25 19:20 Pulse Rate 70 07/07/25 19:20 Respiratory Rate 18 07/07/25 19:20 Blood Pressure 192/94 H 07/07/25 19:20 Pulse Oximetry 98 07/07/25 19:20 Oxygen Delivery Method Room Air 07/07/25 19:20 Temperature 98.8 F 07/07/25 19:20 Pulse Rate 70 07/07/25 19:20 Respiratory Rate 16 07/07/25 22:31 Blood Pressure 156/89 H 07/07/25 22:31 Pulse Oximetry 98 07/07/25 22:31 Oxygen Delivery Method Room Air 07/07/25 22:31 Medical Decision Making MDM Narrative Medical decision making narrative: Patient is a 74-year-old female that presented to the ER for uncontrolled pain after a trip and fall about a week and a half ago getting into her bed and she fell and hit her right chest wall on the metal stairs leading up to her bed. She has been taking 1000 mg of Tylenol and 100 mg of Norflex which originally did help her pain but tonight she is getting a lot of muscle spasms and these medications have not helped. I did order a rib series x-ray to evaluate for any rib fractures. Here are going to give her a Lidoderm patch, [place] 5 mg, and Toradol 30 mg IM to get her pain more under control. Patient is hypertensive, systolic 192, likely from pain as she appears very uncomfortable. She is in no respiratory distress. There are bilateral breath sounds that are equal on exam. She denies any abdominal pain or symptoms such as nausea/vomiting/diarrhea. X-ray ribs negative for fracture or pneumothorax. Patient reevaluated after medications given and appears more comfortable but states that the meds have just made it longer between the spasms. Her pain is more localized now to the CVA area. Unlikely a kidney stone as the pain is palpated over the lumbar paraspinal musculature but she used to get frequent UTI's but hasn't had once in a year. Will check a UA. I did order some Robaxin as well. If UA negative plan will be to discharge on multimodal pain control for back spasms and follow up with her PCP. care transferred at change of shift. UA returned neg. Patient is feeling better and states her pain has disipated. Discharged home to follow up with her doctor Lab Data Labs: Lab Results 07/07/25 Range/Units 21:55 Urine Color Lt. yellow (YELLOW) Urine Clarity Clear (CLEAR) Urine pH 7.0 (5.0-9.0) Ur Specific [place] 1.010 (1.005-1.025) Urine Protein Negative (NEG/TRACE) mg/dL Urine Glucose (UA) Negative (NEGATIVE) mg/dL Urine Ketones Negative (NEGATIVE) mg/dL Urine Occult Blood Negative (NEGATIVE) Urine Nitrite Negative (NEGATIVE) Urine Bilirubin Negative (NEGATIVE) Urine Urobilinogen 0.2 (0.2-1.0) EU/dL Ur Leukocyte Esterase Negative (NEGATIVE) Discharge Plan Discharge Chief Complaint: Back Pain/Injury Clinical Impression: Lumbar back pain, Strain of lumbar region Patient Disposition: Home, Self-Care Condition: Good Mode of Transportation: Private Vehicle Prescriptions / Home Meds: New lidocaine [Lidoderm] 5 % adhesive patch,medicated 1 patch topical Q24H Qty: 15 0RF Rx Instructions: leave on most painful area for up to 12 hrs methocarbamol 500 mg tablet 500 mg PO TID PRN (Reason: muscle spasms) Qty: 20 0RF methylprednisolone [Medrol (Yared)] 4 mg tablets,dose pack 4 mg PO DAILY Qty: 1 0RF No Action orphenadrine citrate 100 mg tablet extended release PO raloxifene [Evista] 60 mg tablet 60 mg PO DAILY rosuvastatin 5 mg tablet 5 mg PO BEDTIME calcium citrate 250 mg calcium tablet 25 mg PO DAILY coQ10 (ubiquinol) [Qunol Galindo CoQ10] 100 mg capsule 100 mg PO DAILY Cranberry Plus Vitamin C 140-100 mg capsule 1 cap PO DAILY estradiol 0.01 % (0.1 mg/gram) cream 0.25 appful vaginal .MWF krill oil 500 mg capsule 1 mg PO DAILY Mag Glycinate 100 mg tablet 100 mg PO BEDTIME MULTITHERA 1 tab PO BID mirabegron [Myrbetriq] 50 mg tablet extended release 24 hr 50 mg PO DAILY potassium 99 mg tablet 99 mg PO DAILY strontium 277 mg PO BEDTIME ascorbic acid (vitamin C) [Acerola C] 500 mg tablet,chewable 500 mg PO DAILY cholecalciferol (vitamin D3) 50 mcg (2,000 unit) tablet 50 mcg PO BEDTIME vitamin E 268 mg (400 unit) capsule 400 mg PO DAILY aspirin [Adult Aspirin Regimen] 81 mg tablet,delayed release (DR/EC) 81 mg PO DAILY DermacinRx Bacillex 10 billion cell capsule 100 mmu cells PO DAILY diclofenac sodium 50 mg tablet,delayed release (DR/EC) 50 mg PO Q12H PRN (Reason: pain) Qty: 14 0RF Print Language: Tristanian Instructions: Muscle Strain (ED), Low Back Strain (ED) Referrals: CAMILO JEROME [Primary Care Provider, Family Practice] - 1 week Discharge Date/Time: 07/07/25 22:33
[2025-07-07] MEDS: HYDROCODONE/ACET 5-325 MG TABLET 1 TAB PO (20:36)
[2025-07-07] MEDS: LIDOCAINE 5% PATCH 1 PATCH TOPICAL (20:36)
[2025-07-07] MEDS: KETOROLAC TROMETHAMINE 30 MG/ML VIAL IM (20:37)
[2025-07-07] MEDS: METHOCARBAMOL 500 MG TABLET PO (21:44)
[2025-07-07 22:06] LABS: Glucose Urine UA NEGATIVE (NEGATIVE)
[2025-07-07 22:31] VITALS: BP 156/89; O2SAT 98
== END 2025-07-07 22:33 | disposition home or self-care (01) ==
PROVIDERS: Physician Assistant; Emergency Provider Internal Medicine; PCP Family Medicine
DX: S39.012A Strain of muscle, fascia and tendon of lower back, initial encounter (principal); W01.198A Fall on same level from slipping, tripping and stumbling with subsequent striking against other object, initial encounter; Z79.82 Long term (current) use of aspirin; Z87.440 Personal history of urinary (tract) infections; M54.50 Low back pain, unspecified
CPT/HCPCS: 71100; 81003; 96372; 99285; J1885

== ENCOUNTER 2025-08-20 16:01 | Outpatient (OUT) | payer MEDICARE, OTHER, SELFPAY ==
--- NOTE | 2025-08-20 16:05 | MM_ITS ---
Patient Name: YANELY DOUGLASS MR#: [id number] : 1950 Exam Date: 08/20/2025 Ordering Doctor: DR CAMILO JEROME . RADIOLOGY REPORT PROCEDURE: MM TOMOSYNTHESIS SCREENING BI COMPARISON: MM TOMOSYNTHESIS SCREENING BI, 06/10/2024. MG MAMM SCREEN 3D RADHA CAD, 07/07/2022. MG MAMM SCREEN RADHA W CAD, 05/31/2020. MG MAMM RADHA SCRN W CAD DIG, 11/20/2013. INDICATIONS: Screening for malignant neoplasm Calculator Name NCI Breast Cancer Risk Assessment Tool 5 Year Breast Cancer Risk 1.60% Lifetime Breast Cancer Risk 3.70% Personal Breast Cancer No Personal Ovarian Cancer No Treatments None Family Cancers None LOCATION: [facility] BREAST COMPOSITION: There are scattered areas of fibroglandular density. FINDINGS: RIGHT BREAST: No significant suspicious finding. LEFT BREAST: No significant suspicious finding. DIAGNOSTIC CATEGORY 1--NEGATIVE. RECOMMENDATIONS: ROUTINE MAMMOGRAM AND CLINICAL EVALUATION IN 12 MONTHS. Dictated by: Michi Mccarthy DO on 08/20/2025 at 17:30 Approved by: Michi Mccarthy DO on 08/20/2025 at 17:31
--- OUTSIDE RECORDS SUMMARY | 2025-08-20 16:05 | XMS_ITS | Clinical Summary ---
Author Organization [facility] Address [address] [place] [id number] Care Team Providers Care Commercial Technician Name Role Phone Unavailable Primary Care Provider Unavailabl e Allergies No known active allergies Medications MedicationSigDispense QuantityRefillsLast FilledStart DateEnd DateStatus DEXT 70/POLYCARBOPHIL/PEG/NACL (ARTIFICIAL TEAR SOLUTION OPHTHALMIC) Use in eyes.Active Active Problems No known active problems Family History Medical HistoryRelationCommentsCataractFatherRelationStatusCommentsFather Social History Tobacco UseTypesPacks/DayYears UsedDateSmoking Tobacco: NeverAlcohol UseStandard Drinks/WeekCommentsYes0 (1 standard drink = 0.6 oz pure alcohol)rarely CommentsUnknownSex and Gender InformationValueDate RecordedSex Assigned at Not on fileLegal HumBwpzcc06/17/2015 12:42 PM EDTGender IdentityNot on file Sexual OrientationNot on file Plan of Treatment Health MaintenanceDue DateLast DoneCommentsAnxiety Cfylodgdc96/04/1969Depression Bcbnhvaxb64/04/1969Hepatitis C Spayclazy86/04/1969DTaP,Tdap,Td Vaccine (1 - Tdap)1969Mammogram Avevozuhi69/04/1991CT Lxeqshpdvscq36/04/1996Cologuard (FIT-DNA)12/31/19952150Kekcpwrxvts12/04/1996Colorectal Cancer Moudpdnnh13/04/1996 Diabetes Enksstbkh91/04/1996Fecal Occult Blood12/31/1995Lipid Screening 12/31/19959484Xokeujpoxessp12/04/1996Pneumococcal Vaccine: 50+ (1 of 1 - PCV) 2000Shingrix Vaccine (1 of 2)2000Bone Density Mctfnfpjy40/04/2016 Advance Directive Eqzoxptwmb23/01/2025ovid-19 Vaccine (2024- season) 2025Influenza Vaccine (#1)2025RSV Vaccine (1 - 1-dose 75+ series) 2025 Insurance
--- OUTSIDE RECORDS SUMMARY | 2025-08-20 16:05 | XMS_ITS | CCD ---
Author Organization [facility] Care Team Providers Care Gang Rider Name Role Phone PIPER CARLOS Admitting Unavailable PIPER CRALOS Attending Unavailable MARIALUISA, DR WILVER Ga Consulting [...] MARTINEZ Attending Unavailable SUSAN MARTINEZ Consulting Unavailable HEMEJELENA, DR PAGE Primary Care Unavailable STEVE QUINTERO Consulting Unavailable Greg Pelayo Attending Unavailable Greg Pelayo Admitting Unavailable Fredrick Jerome Primary Care Unavailable Fredrick Jerome MD Unavailable Fredrick Jerome MD Primary Care Provider Fredrick Jerome MD Unavailable Fredrick Jerome MD Primary Care Provider Win Brooke MD Unavailable [phone] Billie Cruz MD Unavailable [phone] Fredrick Jerome MD Primary Care Provider [phone] Win Brooke MD Unavailable FREDRICK JEROME Attending Unavailable FREDRICK JEROME Attending Unavailable FREDRICK JEROME Attending Unavailable FREDRICK JEROME Attending Unavailable Allergies Allergy ClassificationReported Allergen(s)Allergy TypeDate of OnsetReaction(s) Facility (1 source)Sulfonamides (Antibiotic)Drug allergy (disorder)[facility] (13 sources)hydroCHLOROthiazideDrug [id number] Medications Current Medications MedicationDrug Class(es)DatesSig (Normalized)Sig (Original)ascorbic acid 1000 mg oral tablet (13 sources)Vitamin Ctake 1 tablet by mouth in the morningAscorbic Acid (vitamin C) 1000 MG tablet Take 1,000 mg by mouth in the morning. Activeaspirin 81 mg delayed release oral tablet (13 sources)Platelet Aggregation Inhibitor, Nonsteroidal Anti-inflammatory Drug take 1 tablet by mouth in the morningaspirin 81 MG EC tablet Take 81 mg by mouth in the morning. Activecalcium citrate 1040 mg oral tablet (13 sources)take 1 tablet by mouth in the morningcalcium citrate 1040 MG tablet Take 1 tablet by mouth in the morning and 1 tablet before bedtime. Active cholecalciferol 0.05 mg oral tablet (13 sources)Vitamin Dtake 1 tablet by mouth once dailycholecalciferol (Vitamin D-3) 50 MCG (1999) tablet 1 tablet Orally Once a day - during the winter then 2,000units in spring ActiveCranberry-Vitamin C-Vitamin E (CRANBERRY PLUS VITAMIN C PO) (13 sources)Cranberry-Vitamin C-Vitamin E (CRANBERRY PLUS VITAMIN C PO) Cranberry Plus Vitamin C Activecyclobenzaprine hydrochloride 10 mg oral tablet (2 sources)Muscle RelaxantStart: 07-16-2025 End: 51-04-5643ystd 1 tablet by mouth in the morning, then take 1 tablet by mouth in the evening, then take 1 tablet by mouth at bedtimecyclobenzaprine (Flexeril) 10 MG tablet Indications: Back muscle spasm Take 1 tablet (10 mg) by mouth in the morning and 1 tablet (10 mg) in the evening and 1 tablet (10 mg) before bedtime. Do all this for 10 days. 30 tablet 07/16/2025 07/26/2025 Active estradiol 0.1 mg/ml vaginal cream (14 sources)EstrogenStart: 54-73-3907btbcdxxvy (Estrace) 0.1 MG/GM vaginal cream Indications: Hx of hysterectomy, total , Symptomatic states associated with artificial menopause Insert 1 g into the vagina 3 (three) times a week 42.5 g 11 05/29/2025 ActiveStart: 03-22-2023 End: 01-85-3218fgtkaxqwf (Estrace) 0.1 MG/GM vaginal cream Insert 1 g into the vagina 3 (three) times a week. 03/22/2023 05/28/2025 Discontinued (Reorder)krill oil 1000 mg oral capsule (13 sources)take 1 capsule by mouth in the morningKrill Oil 1000 MG capsule Take 1 capsule by mouth in the morning. Activelidocaine 0.05 mg/mg medicated patch (3 sources)Antiarrhythmic, Amide Local AnestheticStart: 60-00-0079yhmrc 1 dose transdermal route every twenty-four hourslidocaine (Lidoderm) 5 % patch APPLY 1 PATCH TOPICALLY EVERY 24 HOURS LEAVE ON MOST PAINFUL AREA FOR UP TO 12 HRS 07/08/2025 ActiveMagnesium (13 sources)magnesium 100 MG tablet 1 (one) time each day at the same time. Activemethocarbamol 500 mg oral tablet (3 sources)Muscle RelaxantStart: 10-14-0797fnuv 1 tablet by mouth three times daily as needed for muscle spasmsmethocarbamol (Robaxin) 500 MG tablet Take 500 mg by mouth 3 (three) times a day as needed for muscle spasms 07/08/2025 Active methylPREDNISolone (3 sources)CorticosteroidStart: 96-51-5110bfpmnmTNPSVZLjlezj (Medrol Dospak) 4 MG tablets TAKE 6 TABLETS ON DAY 1 DIRECTED ON PACKAGE AND DECREASE BY 1 TAB EACH DAY FOR A TOTAL OF 6 DAYS 07/08/2025 Enjbpq36 hr mirabegron 50 mg extended release oral tablet (13 sources)beta3-Adrenergic AgonistStart: 71-42-8250lvzi 1 tablet by mouth in the morning, then take 1 tablet by mouth every twenty-four hoursmirabegron ER (Myrbetriq) 50 MG 24 hr tablet Take 50 mg by mouth in the morning. 03/22/2023 Activenabumetone 750 mg oral tablet (2 sources)Nonsteroidal Anti-inflammatory DrugStart: 07-16-2025 End: 55-04-7451ejkk 1 tablet by mouth in the morningnabumetone (Relafen) 750 MG tablet Indications: Back muscle spasm Take 1 tablet (750 mg) by mouth in the morning and 1 tablet (750 mg) before bedtime. 60 tablet 07/16/2025 08/15/2025 ActivePediatric Multiple Vitamins (THERA MULTI-VITAMIN PO) (13 sources)Pediatric Multiple Vitamins (THERA MULTI-VITAMIN PO) 1 twice a day Orally Activepotassium 99 mg extended release oral tablet (13 sources)take 1 tablet by mouth in the morningPotassium 99 MG tablet Take 1 tablet by mouth in the morning. Activeraloxifene hydrochloride 60 mg oral tablet (17 sources)Estrogen Agonist/AntagonistStart: 03-25-2024 End: 94-89-2061jumk 1 tablet by mouth once dailyraloxifene (Evista) 60 MG tablet Indications: Osteopenia of spine Take 1 tablet (60 mg) by mouth Daily 90 tablet 1 03/17/2025 09/13/2025 Activerosuvastatin calcium 10 mg oral tablet (17 sources)HMG-CoA Reductase InhibitorStart: 03-25-2024 End: 48-58-2383ijge 1 tablet by mouth in the eveningrosuvastatin (Crestor) 10 MG tablet Indications: Mixed dyslipidemia Take 1 tablet (10 mg) by mouth in the evening 90 tablet 1 03/17/2025 09/13/2025 ActivetraMADol hydrochloride 50 mg oral tablet (2 sources)Opioid AgonistStart: 07-16-2025 End: 98-17-8732yqjt 1 tablet by mouth every eight hours for paintraMADol (Ultram) 50 MG tablet Indications: Fall from bed, sequela Take 1 tablet (50 mg) by mouth every 8 (eight) hours if needed for severe pain for up to 5 days 15 tablet 07/16/2025 07/21/2025 Activedl-alpha tocopheryl acetate 100 unt oral capsule (13 sources)take 1 capsule by mouth in the morningalpha tocopherol (Vitamin E) 100 units capsule Take 100 Units by mouth in the morning. Active Completed/Discontinued Medications MedicationDrug Class(es)DatesSig (Normalized)Sig (Original)diclofenac sodium 50 mg delayed release oral tablet (3 sources)Nonsteroidal Anti-inflammatory DrugStart: 06-25-2025 End: 93-15-7664jrwcgtypyz (Voltaren) 50 MG EC tablet Take 50 mg by mouth every 12 (twelve) hours if needed 06/25/2025 07/16/2025 Discontinued (Med list cleanup)12 hr orphenadrine citrate 100 mg extended release oral tablet (3 sources)Muscle RelaxantStart: 06-30-2025 End: 53-54-7456fftd 1 tablet by mouth twice daily as needed for muscle spasms orphenadrine (Norflex) 100 MG 12 hr tablet Indications: Fall from bed, subsequent encounter , Back muscle spasm Take 1 tablet (100 mg) by mouth 2 (two) times a day as needed for muscle spasms Do not crush, chew, or split. 60 tablet 06/30/2025 07/16/2025 Discontinued (Alternate therapy) Problems Active Problems Problem ClassificationProblemDateDocumented DateEpisodic/ChronicCardiac dysrhythmias (13 sources)Multiple premature ventricular complexes; Translations: [Ventricular premature depolarization]Onset: 429017-88-0000XcaigmgYbhpqcs kidney disease (17 sources)Chronic kidney disease stage 2; Translations: [Chronic kidney disease, stage 2 (mild)]Onset: 534556-52-6182NnlfbmmWitspyprsyezu of surgical procedures or medical care (14 sources)Menopausal symptom; Translations: [Symptomatic postprocedural ovarian failure]Onset: 234584-21-0061OtvnqkkVkdnbembcm associated with dizziness or vertigo (4 sources)Dizziness and giddiness; Translations: [DIZZINESS AND GIDDINESS] Onset: 14-62-9553EifavbglUawlfsjph of lipid metabolism (17 sources)Dyslipidemia; Translations: [Mixed hyperlipidemia]Onset: 03-22-2023 69-28-6326CyioyibR Codes: Fall (3 sources)Fall on same level from slipping, tripping and stumbling with subsequent striking against other object, initial encounter; Translations: [Fall from bed, sequela]Onset: 958646-45-5586NtfpoafoKumwdmstm hypertension (17 sources)Essential hypertension; Translations: [Essential (primary) hypertension]Onset: 783168-22-7705JtboqohGgcxlthvaioey symptoms and ill- defined conditions (13 sources)Female stress incontinence; Translations: [Stress incontinence (female) (male)]Onset: 547652-82-5340ZppstyxYjswjtppfgmp with complications and secondary hypertension (17 sources)Hypertensive renal disease; Translations: [Hypertensive chronic kidney disease with stage 1 throughstage 4 chronic kidney disease, or unspecified chronic kidney disease]Onset: 670088-36-0502CxenuwrGfpjfsgwgf disorders (1 source)Menopausal and female climacteric states; Translations: [MENOPAUSAL FE CLIMACTERIC STATES]Onset: 21-62-4986QjlydcaPttoggdyeib deficiencies (13 sources)Vitamin D deficiency; Translations: [Vitamin D deficiency, unspecified]Onset: 178160-24-9702DcrnyzvOtapy acquired deformities (13 sources)Equinus contracture of the ankle; Translations: [Contracture, right ankle]Onset: 384025-29-6362UdwddbmJgdss aftercare (1 source)nursing home (current) use of aspirin; Translations: [RESIDENTIAL CURRENT USE OF ASPIRIN]Onset: 96-58-9051TgcarzviLijql aftercare (1 source)Other halfway (current) drug therapy; Translations: [OTH BLOWING ENGINEER CURRENT DRUG THERAPY]Onset: 44-95-7482DsaluzwtDglkg bone disease and musculoskeletal deformities (13 sources)Posterior calcaneal exostosis; Translations: [Juvenile osteochondrosis of tarsus, right ankle]Onset: 212001-75-2569JagjzgpLiapz bone disease and musculoskeletal deformities (1 source)Other specified disorders of bone density and structure, other site; Translations: [OTH D/O BONE DEN STRUCT OTH SITE]Onset: 52-63-5529VhhhoysrMwvrr circulatory disease (1 source)Elevated blood-pressure reading, without diagnosis of hypertension; Translations: [ELEVATED BP READING W/O DX HTN]Onset: 24-12-3175AxdguczdDlkky screening for suspected conditions (not mental disorders or infectious disease) (7 sources)Encounter for screening mammogram for malignant neoplasm of breast; Translations: [Encounter for screening for osteoporosis]Onset: 07-07-2022 EpisodicResidual codes; unclassified (2 sources)Active advance directive (copy within chart) ; Translations: [Other specified health status]07-14-4415UvgmnrwbDthfovhs codes; unclassified (8 sources)Cardiovascular event risk; Translations: [Other specified personal risk factors, not elsewhere classified]Onset: 799794-61-6788Jueknmaj Screening and history of mental health and substance abuse codes (2 sources)Patient encounter status; Translations: [Encounter for screening examination for other mental health and behavioral disorders]00-08-1205Fmzcegsk Spondylosis; intervertebral disc disorders; other back problems (2 sources)Spasm of back muscles; Translations: [Muscle spasm of back]07-16-2025 EpisodicUnclassified (3 sources)CONTACT W/AND (SUSP) EXPOS COVID-19; Translations: [CONTACT W/AND (SUSP) EXPOS COVID-19]Onset: 40-74-7081Mvosekmugbuy (1 source)COUGH, UNSPECIFIED; Translations: [COUGH, UNSPECIFIED]Onset: 18-51-3408Qvfrqtqoouti (1 source)OTHER SPECIFIED COUGH; Translations: [OTHER SPECIFIED COUGH]Onset: 51-01-5607Loiulxcvrooc (1 source)Encounter for screening for malignant neoplasm of colon; Translations: [Encounter for screening formalignant neoplasm of colon]Onset: 10-24-2023 Past or Other Problems Problem ClassificationProblemDateDocumented DateEpisodic/ChronicGenitourinary symptoms and ill-defined conditions (17 sources)Microalbuminuria; Translations: [Proteinuria, unspecified]Onset: 743679-74-6503ZmvalbezKdqbb valve disorders (13 sources)Heart murmur; Translations: [Cardiac murmur, unspecified]Onset: 469230-69-1527ZliblpyvQtcu disorders (13 sources)Mood disordersOnset: Other bone disease and musculoskeletal deformities (13 sources)Disorder of bone; Translations: [Other specified disorders of bone density and structure, right thigh]Onset: 473583-87-5116SzwywzseUkuao bone disease and musculoskeletal deformities (17 sources)Osteopenia; Translations: [Other specified disorders of bone density and structure, other site]Onset: 098679-79-5757MhxhqurwEuvmv diseases of bladder and urethra (13 sources)Spasm of bladder; Translations: [Other specified disorders of bladder]Onset: 03-22-2023 Resolved: 689561-66-6002QycvmtcPyish nervous system disorders (13 sources)White matter disease; Translations: [White matter disease, unspecified]Onset: 205080-91-1147CixnyxwtSujnj nutritional; endocrine; and metabolic disorders (13 sources)Body mass index 25-29 - overweight; Translations: [Overweight]Onset: 03-22-2023 Resolved: 154876-29-8734FyqdzsuiRcaovbbd codes; unclassified (13 sources)Body mass index 20-24 - normal; Translations: [Body mass index (BMI) 23.0-23.9, adult]Onset: 827795-58-0680NctncqykUpemvjzvjkr injury; contusion (5 sources)Contusion of unspecified part of head, initial encounter; Translations: [Abrasion, left knee, initial encounter]Onset: 12-16-0358Oukaapmx Thyroid disorders (13 sources)Sick-euthyroid syndrome; Translations: [Sick-euthyroid syndrome] Onset: 769088-21-1038SydniislKdftqnkydfgo (1 source)CONTACT W/AND (SUSP) EXPOS COVID-19; Translations: [CONTACT W/AND (SUSP) EXPOS COVID-19]Onset: 10-27-2021 Results Test NameValueInterpretationReference RangeFacilityCOMPREHENSIVE METABOLIC PANEL on 57-69-5469Hlgxzcb [Mass/Vol]4.0 g/dLNormal3.6-5.1Quest DiagnosticsComment on above:Performed By: #### [id number], 2180 #### [facility] [address] Supervisor [employer]: Jerel Green MDAlbumin/Globulin [Mass ratio]1.6 {ratio}Normal 1.0-2.5Quest DiagnosticsComment on above:Performed By: #### 50697, 1460 #### [facility] [address] Supervisor [employer]: Jerel Green MDALP [Catalytic activity/Vol]43 U/XOegjzy41-564 [facility] DiagnosticsComment on above:Performed By: #### 52269, 1600 #### [facility] of [address], [address] [place] [address] Supervisor [employer]: Jerel Green MDALT [Catalytic activity/Vol]11 U/LNormal6-29 [facility] DiagnosticsComment on above:Performed By: #### 89180, 7600 #### [facility] of [address], [address] [place] [address] Supervisor [employer]: Jerel Green MDAST [Catalytic activity/Vol]17 U/AOwuslw46-96 [facility] DiagnosticsComment on above:Performed By: #### 13667, 7600 #### [facility] of [address], [address] [place] [address] Supervisor [employer]: Jerel Green MDBilirubin [Mass/Vol]0.5 mg/dLNormal0.2-1.2 [facility] DiagnosticsComment on above:Performed By: #### 76188, 7600 #### [facility] of [address], [address] [place] [address] Supervisor [employer]: Jerel Green MDBUN/CREATININE RATIOSEE NOTE:Normal6-22Quest DiagnosticsComment on above:Result Comment: Not Reported: BUN and Creatinine are within reference range.Performed By: #### 10462, 7600 #### [facility] of [address], [address] [place] [address] Supervisor [employer]: Jerel Green MDCalcium [Mass/Vol]9.3 mg/dLNormal8.6-10.4Quest DiagnosticsComment on above:Performed By: #### 28656, 7600 #### [facility] of [address], [address] [place] [address] Supervisor [employer]: Jerel Green MDChloride [Moles/Vol]106 mmol/DWjbfdq65-389 [facility] DiagnosticsComment on above:Performed By: #### 41651, 7600 #### [facility] of [address], [address] [place] [address] Supervisor [employer]: Jerel Green MDCO2 [Moles/Vol]30 mmol/WJoszeo38-49Futej DiagnosticsComment on above:Performed By: #### 95177, 7600 #### [facility] [place] [address] Supervisor [employer]: Jerel Green MDCreatinine [Mass/Vol]0.93 mg/dLNormal0.60-1.00 [facility] DiagnosticsComment on above:Performed By: #### 36437, 7600 #### [facility] of [place] [address] Supervisor [employer]: Jerel Green MDGFR/1.73 sq M.predicted among non-blacks MDRD (S/P/Bld) [Vol rate/Area]64 mL/min/{1.73_m2}Normal> OR = 60[facility] Comment on above:Performed By: #### 42926, 7600 #### [facility] [place] [address] Supervisor [employer]: Jerel Green MDGlobulin (S) [Mass/Vol]2.5 g/dLNormal1.9-3.7 [facility] DiagnosticsComment on above:Performed By: #### 77396, 7600 #### [facility] [place] [address] Supervisor [employer]: Jerel Green MDGlucose [Mass/Vol]85 mg/oKOtnvtd65-56Prlil DiagnosticsComment on above:Result Comment: Fasting reference intervalPerformed By: #### 67310, 7600 #### [facility] of [place] [address] Supervisor [employer]: Jerel Green MDPotassium [Moles/Vol]4.0 mmol/LNormal3.5-5.3 [facility] DiagnosticsComment on above:Performed By: #### 12280, 7600 #### [facility] of [place] [address] Supervisor [employer]: Jerel Green MDProtein [Mass/Vol]6.5 g/dLNormal6.1-8.1Quest DiagnosticsComment on above:Performed By: #### 32437, 7600 #### [facility] [place] [address] Supervisor [employer]: Jerel Green MDSodium [Moles/Vol]141 mmol/HOeseqe282-648Dwkum DiagnosticsComment on above:Performed By: #### 10584, 7600 #### [facility] [address], [address] [place] [address] Supervisor [employer]: Jerel Green MDUrea nitrogen [Mass/Vol]22 mg/dLNormal7-25 [facility] DiagnosticsComment on above:Performed By: #### 79111, 7600 #### [facility] [place] [address] Supervisor [employer]: Jerel Green MDLIPID PANEL, [facility] [place] 91-99-5763Svhfzlpzjlp [Mass/Vol]241 mg/dLHigh<200Quest DiagnosticsComment on above:Order Comment: FASTING:YES FASTING: YESPerformed By: #### 14489, 7600 #### [facility] [place] [address] Supervisor [employer]: Jerel Green MDCholesterol in HDL [Mass/Vol]80 mg/dLNormal> OR = 50Quest DiagnosticsComment on above:Order Comment: FASTING:YES FASTING: YESPerformed By: #### 38356, 7600 #### [facility] [place] [address] Supervisor [employer]: Jerel Green MDCholesterol in LDL [Mass/Vol]139 mg/dLHigh [facility] DiagnosticsComment on above:Order Comment: FASTING:YES FASTING: YESResult Comment: Reference range: <100 Desirable range <100 mg/dL for primary prevention; <70 mg/dL for patients with CHD or diabetic patients with > or = 2 CHD risk factors. LDL-C is now calculated using the Arjun-Murillo calculation, which is a validated novel method providing better accuracy than the Friedewald equation in the estimation of LDL-C. Arjun MCLAUGHLIN et al. TYE. 2013;310(19): 3136-2915 (http://education.Ofidium.dscout/faq/ERW027)Performed By: #### 43668, 7600 #### [facility] [address], [address] [place] [address] Supervisor [employer]: Jerel SHIRLEYholesterol.total/Cholesterol in HDL [Mass ratio]3.0 {ratio}Normal<5.0Quest DiagnosticsComment on above:Order Comment: FASTING:YES FASTING: YESPerformed By: #### 28550, 0 #### [facility] [address], [address] [place] [address] Supervisor [employer]: Jerel PHILIP HDL EVZBRPURPWE435 mg/dL (calc)High<130 Quest DiagnosticsComment on above:Order Comment: FASTING:YES FASTING: YESResult Comment: For patients with diabetes plus 1 major ASCVD risk factor, treating to a non-HDL-C goal of <100 mg/dL (LDL-C of <70 mg/dL) is considered a therapeutic option.Performed By: #### 15292, 0 #### [facility] [place] [address] Supervisor [employer]: Jerel Green MDTriglyceride [Mass/Vol]103 mg/dLNormal<150 [facility] DiagnosticsComment on above:Order Comment: FASTING:YES FASTING: YESPerformed By: #### 94160, 7600 #### [facility] [address], [address] [place] [address] Supervisor [employer]: Jerel SHIRLEYBC AUTO DIFFon 76-69-5114KCQK #0.0 103/ul Normal0.0-0.1[facility] Memorial HospitalComment on above:Performed By: #### CBC #### [facility] [address] [address] [address] Daniel Mayerssophils/100 WBC (Bld)0.4 %Normal0.2-2.0[facility] Comment on above:Performed By: #### CBC #### [facility] [address] [place] [address] Dr. Daniel Headley #0.2 103/ulNormal0.0-0.7The [facility] HospitalComment on above: Performed By: #### CBC #### [facility] [address] [place] [address] Dr. Daniel Correiaosinophils/100 WBC (Bld)2.7 %Normal0.9-7.0[facility] Comment on above:Performed By: #### CBC #### [facility] [address] [place] [address] Dr. Daniel Correiarythrocyte distribution width (RBC) [Ratio]13.3 %Tbkdqv08.0-15.0 [facility] HospitalComment on above:Performed By: #### CBC #### [facility] [address] [place] [address] Dr. Daniel HesterHematocrit (Bld) [Volume fraction]38.8 %Xxcjym06.0-48.0[facility] HospitalComment on above:Performed By: #### CBC #### [facility] [address] [place] [address] Dr. Daniel HesterHemoglobin (Bld) [Mass/Vol]13.0 g/uVZbsmyc72.0-16.0The [facility] HospitalComment on above:Performed By: #### CBC #### [facility] [address] [place] [address] Dr. Daniel Parra #0.01 10e3/ulNormal0.00-0.03The [facility] HospitalComment on above:Performed By: #### CBC #### [facility] [address] [place] [address] Dr. Daniel Parra %0.1 %Normal0.0-0.5The [facility] HospitalComment on above: Performed By: #### CBC #### [facility] [address] [place] [address] Dr. Daniel Greer #2.5 103/ulNormal1.2-3.8The [facility] HospitalComment on above:Performed By: #### CBC #### [facility] [address] [place] [address] Dr. Daniel Sutherlandmphocytes/100 WBC (Bld)36.6 %Idbtpm26.5-60.0The [facility] HospitalComment on above:Performed By: #### CBC #### [facility] [address] [place] [address] Dr. Daniel Medina DIFF REQNONormalThe [facility] HospitalComment on above: Performed By: #### CBC #### [facility] [address] [place] [address] Dr. Daniel Osorio (RBC) [Entitic mass]31.7 jjSgffbo90.7-34.0[facility] HospitalComment on above:Performed By: #### CBC #### [facility] [address] [place] [address] Dr. Daniel Osorio (RBC) [Mass/Vol]33.5 g/gUWsvexx73.9-35.2The [facility] HospitalComment on above:Performed By: #### CBC #### [facility] [address] [place] [address] Dr. Daniel Guevara (RBC) [Entitic vol]94.6 aJQqosxw08.0-99.0The [facility] HospitalComment on above:Performed By: #### CBC #### [facility] [address] [place] [address] Dr. Daniel Rivera #0.4 103/ulNormal0.3-0.8The [facility] HospitalComment on above:Performed By: #### CBC #### [facility] [address] [place] [address] Dr. Daniel Ramirezocytes/100 WBC (Bld)6.4 %Normal1.7-12.0[facility] Comment on above:Performed By: #### CBC #### [facility] [address] [place] [address] Dr. Daniel Castro #3.6 103/ulNormal1.4-6.5The [facility] HospitalComment on above:Performed By: #### CBC #### [facility] [address] [place] [address] Dr. Daniel Robledoutrophils/100 WBC (Bld)53.8 %Fdkemu11.0-75.0The [facility] HospitalComment on above:Performed By: #### CBC #### [facility] [address] [place] [address] Dr. Daniel HesterPlatelet mean volume (Bld) [Entitic vol]10.9 fLNormal9.5-13.5The [facility] HospitalComment on above:Performed By: #### CBC #### [facility] [address] [place] [address] Dr. Daniel HesterPLT217 103/yoIebopx211-622Wfc [facility] HospitalComment on above: Performed By: #### CBC #### [facility] [address] [place] [address] Dr. Daniel HesterRBC4.10 106/ulCritically low4.20-5.40The [facility] Memorial HospitalComment on above:Performed By: #### CBC #### [facility] [address] [place] [address] Dr. Daniel HesterWBC6.7 103/ulNormal4.0-11.0The [facility] HospitalComment on above: Performed By: #### CBC #### [facility] [address] [place] [address] Dr. Daniel HesterCT HEAD WO CONon [id number] HEAD WO CONEXAM: CT HEAD WO CON CLINICAL INDICATION: Dizziness [...] Electronically authenticated by: STEVE QUINTERO Date: 2022-08-27 14:38[facility] HospitalPROF CHEM 8 (BAS METB)on 08-87-9573Ciupi gap [Moles/Vol]8.7 mmol/LNormalMercy Memorial HospitalComment on above:Performed By: #### BMP, HSTROPN #### [facility] [address] [place] [address] Dr. Daniel HesterCalcium [Mass/Vol]9.7 mg/dLNormal8.5-10.1[facility] Comment on above:Performed By: #### BMP, HSTROPN #### [facility] [address] [place] [address] Dr. Daniel HesterChloride [Moles/Vol]104 mmol/FPnufcp48-041LdkMercy Memorial Hospital Comment on above:Performed By: #### BMP, HSTROPN #### [facility] [address] [place] [address] Dr. Daniel HesterCO2 [Moles/Vol]29.6 mmol/BPrqaxg85.0-32.0[facility] Comment on above:Performed By: #### BMP, HSTROPN #### [facility] [address] [place] [address] Dr. Daniel HesterCreatinine [Mass/Vol]1.00 mg/dLNormal0.55-1.02Mercy Memorial HospitalComment on above:Performed By: #### BMP, HSTROPN #### [facility] [address] [place] [address] Dr. Sanchez ChangEGFR-AF KUWAITI>60Normal>=60The [facility] HospitalComment on above:Performed By: #### BMP, HSTROPN #### [facility] [address] [place], [place] [address] Dr. Daniel CorreiaGFR-NON AF LYYJTJGH09 mL/min/1.66k6Wjtpxyeulz low>=60The [facility] HospitalComment on above:Performed By: #### BMP, HSTROPN #### [facility] [address] [place] [address] Dr. Daniel HesterGlucose [Mass/Vol]98 mg/nENlmvgk03-197Lzm [facility] Comment on above:Performed By: #### BMP, HSTROPN #### [facility] [address] [place] [address] Dr. Daniel HesterPotassium [Moles/Vol]3.3 mmol/LCritically low3.5-5.1The [facility] HospitalComment on above:Performed By: #### BMP, HSTROPN #### [facility] [address] [place] [address] Dr. Daniel HesterSodium [Moles/Vol]139 mmol/GHjgbwz927-348Lgt [facility] Comment on above:Performed By: #### BMP, HSTROPN #### [facility] [address] [place] [address] Dr. Daniel HesterUrea nitrogen [Mass/Vol]15.0 mg/dLNormal7.0-18.0The [facility] HospitalComment on above:Performed By: #### BMP, HSTROPN #### [facility] [address] [place] [address] Dr. Daniel HesterUrea nitrogen/Creatinine [Mass ratio]15.0 mg/mgNormalThe [facility] HospitalComment on above:Performed By: #### BMP, HSTROPN #### [facility] [address] [place] [address] Dr. Daniel Palomino, HIGH SENSITIVITYon 33-60-0593SVVZAS77.7 pg/mLNormal 4.0-51.3The [facility] on above:Result Comment: CUT-OFF POINTS HAVE BEEN ESTABLISHED BASED ON THE FOURTH UNIVERSAL DEFINITIONS OF MYOCARDIAL INFARCTION. THE UPPER REFERENCE LIMIT (URL) OF TROPONIN, DEFINED THE 99TH PERCENTILE OF cTnI DISTRIBUTION IN A REFERENCE POPULATION, HAS BEEN CONFIRMED THE DECISION THRESHOLD FOR DE DIAGNOSIS.Performed By: #### BMP, HSTROPN #### [facility] [address] [address] [address] Daniel HesterMG MAMM SCREEN 3D RADHA CADon 77-45-6687PQ MAMM SCREEN 3D RADHA CAD Patient: KRISTAN BARKER Exam Date: 07/07/2022 : 1950 Gender:F Ordering : DR FREDRICK JEROME . Admission #: [id number] Family : Order #: [id number] CLICK HERE TO VIEW EXAM RADIOLOGY REPORT [...] None Family Cancers None LOCATION: [facility] BREAST COMPOSITION: Scattered areas fibroglandular density. [...] by: Wilver Dejesus M.D. on 07/07/2022 at 12:35[facility] HospitalXR DEXA BONE DENSITYon [id number] DEXA BONE DENSITYEXAMINATION: XR DEXA BONE DENSITY, 07/07/2022 11:02 AM [...] Electronically authenticated by: WILVER DEJESUS Date: 2022-07-07 11:51NoAultman Orrville HospitalCT HEAD WO CONon [id number] HEAD WO CONEXAMINATION: CT HEAD WO CON HISTORY: Pain COMPARISON: [...] Electronically authenticated by: WILVER DEJESUS Date: 2022-04-11 11:00NoAultman Orrville HospitalXR KNEE LT 4V or >on [id number] KNEE LT 4V or >EXAM: XR KNEE LT 4V or > HISTORY: Pain acute left knee pain after fall. COMPARISON: None TECHNIQUE: Tangential, frontal, lateral and frontal oblique views left knee FINDINGS: No dislocation or joint subluxations. No acute fracture. No left knee effusion. Mild osteoarthrosis. Subchondral cyst formation lateral tibial plateau. Enthesopathy patella. Some dystrophic/heterotopic ossification overlying the lateral femoral condyle likely from old soft tissue injury IMPRESSION: No acute fracture left knee. Mild osteoarthrosis. Electronically authenticated by: KARLA MERLOS Date: 2022-04-11 09:45[facility] HospitalCovid-19 PCR (CVDTB)on 82-07-6053OYLM-CoV-2 (COVID-19) RNA RAMIRO+probe Ql (Unsp spec)Not detectedNormalNOT DETECTEDThe [facility] Comment on above:Result Comment: This test is not yet approved or cleared by the [place] FDA. When there are no FDA-approved or cleared tests available, and other criteria are met, FDA can make tests available under an emergency access mechanism called an Emergency Use Authorization (EUA). The EUA for this test is supported by the [place] of Health and Human Service's (HHS's) declaration that circumstances exist to justify the emergency use of in vitro diagnostics for the detection and/or diagnosis of the virus that causes COVID- 19. This EUA will remain in effect (meaning [...] of clinical signs and symptoms consistent with SARS-CoV-2.Performed By: #### CVDTBH #### [facility] [address] [place] [address] Dr. Daniel Hester Vital Signs Date TimeVital SignValuePerforming FhiswcrotNzdsvkkf73-87-8584 14:33-0400Body .6 cmEdyaw Jerome MD Work Phone: [phone] HospitalGncrqwslsp79-23-2294 14:33-0400Body mass index (BMI) [Ratio]24.05 kg/y2RnbqktFredrick Jerome MD Work Phone: [phone])[facility] HospitalDyyppjbwlu92-41-8147 14:33-0400Body rrkons43.59 kgFredrick Jerome MD Work Phone: [phone])[facility] HospitalWunkyiepsr83-68-0558 14:33-0400Diastolic blood qupspoqr28 mm[Hg]Fredrick Jerome MD Work Phone: [phone])[facility] HospitalVestujkruw02-65-0033 14:33-0400Heart rate59 /min Fredrick Jerome MD Work Phone: [phone] HospitalAxvdvwtqoy75-69-6077 14:33-0503EfJ7% (BldA) [Mass fraction]96 %Fredrick Jerome MD Work Phone: [phone] HospitalFvxxrjxnfi67-33-1305 14:33-0400Systolic blood lbpzufll288 mm[Hg]Fredrick Jerome MD Work Phone: [phone] [place], [place] [address]1005-20-2025 08:03-0400Body mass index (BMI) [Ratio]23.4 kg/z5MwkwalFredrick Jerome MD Work Phone: [phone])[address] [place], [place] 4891005-20-2025 08:03-0400Body bksifl55.77 kgFredrick Jerome MD Work Phone: [phone] [place], [place] 4891005-20-2025 08:03-0400Diastolic blood ymplesir37 mm[Hg]Fredrick Jerome MD Work Phone: [phone] [place], [place] 4891005-20-2025 08:03-0400Heart rate70 /min Fredrick Jerome MD Work Phone: [phone] [place], [place] 4891005-20-2025 08:03-1784OxQ9% (BldA) [Mass fraction]95 %Fredrick Jerome MD Work Phone: [phone] [place], [place] 4891005-20-2025 08:03-0400Systolic blood rzeieudm033 mm[Hg]Fredrick Jerome MD Work Phone: [phone])[address] [place], [place] 4891011-19-2024 09:00-0500Body .6 cmEchava Jerome MD Work Phone: [phone] [place], [place] 4891011-19-2024 09:00-0500Body mass index (BMI) [Ratio]24.45 kg/l6IucxstFredrick Jerome MD Work Phone: [phone] [place], [place] [address]1-19-2024 09:00-0500Body kdzjyq30.72 kgFredrick Jerome MD Work Phone: [phone] [place] [address]-19-2024 09:00-0500Diastolic blood llfslaer49 mm[Hg]Fredrick Jerome MD Work Phone: [phone] [place] [address]-19-2024 09:00-0500Heart rate67 /min Fredrick Jerome MD Work Phone: [phone] [place] [address]-19-2024 09:00-9837KtB1% (BldA) [Mass fraction]97 %Fredrick Jerome MD Work Phone: [facility] Ugyyiketce05-16-8315 09:00-0500Systolic blood jkrimsdg570 mm[Hg]Fredrick Jerome MD Work Phone: [facility] Encounters Encounter DateEncounter TypeCare ProviderFacilityStart: 07-16-2025 End: 31-41-7425Tqqcjp flowsCamacho Jerome MD Work Phone: [facility] [place] MedicineStart: 07-16-2025 End: 56-96-8155Vzflbx flowsCamacho Jerome MD Work Phone: [facility] [place] [facility] MedicineStart: 07-16-2025 End: 63-81-3058iseupijpisEBRNDB J HEMEYERNot AvailableStart: 07-16-2025 End: 05-89-6839Hvxyzp outpatient visit 25 minutesEdyaw Jerome MD Work Phone: [facility] [place] [facility] Family MedicineComment on above:Fall from bed, sequela; Back muscle spasmStart: 05-28-2025 End: 29-37-9831Luaujknxy encounterApril Kaylynn TALBERT [place] [facility] Comment on above:Care CoordinationStart: 05-05-2025 End: 65-91-6828isddyfwaehDXIDBJ J HEMEYERNot AvailableStart: 05-05-2025 End: 98-06-8871Psmvse flowsCamacho Jerome MD Work Phone: [facility] 100Start: 05-05-2025 End: 05-77-8330Jqcjbm flowsCamacho Jerome MD Work Phone: [facility] 100Start: 05-05-2025 End: 91-61-9979Zfkmjxi encounter procedureFredrick Jerome MD Work Phone: [facility] FM 100Comment on above:Encounter for Medicare annual wellness exam (Primary Dx); Advance directive in chart; Encounter for screening for other disorder; Screening for alcohol problem; Hx of hysterectomy, total; Cardiovascular event riskStart: 03-17-2025 End: 75-15-5370Tuwjbs Geno Jerome MD Work Phone: [facility] 100Start: 03-17-2025 End: 72-66-5128Rbkcuj Geno Jerome MD Work Phone: [facility] 100Start: 03-17-2025 End: 30-76-8944Oqvjia outpatient visit 25 minutesEdyaw Jerome MD Work Phone: [phone] FM 100Comment on above:Essential hypertension (CMS/HCC); Hypertensive nephropathy (CMS/HCC); Stage 2 chronic kidney disease; Microalbuminuria; Mixed dyslipidemia (CMS/HCC); Osteopenia of spineStart: 03-17-2025 End: 07-31-9328xebvorwsiwDTAZDO J HEMEYERNot AvailableStart: 09-16-2024 End: 22-48-4936Qczqqd Geno Jerome MD Work Phone: [facility] 100Start: 09-16-2024 End: 71-41-0778Tnefah Geno Jerome MD Work Phone: [phone] 100Start: 09-16-2024 End: 83-42-9705Phbqxv outpatient visit 15 minutesEdyaw Jerome MD Work Phone: [facility] FM 100Comment on above:Essential hypertension (CMS/HCC); Hypertensive nephropathy (CMS/HCC); Stage 2 chronic kidney disease; Microalbuminuria; Mixed dyslipidemia (CMS/HCC); Osteopenia of spineStart: 09-16-2024 End: 47-21-6239znnvgrokcsLVIJVA J HEMEYERNot AvailableStart: 10-24-2023 End: 26-26-1197fcguejhsklOcksnjk J DittyFacility:[facility] Hospitaltart: 08-27-2022 End: 58-73-6961wxamhjlbwpNOXXUVE D KATKOFacility:I6Bbekj: 07-07-2022 End: 16-18-1575uqlyjyniplAC FREDRICK HEMEYERFacility:L0Demhu: 04-11-2022 End: 72-46-1020ihonmryfhnIQOJLA RODRIGUEZFacility:O5Uofib: 10-27-2021 End: 25-40-9993miwgtntauuUV FREDRICK HEMEYERFacility:H1 Procedures DateProcedureProcedure DetailPerforming ClinicianStart: 17-21-7041Wmxzanwruze Fredrick Jerome MD Work Phone: Start: 03-72-9596EmkgqdpnzjvUsgicy Hemeyer MD Work Phone: Start: 37-03-1989Vutndmj of total hysterectomyHx of hysterectomy, totalEdyaw Jerome MD Work Phone: Start: 16-58-5489MqxxgzgpuarWaqgay Hemeyer MD Work Phone: History of total hysterectomyHx of hysterectomy, total Fredrick Jerome MD Work Phone: History of total hysterectomyHx of hysterectomy, total January Kaylynn SCOTT Plan of Treatment DateCare ActivityDetailAuthorStart: 91-51-1328Cwvpebdqm for malignant neoplasm of colonNOMS HealthcareStart: 82-55-3413Fqfwhvgxh for malignant neoplasm of colonNOMS HealthcareStart: 05-06-2026 End: 74-35-4108Btffwgg encounter ozwlzdnca25/09/2026 2:00 PM EDT Office Visit [facility] [address] [place] [address] [address] [facility] [address] [place] [address] Fredrick Jerome MD 112 [facility] [address] [place] [address] (Fax)[facility] [address] MedicineStart: 07-08-2026Medicare Annual Wellness (AWV)Medicare Annual Wellness (AWV)[facility] HealthcareStart: 09-08-2025 End: 45-77-0229Zjahoyt encounter procedureNOMS CI FM 100Start: 06-29-2025 Influenza vaccinationNOMS HealthcareStart: 92-99-4188Wlckmxpzo for malignant neoplasm of breastMammogramNOMS HealthcareStart: 07-11-2025Medicare Annual Wellness (AWV)Medicare Annual Wellness (AWV)[facility] HealthcareStart: 03-17-2025 End: 26-57-0993Oxdolbu encounter fmgsjqxwi70/20/2025 8:00 AM EDT Office Visit [facility] [address] [place] [address] Fredrick Jerome MD [address] [place] [address] (Fax) Essential hypertension (CMS/HCC); Hypertensive nephropathy (CMS/HCC); Stage 2chronic kidney disease; Microalbuminuria; Mixed dyslipidemia (CMS/HCC)[facility] CI FM 100Comment on above: Essential hypertension (CMS/HCC); Hypertensive nephropathy (CMS/HCC); Stage 2 chronic kidney disease; Microalbuminuria; Mixed dyslipidemia (CMS/HCC)Start: 03-10-2025 End: 44-95-5366Auihacv encounter gzdvekfmn64/13/2025 8:00 AM EDT Office Visit [facility] [address] [facility] [address] [place] [address] Fredrick Jerome MD [address] [place] [address] (Fax)[facility] FM 100Start: 02-14-2025 End: 34-30-5020Fdgwycpjtibpe metabolic 2000 panel - Serum or PlasmaComprehensive metabolic panel Lab Routine Essential hypertension (CMS/HCC) Hypertensive nephropathy(CMS/HCC) Stage 2 chronic kidney disease Expected: 02/14/2025, Expires: 09/16/2025[facility] Work Phone: Comment on above:Expected: 02/14/2025, Expires: 09/16/2025Start: 02-14-2025 End: 63-43-6122Vlhiv 1996 panel - Serum or PlasmaLipid panel Lab Routine Mixed dyslipidemia (CMS/HCC) Expected: 02/14/2025, Expires: 09/16/2025[facility] Comment on above:Expected: 02/14/2025, Expires: 09/16/2025Start: 09-16-2024 End: 90-65-9676Petmkcp encounter cseiaxros91/19/2024 9:00 AM EST Office Visit [facility] [address] [place] [address] Fredrick Jerome MD [address] [facility] [address] [place] [address] (Fax) Essential hypertension (CMS/HCC); Hypertensive nephropathy (CMS/HCC); Stage 2 chronic kidney disease; Microalbuminuria; Mixed dyslipidemia (CMS/HCC)[facility] CI FM 100Comment on above: Essential hypertension (CMS/HCC); Hypertensive nephropathy (CMS/HCC); Stage 2 chronic kidney disease; Microalbuminuria; Mixed dyslipidemia (CMS/HCC)Start: 61-09-4578Horpqwuxh vaccinationInfluenza Vaccine (#1)[facility] HealthcareStart: 86-92-9296Moawpjpmc for malignant neoplasm of colonBEAVER VALLEY [facility] Healthcare Immunizations Immunization DateImmunizationNotesCare WljcvkbbHzsomxum01-36-4835tawynayev, high dose seasonal, preservative-freeFredrick Jerome MD Work Phone: [facility] HospitalQhucjuklly83-24-0744xjlhhuffv virus vaccine, unspecified formulationFredrick Jerome MD Work Phone: [facility] HospitalQodjisqezt45-90-0471WHQ, recombinant, protein subunit RSVpreF, adjuvant reconstitu, 120mcg/0.5mL, PF (Arexvy)Fredrick Jerome MD Work Phone: [facility] HospitalFxrkpxqeek19-08-2137eabljn vaccine recombinant Fredrick Jerome MD Work Phone: [facility] HospitalTyjcscdyay80-31-5342Vyumoaiba, Seasonal, Quadrivalent, AdjuvantYinka Jerome MD Work Phone: [facility] HospitalZfoiziohki77-74-8690kenpuazgw virus vaccine, unspecified formulationFredrick Jerome MD Work Phone: [facility] HospitalUzjmcqckhs83-16-7750ccfbuw vaccine recombinant Fredrick Jerome MD Work Phone: [phone] [place], [place] [address]Wxotxacgyw48-32-8946Lqddgouxb, High-dose Seasonal, Quadrivalent, Preservative FreeFredrick Jerome MD Work Phone: [phone] [place], [place] [address]Pkfzxxfkxm60-43-5611Dhrrgkfos, High-dose Seasonal, Quadrivalent, Preservative FreeFredrick Jerome MD Work Phone: [phone] [place], [place] [address]Dpuwjevqyr97-02-7658kwcuiqlvz, high dose seasonal, preservative-freeEdyaw Jerome MD Work Phone: [phone] [place], [place] [address]Ladalkvzyn09-79-4517sydmwbgnq, high dose seasonal, preservative-freeEdyaw Jerome MD Work Phone: [phone] [place], [place] [address]Ienelltbon13-37-6673jawngvsvq, high dose seasonal, preservative-freeEdyaw Jerome MD Work Phone: [phone] [place], [place] [address]Xotsxvrwss78-42-5568gbmywweop, injectable, quadrivalent, preservative freeFredrick Jerome MD Work Phone: [phone] [place], [place] [address]Ijsyhlhpgr78-17-5508xerojvpyznhn polysaccharide vaccine, 23 Wil Jerome MD Work Phone: [phone] [place], [place] [address]Ylgwjlysoj07-50-1323wrkrwxnsz, injectable, quadrivalent, preservative freeFredrick Jerome MD Work Phone: [phone] [place], [place] [address]Uandtdqcqk20-18-0931qsxqnzzmnfqi polysaccharide vaccine, 23 Wil Jerome MD Work Phone: [phone] [place], [place] [address]Hmnzcdvdql90-48-3222oretqhmwctbn conjugate vaccine, 13 Wil Jerome MD Work Phone: [phone] [place], [place] [address]Zktwgdcxtg55-55-8461ktvagjoan, seasonal, injectable, preservative freeEdyaw Jerome MD Work Phone: [phone])[facility] [place], [place] [address]Mrflraqyke70-59-4869qwfythvf influenza, intradermal, preservative freeFredrick Jerome MD Work Phone: [phone] [place] [address] Payers DatePayer CategoryPayerPolicy [id number] Regional Hospital Member Subscriber Plan / Payer (Effective 2023- Present) Name: Kristan Barker Relation to Subscriber: Self Name: Kristan Barker Payer ID: Not on file Group ID: Not on file Type: Not on file Address: [address] [place] [id number] 2016Medicare MEDICARE ..[id number] [id number] [id number] 2..1.322168.3.57[id number] 2..1.841016.3.57[id number] 2..1.144047.3.57[id number] 2..1.303558.3.57[id number] 2..1.399703.3.57[id number] 2..1.500894.3.57[id number] 2..840.1.321695.3.57[id number] 2.16.840.1.58[id number] 2.16.840.1.949205.3.579.2.531 Social History DateTypeDetailFacilityStart: 63-99-3634Nblihyx smoking status NHISNever smoked tobaccoNOMS HealthcareStart: 23-09-2579Gmzdmii use and exposureSmokeless tobacco non-userNOMS HealthcareStart: 05-08-2024 End: 93-36-4277Vldijkbui beverage intakeCurrent drinker of alcohol (finding)[facility] HealthcareStart: 05-08-2024 End: 82-61-3863Ztsszzxmf beverage intakeNOMS HealthcareStart: 09-25-2023 End: 74-08-8091Uvsblhuadir, Afraid, Rape, and Kick questionnaire [HARK][facility] HealthcareWithin the last year, have you been afraid of your partner or ex-partner?NoNOMS HealthcareDo you belong to any clubs or organizations such as roman catholic groups, unions, fraternal or athletic groups, or school groups?YesNOMS HealthcareAre you now , , , , never or living with a partner?MarriedNOMS HealthcareHow often to you have a drink containing alcohol?Monthly or lessNOMS HealthcareHow many standard drinks containing alcohol do you have on a typical day?1 or 2NOMS HealthcareHow often do you have 6 or more drinks on 1 occasion?NeverNOMS HealthcareHow hard is it for you to pay for the very basics like food, housing, medical care, and heating Not hard at allNOMS HealthcareDo you feel stress - tense, restless, nervous, or anxious, or unable to sleep at night because yourmind is troubled all the time - these days [OSQ]Not at allNOMS Healthcare(I/We) worried whether (my/our) food would run out before (I/we) got money to buy more.Never trueN[facility] Healthcare Start: 98-12-5789Rlcopie CommentVery occasionalyNOMS HealthcareStart: 1950 Sex assigned at birthNot on fileChildren's Mercy HospitalStart: 48-02-1583Uaigix identity Identifies as female gender (finding)[facility] HealthcareDo you feel stress - tense, restless, nervous, or anxious, or unable to sleep at night because yourmind is troubled all the time - these days [OSQ]Rather [facility] Clinical Notes 09-16-2024 to 07-16-2025 Note Date & SgthSasdSbwgtvqx55-05-9042 History of Present illness Narrative* Fredrick Jerome MD - 07/16/2025 1:45 PM EDT Images from the original note were not included. Patient ID: Kristan Barker is a 74 y.o. female who presents for: Back Pain Patient who presents for evaluation of low back pain. The patient has had no prior back problems. Symptoms have been present for several weeks and are unchanged. Onset was related to / precipitated by a fall. Symptoms are exacerbated by coughing, exercise, sitting, standing, and twisting. Symptoms are improved by steroids. He/She has also tried chiropractic manipulation and muscle relaxants whichprovided no symptom relief. He/She has no other symptoms associated with the back pain. Review of Systems Objective The patient is pleasant and in no acute distress, but obviously uncomfortable. The heart is regular rate and rhythm without S3, S4. No murmur. The patient has normal respiratory pattern. The breath sounds are symmetrical without evidence of rhonchi or rales. No wheezing. The skin is warm and dry. She is slow to get on and off the exam table. Palpation along the spinous processes proper of the thoracic region does not demonstrate pain, however she has 2 areas of paraspinal small spasm along with overall hypertonicity especially right-sided. There is some tenderness along these ribs as a move around her ribcage. She does not have costochondral tenderness. Her abdomen is soft and nontender there is no organomegaly or masses appreciated. All 4 extremities move purposefully. The patient has good eye contact and speech is clear. Appropriate affect. 05/05/2025 2:33 PM 03/17/2025 8:03 AM 09/16/2024 9:00 AM 03/25/2024 8:31 AM Vitals BMI 24.05 kg/m2 23.4 kg/m2 24.45 kg/m2 24.45 kg/m2 BSA (m2) 1.77 m2 1.75 m2 1.79 m2 1.79 m2 Systolic 126 126 126 118 Diastolic 76 72 70 68 Heart Rate 59 70 67 57 SpO2 96 % 95 % 97 % 98 % Height (in) 5' 6 5' 6 5' 6 Weight (lb) 149 145 151.5 151.5 Visit Report Report Report Report Report Allergies Allergen Reactions Hydrochlorothiazide Other Reaction(s): dizziness, Dizziness or Vertigo Current Outpatient Medications on File Prior to Visit Medication Sig Dispense Refill diclofenac (Voltaren) 50 MG EC tablet Take 50 mg by mouth every 12 (twelve) hours if needed lidocaine (Lidoderm) 5 % patch APPLY 1 PATCH TOPICALLY EVERY 24 HOURS LEAVE ON MOST PAINFUL AREA FOR UP TO 12 HRS methocarbamol (Robaxin) 500 MG tablet Take 500 mg by mouth 3 (three) times a day as needed for muscle spasms methylPREDNISolone (Medrol Dospak) 4 MG tablets TAKE 6 TABLETS ON DAY 1 DIRECTED ON PACKAGE AND DECREASE BY 1 TAB EACH DAY FOR A TOTAL OF 6 DAYS alpha tocopherol (Vitamin E) 100 units capsule [...] before bedtime. cholecalciferol (Vitamin D-3) 50 MCG (1999 UT) tablet 1 tablet Orally Once a day - during the winter then 2,000units in spring Cranberry-Vitamin C-Vitamin E (CRANBERRY PLUS VITAMIN C PO) Cranberry Plus Vitamin C (Patient not taking: Reported on 05/05/2025) estradiol (Estrace) 0.1 MG/GM vaginal cream Insert 1 g into the vagina 3 (three) times a week 42.5 g 11 Krill Oil 1000 MG capsule Take 1 capsule by mouth in the morning. magnesium 100 MG tablet 1 (one) time each day at the same time. mirabegron ER (Myrbetriq) 50 MG 24 hr tablet Take 50 mg by mouth in the morning. orphenadrine (Norflex) 100 MG 12 hr tablet Take 1 tablet (100 mg) by mouth 2 (two) times a day as needed for muscle spasms Do not crush, chew, or split. 60 tablet 0 Pediatric Multiple Vitamins (THERA MULTI-VITAMIN PO) 1 [...] facility-administered medications on file prior to visit. Reviewed the available emergency room and CT scan results. 1. Fall from bed, sequela I discussed with her and so far she is not getting adequate relief. We are going to get her a little bit of tramadol to help get her through the weekend. We discussed how this is a controlled substance. I specifically note the patient has one or more high risk medications that is a chronic problem that specifically increases complexity of decision making and complicates all prescribing including prescription renewal consistent with a moderate or complex degree of decision making. A high-risk medicine is one that may cause serious health problems if not taken the correct way, ortaken with another drug or food item that it may interact with. If the high-risk medication includes a controlled or reportable substance, The OARRS and NARX scores were reviewed and seem to be consistent with their prescribing pattern. The Current Opioid Misuse Measure (COMM) is reviewed and there is no evidence of aberrant behavior or abuse. Treatment regimens are increasingly complex and potentially harmful, and people with high risk medications need regular review and prescribing optimization. PDMP reviewed, Fredrick Jerome MD on 07/16/2025 2:17 PM Appears as expected. - traMADol (Ultram) 50 MG tablet; Take 1 tablet (50 mg) by mouth every 8 (eight) hours if needed for severe pain for up to 5 days Dispense: 15 tablet; Refill: 0 2. Back muscle spasm She denied any sensation of feeling sedated or off balance from her previous muscle relaxants. Theywere not really helping her situation. We discussed a mutually agreed to Flexeril which has more risk for sedation but is a better muscle relaxant. Also she has just been taken some [id number] anti- inflammatory, we will have her hold that and move to prescription strength. If things are Not better Sunday she is to call us back. - cyclobenzaprine (Flexeril) 10 MG tablet; Take 1 tablet (10 mg) by mouth in the morning and 1 tablet (10 mg) in the evening and 1 tablet (10 mg) before bedtime. Do all this for 10 days. Dispense: 30tablet; Refill: 0 - nabumetone (Relafen) 750 MG tablet; Take 1 tablet (750 mg) by mouth in the morning and 1 tablet (750 mg) before bedtime. Dispense: 60 tablet; Refill: 0 Please Note: Portions of this chart may have been created using voice recognition software. Occasionally a wrong-word or sound-like substitutions may have occurred due to inherent limitations of the voice recognition software. Please read the chart carefully and recognize, using context, where the substitutions may have occurred. documented in this encounterChildren's Mercy [id number] Telephone encounter Note* Telephone Encounter - Fredrick Jerome MD - 05/28/2025 3:40 PM EDT Prescription sent [facility] [id number] Miscellaneous Notes* Telephone Encounter - Fredrick Jerome MD - 05/28/2025 3:40 PM EDT Prescription sent * Telephone Encounter - Ana Paula Chaidez MA - 05/28/2025 3:24 PM EDT Idalia called and stated she had previously talked to that she was not going to see her dr in [place] anymore for urology because all they fill for her is her estradiol cream and had offered to take it over and that she was supposed to call when she was ready for it. She would like to know if you can send this to [facility]. I have it pended if it is okay documented in this encounterNOLee's Summit [id number] Telephone encounter Note* Telephone Encounter - Ana Paula Chaidez MA - 05/28/2025 3:24 PM EDT Idalia called and stated she had previously talked to that she was not going to see her dr in [place] anymore for urology because all they fill for her is her estradiol cream and had offered to take it over and that she was supposed to call when she was ready for it. She would like to know if you can send this to [facility]. I have it pended if it is okay [facility] [id number] History of Present illness Narrative* Fredrick Jerome MD - 05/05/2025 2:00 PM EDT Images from the original note were not [...] Yes Vision Screening: Yes, patient sees regular risk control specialist/air pollution analyst Hearing Screening: Not done Cognitive Screening Self Assessment: No concerns rasied by family members, friends, or caretakers Three Word Registration: Pj Che, Finger Clock Drawing: Normal Clock - 2 [...] Osteopenia Pneumonia 11/2017 didn't stay overnight in [place], was on bedrest for two weeks Rotator cuff syndrome Urinary tract infection Vitamin D deficiency SURGICAL HISTORY: Past Surgical History: Procedure Laterality Date COLONOSCOPY 04/2018 [place] ARTHROCENTESIS ASPIR&/INJ MAJOR JT/BURSA W/O TOTAL ABDOMINAL HYSTERECTOMY W/ BILATERAL SALPINGOOPHORECTOMY 1996 [...] or stroke. The ASCVD risk score (Chris DK, et al., 20192020 [employer] [employer]) returns the percentage [...] discussing health maintenance issues, ordering testing as appropriate,and a schedule was reviewed regarding recommended screening. [...] lasted approximately 5-10 minutes documented in this encounterChildren's Mercy [id number] History of Present illness Narrative* Fredrick Jerome MD - 03/17/2025 8:00 AM EDT Images from the original note were not included. Patient ID: Kristan Barker is a 74 y.o. female who presents for: Hypertension Patient is here for follow-up of elevated blood pressure. She is exercising and is adherent to a low-salt diet. Blood pressure is well controlled at home. Cardiac symptoms: none. Patient denies chestpain, dyspnea, irregular heart beat, lower extremity edema, and palpitations. Cardiovascular risk factors: advanced age (older than 55 for men, 65 for women), dyslipidemia, hypertension, and microalbuminuria. Use of agents associated with hypertension: none. History of target organ damage: chronic kidney disease. Hyperlipidemia Pt who presents for follow-up of dyslipidemia. A repeat fasting lipid profile was done. The patientdoes not use medications that may worsen dyslipidemias [...] before bedtime. cholecalciferol (Vitamin D-3) 50 MCG (2000 UT) tablet 1 tablet Orally Once a [...] they are all to goal. She does havea walking program. She is going through some situational stressors with her 's health, but her blood pressure is maintaining. 2. Hypertensive nephropathy (CMS/HCC) Chronic problem, stable, demonstrating end organ damage from their current state of health. I stressed the importance of keeping blood pressure and blood sugar to goal, staying well hydrated,avoiding NSAIDs, and aerobic exercises as tolerated. Continue to monitor longitudinally. 3. Stage 2 chronic kidney disease Chronic problem, stable, defining the end organ damage of the nephropathy. I stressed the importance of keeping blood pressure and blood sugar to goal, staying well hydrated,and aerobic exercises as tolerated. Continue to monitor longitudinally. 4. Microalbuminuria Chronic problem, defining an aspect the nephropathy, with significant risk, uncertain progression requiring longitudinal monitoring, and moderate decision making. Microalbuminuria describes a moderate increase in the level of urine albumin. Normally, the kidneysfilter albumin, so if the kidney leaks small amounts of albumin into the urine then it is a indicator of chronic kidney disease. Microalbuminuria is an independent indicator of increased cardiovascular risk among individuals andtherefore can be used for risk stratification for cardiovascular disease. 5. Mixed dyslipidemia (CMS/HCC) Chronic problem, stable We did discuss the technically her LDL goal would be 130 or less and she is coming in at 1:39 a.m..However she does have an HDL of 80. Her relative risk for cholesterol only numbers is 3. This is onthe borderline between average and below average. After [...] 90 tablet; Refill: 1 documented in this encounterChildren's Mercy [id number] History of Present illness Narrative* Fredrick Jerome MD - 09/16/2024 9:00 AM EST Images from the original note were not [...] before bedtime. cholecalciferol (Vitamin D-3) 50 MCG (1999 UT) [...] 90 tablet; Refill: 1 documented in this encounterNODC HealthcareEvaluation note* Diagnosis Essential hypertension (CMS/HCC) Unspecified essential hypertension Hypertensive nephropathy (CMS/HCC) Unspecified hypertensive kidney disease with chronic kidney disease stage I through stage IV, or unspecified Stage 2 chronic kidney disease Microalbuminuria Proteinuria Mixed dyslipidemia (CMS/HCC) Osteopenia of spine documented [facility] encounter [facility]* Diagnosis Essential hypertension (CMS/HCC) Unspecified essential hypertension Hypertensive nephropathy (CMS/HCC) Unspecified hypertensive kidney disease with chronic kidney disease stage I through stage IV, or unspecified Stage 2 chronic kidney disease Microalbuminuria Proteinuria Mixed dyslipidemia (CMS/HCC) Osteopenia of spine [facility] encounter [facility]* Diagnosis Encounter for Medicare annual wellness exam- Primary Advance directive in chart Encounter for screening for other disorder Screening for alcohol problem Screening for alcoholism Hx of hysterectomy, total Cardiovascular event risk documented [facility] this [facility]* Diagnosis Hx of hysterectomy, total Symptomatic states associated with artificial menopause [facility] this encounter [facility]* Diagnosis Fall from bed, sequela Back muscle spasm Other symptoms referable to back documented in this encounter [facility] Summary Purpose Family History No Family History Records FoundNo Family History Records FoundNo Family History Records FoundNo Family History Records Found Advance Directives TypeDate RecordedPatient RepresentativeExplanationAdvance Directives and Living Will Advance Directives Additional Source Comments INFORMATION SOURCE (unrecogn ized section and content) DATE CREATED AUTHOR 08/29/2022 [facility] DATE CREATED AUTHOR AUTHOR'S ORGANIZ ATION 11/17/2023 [facility] DATE CREATED AUTHOR AUTHOR'S ORGANIZ ATION 03/14/2025 [facility] DATE CREATED AUTHOR AUTHOR'S ORGANIZ ATION 07/18/2025 [facility] EPIC Care Teams (unrecognized sec tion and content) Team MemberRelationshipSpecialtyStart DateEnd Date Fredrick Jerome MD [address] [place] [address] (Fax) PCP - ACO Reach03/22/23 Fredrick Jerome MD [address] [place] [address] (Fax) PCP - GeneralFamily Medicine03/28/23Team MemberRelationshipSpecialtyStart DateEnd Date Fredrick Jerome MD [address] [place] [phone] (Fax) PCP - ACO Reach03/22/23 Fredrick Jerome MD [address] [place] [address] (Fax) PCP - GeneralFamily Medicine03/28/23Team MemberRelationshipSpecialtyStart DateEnd Date Fredrick Jerome MD [address] [place] [address] (Fax) PCP - ACO Reach03/22/23 Fredrick Jerome MD [address] [place] [address] (Fax) PCP - GeneralFamily Medicine03/28/23 Win Brooke MD [address] [place] [address] Referring PhysicianOptometry03/02/25 Billie Cruz MD [address] [place] [address], [address] [place] [address] Referring PhysicianRetina Ophthalmology03/02/25Te MemberRelationshipSpecialty Start DateEnd Date Fredrick Jerome MD [address] [place] [address] (Fax) PCP - ACO [facility]03/22/23 Fredrick Jerome MD [address] [place] [address] (Fax) PCP - GeneralFamily Medicine03/28/23 Win Brooke MD [address] [place] [address] Referring PhysicianOptometry03/02/25 Billie Cruz MD [address] [place] [address], [address] [place] [address] Referring PhysicianRetina Ophthalmology03/02/25Team MemberRelationshipSpecialty Start DateEnd Date Fredrick Jerome MD [address] [place] [address] (Fax) PCP - ACO [facility]03/22/23 Fredrick Jerome MD [address] [place] [address] (Fax) PCP - GeneralFamily Medicine03/28/23 Win Brooke MD [address] [place] [address] Referring PhysicianOptometry03/02/25 Billie Cruz MD [address] [place] [address], [address] [place] [address] Referring PhysicianRetina Ophthalmology03/02/25Te MemberRelationshipSpecialty Start DateEnd Date Fredrick Jerome MD [address] [place] [address] (Fax) PCP - ACO [facility]03/22/23 Fredrick Jerome MD [address] [place] [address] (Fax) PCP - GeneralFamily Medicine05/05/25 Win Brooke MD [address] [place] [address] Referring PhysicianOptometry03/02/25 Billie Cruz MD [address] [place] [address], [address] [place] [address] Referring PhysicianRetina Ophthalmology03/02/25Team MemberRelationshipSpecialty Start DateEnd Date Fredrick Jerome MD [address] [place] [address] (Fax) PCP - ACO [facility]03/22/23 Fredrick Jerome MD [address] [place] [address] (Fax) PCP - GeneralFamily Medicine05/05/25 Win Brooke MD [address] [place] [id number] Referring PhysicianOptometry03/02/25 Billie Cruz MD [address] [place] [address], [address] [place] [address] Referring PhysicianRetina Ophthalmology03/02/25Te MemberRelationshipSpecialty Start DateEnd Date Fredrick Jerome MD [address] [place] [address] (Fax) PCP - ACO [facility]03/22/23 Fredrick Jerome MD [address] [place] [address] (Fax) PCP - Generalmily Medicine05/05/25 Win Brooke MD [address] [place] [address] Referring PhysicianOptometry03/02/25 Billie Cruz MD [address] [place] [address], [address] [place] [address] Referring PhysicianRetina Ophthalmology03/02/25Team MemberRelationshipSpecialty Start DateEnd Date Fredrick Jerome MD [address] [place] [address] PCP - ACO [facility]03/22/23 Fredrick Jerome MD [address] [facility] [address] [place] [address] [facility]CP - [facility]Fab[facility] Medicine05/05/25 Win Brooke MD [address] [facility] [address] [place] [address] Referring PhysicianOptometry03/02/25 Billie Cruz MD [address] [place] [address], [address] [place], [place] [id number] Referring PhysicianRetina Ophthalmology03/02/25 Reason for Visit (unrecogniz ed section and content) ReasonCommentsHypertensionHyperlipidemiaReasonCommentsAnnual ExamReasonOnset DateCommentsCare Lfaewvgxxwxb34/31/2025 FOR RECORDS PERTAINING TO PATIENTS WHO ARE [...] BE BASED ON THE PRIMARY CLINICAL RECORDS. [employer] [facility]. provides no warranty or guarantee of the accuracy or completeness of information in this document.
--- OUTSIDE RECORDS SUMMARY | 2025-08-20 16:06 | XMS_ITS | Clinical Summary ---
Author Organization [facility] Address [address] [place] [address] Care Team Providers Care Teaching Artist Name Role Phone Fredrick Jerome MD Unavailable [phone] Win Brooke MD Unavailable [phone] Billie Cruz MD Unavailable Fredrick Jerome MD Primary Care Provider Allergies Active AllergyReactionsCriticalityNoted DateCommentsHydrochlorothiazide 03/02/2023 Other Reaction(s): dizziness, Dizziness or Vertigo Medications MedicationSigDispense QuantityRefillsLast FilledStart DateEnd DateStatus aspirin 81 MG EC tablet Take 81 mg by mouth in the morning.Active magnesium 100 MG tablet 1 (one) time each day at the same time.Active Krill Oil 1000 MG capsule Take 1 capsule by mouth in the morning.Active Potassium 99 MG tablet Take 1 tablet by mouth in the morning.Active alpha tocopherol (Vitamin E) 100 units capsule Take 100 Units by mouth in the morning.Active Ascorbic Acid (vitamin C) 1000 MG tablet Take 1,000 mg by mouth in the morning.Active Cranberry-Vitamin C-Vitamin E (CRANBERRY PLUS VITAMIN C PO) Cranberry Plus Vitamin CActive calcium citrate 1040 MG tablet Take 1 tablet by mouth in the morning and 1 tablet before bedtime.Active Pediatric Multiple Vitamins (THERA MULTI-VITAMIN PO) 1 twice a day OrallyActive cholecalciferol (Vitamin D-3) 50 MCG (1999 UT) tablet 1 tablet Orally Once a day - during the winter then 2,000units in springActive rosuvastatin (Crestor) 10 MG tablet Indications:Mixed dyslipidemiaTake 1 tablet (10 mg) by mouth in the evening 90 tablet 5Active raloxifene (Evista) 60 MG tablet Indications:Osteopenia of spineTake 1 tablet (60 mg) by mouth Daily 90 tablet 5Active estradiol (Estrace) 0.1 MG/GM vaginal cream Indications:Hx of hysterectomy, total,Symptomatic states associated with artificial menopauseInsert 1 g into the vagina 3 (three) times a week 42.5 g 5Active methylPREDNISolone (Medrol Dospak) 4 MG tablets TAKE 6 TABLETS ON DAY 1 DIRECTED ON PACKAGE AND DECREASE BY 1 TAB EACH DAY FOR A TOTAL OF 6 DAYS07/08/2025tive methocarbamol (Robaxin) 500 MG tablet Take 500 mg by mouth 3 (three) times a day as needed for muscle ttmafy4707/08/2025 Active lidocaine (Lidoderm) 5 % patch APPLY 1 PATCH TOPICALLY EVERY 24 HOURS LEAVE ON MOST PAINFUL AREA FOR UP TO 12 HRS07/08/2025tive cyclobenzaprine (Flexeril) 10 MG tablet Indications:Back muscle spasmTake 1 tablet (10 mg) by mouth in the morning and 1 tablet (10 mg) in the evening and 1 tablet (10 mg) before bedtime. Do all this for 10 days. 30 tablet 5Active mirabegron ER (Myrbetriq) 50 MG 24 hr tablet Indications:Urge incontinence of urineTake 1 tablet (50 mg) by mouth Daily 90 tablet 5Active mirabegron ER (Myrbetriq) 50 MG 24 hr tablet Take 50 mg by mouth in the morning.Discontinued(Reorder) nabumetone (Relafen) 750 MG tablet Indications:Back muscle spasmTake 1 tablet (750 mg) by mouth in the morning and 1 tablet (750 mg) before bedtime. 60 tablet Expired traMADol (Ultram) 50 MG tablet Indications:Fall from bed, sequelaTake 1 tablet (50 mg) by mouth every 8 (eight) hours if needed for severe pain for up to 5 days 15 tablet Expired mirabegron ER (Myrbetriq) 50 MG 24 hr tablet Indications:Urge incontinence of urineTake 1 tablet (50 mg) by mouth Daily 90 tablet Discontinued(Reorder) Active Problems ProblemNoted DateDiagnosed DateCardiovascular event risk05/12/2025ody mass index (BMI) 23.0-23.9, adult10/11/2023Equinus contracture of right ankle 03/22/2023ESS (euthyroid sick syndrome)03/22/2023Essential hypertension 03/22/2023Female stress xxsvnfdiyonr68/25/2023Haglund's deformity of right heel 03/22/2023Heart chdhqz3603/22/2023Hx of hysterectomy, total03/22/2023Hypertensive haivdvkbcci42/25/4169Oplrophzxantkinn49/25/2023Mixed hhqltfhelfag85/25/2023Other specified disorders of bone density and structure, right thigh03/22/2023 Osteopenia of spine03/22/2023VC's (premature ventricular contractions) 03/22/2023Stage 2 chronic kidney bltybjr9503/22/2023Symptomatic states associated with artificial rfrisiboi68/25/2023Vitamin D dygooktksf14/25/2023White matter ynvxuif8003/22/2023 Resolved Problems ProblemNoted DateDiagnosed DateResolved DateOverweight (BMI 25.0-29.9)03/22/2023 03/18/2024Spasm of ieoiorb06/05/2025 Encounters DateTypeDepartmentCare HkbjQqfoamurrwy01/02/2025Telephone [facility] [address] [address] Fredrick Jerome MD 07/29/2025Orders Only [facility] [place] [address] [place] [address] Kaylynn January, Urge incontinence of urine07/27/2025Patient Outreach [facility] [address] [place] [address] Lety Gay RN 07/23/2025Orders Only [facility] [place] [address] [place] [address] Kaylynn January, Urge incontinence of urine07/16/2025 1:45 PM EDTOffice Visit [facility] [address] [place] [address] Fredrick Jerome MD Fall from bed, sequela; Back muscle spasm07/16/2025amboo flowsheet [facility] [address] [place] [address] Fredrick Jerome MD 07/16/20257561Nnjxxp08/02/2025Telephone [facility] [address] [place] [address] Kaylynn January, [place] Care Jtkgouczrliy66/29/2025Patient Outreach [facility] [address] [place] [address] Venecia Francois LSW 05/28/2025Telephone [facility] [address] [place] [address] Kaylynn January, Care Coordinationfrom Last 3 Months Immunizations ImmunizationAdministration DatesNext DueInfluenza, High Dose Seasonal, Preservative Free11/14/2024,07/31/2020,09/15/2019,08/07/2018Influenza, High-dose Seasonal, Quadrivalent, Preservative Free09/06/2022,08/03/2021Influenza, Seasonal, Quadrivalent, Xteasfxwra74/06/2023Influenza, injectable, quadrivalent, preservative free09/03/2017,09/18/2016Influenza, seasonal, injectable, preservative free10/08/2015Influenza, seasonal, intradermal, preservative free 08/13/2013Pneumococcal Conjugate PCV 1305/02/2016Pneumococcal Polysaccharide JFZW2131,03/09/2016RSV, recombinant, protein subunit RSVpreF, adjuvant reconstitu, 120mcg/0.5mL, PF (Arexvy)09/26/2023Zoster, Qixhnvmjtpu16/02/2023, 05/19/2023 Family History Medical HistoryRelationNameCommentsAtrial fibrillationBrother 1MarkHeart disease Brother 1MarkPacemakerBrother 1MarkHeart diseaseBrother 2JoeCancerBrother 3Paul No Known ProblemsDaughterAlcohol abuseFatherDadHeart diseaseFatherDad HypertensionMotherMomStrokeMotherMomCancerSisterLindaNo Known ProblemsSon RelationNameStatusCommentsBrother 1Mark2 brothersBrother 4YisMhtbx3 brothers Brother 6EgsqMiabbylsXlgvp8 daughtersFatherDadDeceasedMotherMomDeceasedSister Linda2 sistersSonAlive1 son Social History Tobacco UseTypesPacks/DayYears UsedDateSmoking Tobacco: NeverSmokeless Tobacco: Never Tobacco Cessation:Counseling Given: Not Answered Alcohol UseStandard Drinks/WeekCommentsYes2 (1 standard drink = 0.6 oz pure alcohol)Very ecthfeuzcvaD2758 Health LiteracyAnswerDate RecordedHow often do you need to have someone help you when you read instructions, pamphlets, or other written material from your doctor or pharmacy?Never03/16/2025Humiliation, Afraid, Rape, and Kick questionnaireAnswerDate RecordedWithin the last year, have you been afraid of your partner or ex-partner?No03/16/2025Within the last year, have you been humiliated or emotionally abused in other ways by your partner or ex-partner?No03/16/2025Within the last year, have you been kicked, hit, slapped, or otherwise physically hurt by your partner or ex-partner?No 03/16/2025Within the last year, have you been raped or forced to have any kind of sexual activity by your partner or ex-partner?No03/16/2025Social Connection and Isolation PanelAnswerDate RecordedIn a typical week, how many times do you talk on the phone with family, friends, or neighbors?More than three times a week03/16/2025How often do you get together with friends or relatives?More than three times a week03/16/2025How often do you attend orthodoxy or confucianist services?More than 4 times per year03/16/2025Do you belong to any clubs or organizations such as orthodoxy groups, unions, fraternal or athletic groups, or school groups?Yes03/16/2025How often do you attend meetings of the clubs or organizations you belong to?More than 4 times per year03/16/2025re you , , , , never , or living with a partner? 03/16/2025UDIT-CAnswerDate RecordedQ1: How often do you have a drink containing alcohol?Monthly or less03/16/2025Q2: How many drinks containing alcohol do you have on a typical day when you are drinking?1 or Q3: How often do you have six or more drinks on one occasion?Never03/16/2025Overall Financial Resource Strain (CARDIA)AnswerDate RecordedHow hard is it for you to pay for the very basics like food, housing, medical care, and heating?Not hard at all 03/16/2025PHQ-2AnswerDate RecordedPatient Health Questionnaire-2 Score0 04/28/2025[facility] [place] [facility] - Occupational Stress QuestionnaireAnswerDate RecordedDo you feel stress - tense, restless, nervous, or anxious, or unable to sleep at night because yourmind is troubled all the time - these days?Rather much03/16/2025Exercise Vital SignAnswerDate Recorded Days of Exercise per WeekNot on file03/16/2025On average, how many minutes do you engage in exercise at this level?20 min03/16/2025Hunger Vital SignAnswerDate RecordedWithin the past 12 months, you worried that your food would run out before you got the money to buymore.Never true03/16/2025Within the past 12 months, the food you bought just didn't last and you didn't have money to get more.Never true03/16/2025PRAPARE - TransportationAnswerDate RecordedIn the past 12 months, has lack of transportation kept you from medical appointments or from getting medications?No03/16/2025In the past 12 months, has lack of transportation kept you from meetings, work, or from getting things needed for daily living?No03/16/2025Housing Stability Vital SignAnswerDate RecordedIn the last 12 months, was there a time when you were not able to pay the mortgage or rent on time?No09/25/2023In the last 12 months, how many places have you lived?1 09/25/2023In the last 12 months, was there a time when you did not have a steady place to sleep or slept in [facility] (including now)?No09/25/2023Housing Stability Vital SignAnswerDate RecordedIn the last 12 months, was there a time when you were not able to pay the mortgage or rent on time?No03/16/2025In the past 12 months, how many times have you moved where you were living? At any time in the past 12 months, were you homeless or living in a [facility] (including now)?03/16/2025CommentsNoSex and Gender InformationValue Date RecordedSex Assigned at BirthNot on fileLegal YmcRjwldi34/15/2023 6:54 PM EDTGender WrzfycehXbzztu68/15/2023 6:54 PM EDTSexual OrientationNot on file OccupationIndustryJob Start DateJob End DateRetiredNot on fileNot on fileNot on file Last Filed Vital Signs Vital SignReadingTime TakenCommentsBlood Bwophesu780/7607 2:33 PM EDT Kjabp3857 2:33 PM EDTTemperature--Respiratory Rate--Oxygen Oxmzjvuhhf81% 05/05/2025 2:33 PM EDTInhaled Oxygen Concentration--Ltavki49.6 kg (149 lb) 05/05/2025 2:33 PM CRTOzpeau902.6 cm (5' 6 )05/05/2025 2:33 PM EDTBody Mass Index24.05005/05/2025 2:33 PM EDT Plan of Treatment DateTypeDepartmentCare Team (Latest Contact Info)Givqpcutphg07/12/2025 2:00 PM ESTOffice Visit [address] [address] Fredrick Jerome MD [address] [address] 05/06/2026 2:00 PM EDTOffice Visit [address] [address] Fredrick Jerome MD [address] [address] Health MaintenanceDue DateLast DoneCommentsCT Gslmkwpktdcx63/04/1951FIT-DNA 1950FIT1950FOBT1950 3978Jthsljwkxlpzg45/04/9945Udimcxoot64/13/2025 06/10/2024, 07/07/2022, 05/31/2020, Additional history existsInfluenza Vaccine (#1)501/, 08/03/2023, 09/06/2022, Additional history exists Medicare Annual Wellness (AWV)607/05/2025, 05/08/2024, 05/07/2023, Additional history tngrogDrjgnmfzldq07, 05/08/2018Colorectal Cancer Ajrryhxxm21/27/2033Pneumococcal Vaccine: 65+ KewghQokjebjym09/11/2017, 03/09/2016, 03/02/2016 Procedures Procedure NamePriorityDate/TimeAssociated DiagnosisCommentsMM TOMOSYNTHESIS SCREENING BI06/10/2024 11:45 AM EDT CDOIEWUBLVJCgzscmo62/11/2018 12:00 PM EDT from Last 3 Months or Most Recently Relevant to Health Maintenance Results * MM TOMOSYNTHESIS SCREENING BI (06/10/2024 11:45 AM EDT)Anatomical Region LateralityModalityOtherSpecimen (Source)Anatomical Location / Laterality Collection Method / VolumeCollection TimeReceived Time06/10/2024 11:45 AM EDT Narrative 06/10/2024 11:46 AM EDT [facility] ?[address] ? [place] [address] ? Mammography Report ? Signed ? Patient: KRISTAN BARKER K ?MR#: [id number] ?? : 1950 ?Acct:[id number] ?? Age/Sex: 73 / F ?ADM Date: 06/10/24 ?? Loc: MAMMO ? Attending Dr: FREDRICK JEROME ? Ordering Physician: FREDRICK JEROME ? Results: ? Date of Service: 06/10/24 ?Follow Up: ? Procedure(s): MM tomosynthesis screening BI ?? Accession Number(s): [id number] ? cc: FREDRICK JEROME ? Patient Name: ? KRISTAN LOPARO ? MR#: [id number] ? : 1950 ? Exam Date: 06/10/2024 ?? Ordering Doctor: DR FREDRICK JEROME . ? RADIOLOGY REPORT ? PROCEDURE: ? MM TOMOSYNTHESIS SCREENING BI ? COMPARISON: ? MG MAMM SCREEN RADHA W CAD, 05/31/2020. ??MG MAMM SCREEN 3D RADHA ?? CAD, 07/07/2022. ? INDICATIONS: ? Screening ? Calculator Name ? NCI Breast Cancer Risk Assessment Tool ?? 5 Year Breast Cancer Risk ? 1.60% ?? Lifetime Breast Cancer Risk ? 3.90% ?? Personal Breast Cancer ?No ?? Personal Ovarian Cancer ? No ?? Treatments ? None ?? Family Cancers ? None ? LOCATION: ? [facility] ? BREAST COMPOSITION: ? There are scattered areas of fibroglandular density. ? FINDINGS: ? DIAGNOSTIC CATEGORY 2--BENIGN FINDING. NO CHANGE FROM COMPARISON. ??Scattered ?? benign-appearing calcifications are present. ? RIGHT BREAST: ??No significant suspicious finding. ? LEFT BREAST: ??No significant suspicious finding. ? RECOMMENDATIONS: ? ROUTINE MAMMOGRAM AND CLINICAL EVALUATION IN 12 MONTHS. ? PLEASE NOTE: ??A NORMAL MAMMOGRAM DOES NOT EXCLUDE THE POSSIBILITY OF BREAST ?? CANCER. ??A CLINICALLY SUSPICIOUS PALPABLE LUMP SHOULD BE BIOPSIED. ? Dictated by: David Castro MD on 06/10/2024 at 11:44 ? Approved by: David Castro MD on 06/10/2024 at 11:45 ? Dictated By: ?David Castro M.D. ? Signed By: ?06/10/24 1146 ? DD/ 1145 ? TD/TT: ? Acid Maker: Procedure Note Radiology, Radiologist, MD - 06/10/2024 [place] [address] Mammography Report Signed Patient: KRISTAN BARKER KMR#: [id number] : 1Acct:[id number] Age/Sex: 73 / FADM Date: 06/10/24 Loc: MAMMO Attending Dr: FREDRICK JEROME Ordering Physician: Олег JEROME: Date of Service: 06/10/24Follow Up: Procedure(s): MM tomosynthesis screening BI Accession Number(s): [id number] cc: FREDRICK JEROME Patient Name: KRISTAN BARKER MR#: [id number] : 1950 Exam Date: 06/10/2024 Ordering Doctor: [...] Treatments None Family Cancers None LOCATION: [facility] BREAST COMPOSITION: There are scattered areas [...] M.D. Signed By:06/10/24 1146 DD/ 1145 TD/TT: Acid Maker: Authorizing ProviderResult TypeResult Sana Jerome MDCLINISYNC IMAGING Final Result * Colonoscopy (05/08/2018 12:00 PM EDT)Anatomical RegionLateralityModality EndoscopySpecimen (Source)Anatomical Location / LateralityCollection Method / VolumeCollection TimeReceived Time05/08/2018 12:00 PM EDT Narrative 05/08/2018 12:00 PM EDT PERFORMED AT [facility] LOCATION:[id number] Normal Procedure Note CONVERSION, GENERIC - 03/14/2023 PERFORMED AT [facility] LOCATION:[id number] Normal Authorizing ProviderResult TypeResult StatusEdward J Hemeyer MDENDOSCOPY PROCEDURE ORDERABLESFinal Result from Last 3 Months or Most Recently Relevant to Health Maintenance Insurance Advance Directives TypeDate RecordedPatient RepresentativeExplanationAdvance Directives and Living Will Advance Directives Care Teams Team MemberRelationshipSpecialtyStart DateEnd Date Fredrick Jerome MD [address] [place] [address] (Fax) PCP - [facility]03/22/23 Fredrick Jerome MD [address] [place] [address] PCP - GeneralFamily Medicine05/05/25 Win Brooke MD [address] [place] [address] Referring PhysicianOptometry03/02/25 Billie Cruz MD [address] [place] [address], [address] [place] [id number] Referring PhysicianRetina Ophthalmology03/02/25
--- OUTSIDE RECORDS SUMMARY | 2025-08-20 16:06 | XMS_ITS | Clinical Summary ---
Author Organization [facility] Address [address], [address] [place] [address] Care Team Providers Care Belt Machine Operator Name Role Phone Unavailable Primary Care Provider Unavailabl e Allergies Active AllergyReactionsCriticalityNoted DateCommentsHydrochlorothiazideDizziness or Hqpsmyp4503/02/2023 Medications MedicationSigDispense QuantityRefillsLast FilledStart DateEnd DateStatus ASPIRIN 81 PO Take by mouthActive Cholecalciferol (VITAMIN D) 50 MCG (1999 UT) CAPS capsule Take by mouth dailyActive calcium citrate (CALCITRATE) 250 MG TABS tablet Take 1 tablet by mouth 3 times dailyActive Pediatric Multiple Vitamins (THERA MULTI-VITAMIN PO) Take by mouth 2 times dailyActive raloxifene (EVISTA) 60 MG tablet Take 1 tablet by mouth dailyActive vitamin E 1000 units capsule Take 1 capsule by mouth dailyActive Coenzyme M71-Oqlw Oil-Vit E (CO-Q 10 OMEGA-3 FISH OIL PO) Take by mouth dailyActive Magnesium 100 MG CAPS Take by mouth dailyActive Potassium 99 MG TABS Take by mouth dailyActive Cranberry-Vitamin C-Vitamin E (CRANBERRY PLUS VITAMIN C PO) Take by mouth daily 2 gel capsules dailyActive losartan (COZAAR) 50 MG tablet Take 1 tablet by mouth daily12/16/2022ctive rosuvastatin (CRESTOR) 10 MG tablet Take 0.5 tablets by mouth daily12/16/2022ctive estradiol (ESTRACE VAGINAL) 0.1 MG/GM vaginal cream Indications:Vaginal atrophyPlace a pea-sized amount around urethral and 1 inch amount to vulva/vaginally 3 times Use finger toapply, wash hands after application. DO NOT use plastic applicator. Call office if you stop this med ication. 1 each ctive Social History Tobacco UseTypesPacks/DayYears UsedDateSmoking Tobacco: NeverSmokeless Tobacco: Never Tobacco Cessation:Counseling Given: Not Answered Alcohol UseStandard Drinks/WeekCommentsYes0 (1 standard drink = 0.6 oz pure alcohol)rareCommentsUnknownSex and Gender InformationValueDate Recorded Sex Assigned at BirthNot on fileLegal VwlJisxvz06/13/2013 12:02 AM ESTGender IdentityNot on fileSexual OrientationNot on file Last Filed Vital Signs Vital SignReadingTime TakenCommentsBlood Chfwilyi712/7006 1:13 PM EDT Vpbgh489904/01/2024 1:13 PM VUSZvxjianvzxb56 ??C (98.6 ??F)04/01/2024 1:13 PM EDT Respiratory Rate--Oxygen Saturation--Inhaled Oxygen Concentration--Elblnx03.6 kg (149 lb)04/01/2024 1:13 PM GCNKknech893.6 cm (5' 6 )05/22/2023 3:30 PM EDTBody Mass Index24.0507 3:30 PM EDT Plan of Treatment Health MaintenanceDue DateLast DytuFssqwyebQacncj88/04/1961Depression Screen 1962Hepatitis C kjnqnd6512/30/1968DTaP/Tdap/Td vaccine (1 - Tdap)1969 Crjzirmyvst33/04/1996Colorectal Cancer Xeysmh5112/31/1995FIT/FOBT: Average risk 12/31/1995Fecal-DNA (Cologuard): Average risk12/31/1995Sigmoidoscopy/CT txwvuzjoaaab23/04/1996Annual Wellness Visit (Medicare)09/24/2023reast cancer /06/2022, 05/31/2020, 05/28/2019, Additional history existsFlu vaccine (#1)/03/2023, 09/06/2022, 08/03/2021, Additional history existsCOVID-19 Vaccine ( season)51, 08/09/2022, 02/01/2022, Additional history existsPneumococcal 50+ years VaccineCompleted 05/08/2017, 03/09/2016, 03/02/2016DEXA (modify frequency per FRAX score) Pftddmbvr25/09/2022, 05/31/2020, 04/01/2018Shingles zvyyfufWilkfkotu65/02/2023, 05/19/2023Respiratory Syncytial Virus (RSV) or age 60 yrs+Completed 09/26/2023Hepatitis A vaccineAged OutNo longer eligible based on patient's age to complete this topicHepatitis B vaccineAged OutNo longer eligible based on patient's age to complete this topicHib vaccineAged OutNo longer eligible based on patient's age to complete this topicMeningococcal (ACWY) vaccineAged OutNo longer eligible based on patient's age to complete this topicMeningococcal B vaccineAged OutNo longer eligible based on patient's age to complete this topic Polio vaccineAged OutNo longer eligible based on patient's age to complete this topic Insurance MemberSubscriberPlan / Payer (Effective 2015-Present)Name:Kristan Barker Relation to Subscriber:SelfName:Kristan Barker Payer ID:Not on file Group ID:Not on file Type:Not on file Address: [place] [id number]
--- OUTSIDE RECORDS SUMMARY | 2025-08-20 16:06 | XMS_ITS | Encounter Summary ---
Author Organization [facility] Address [address] [place] [address] Care Team Providers Care Lyft Driver Name Role Phone Fredrick Haywood MD Unavailable Win Brooke MD Unavailable Billie Cruz MD Unavailable [phone] Fredrick Haywood MD Primary Care Provider Encounter Details DateTypeDepartmentCare Team (Latest Contact Info)Xwnehqyiidq37/02/2025Telephone [facility] [place] [address] Family Medicine 112 [facility] [address] [place] [address] Fredrick Haywood MD 112 [facility] [address] [place] [address] (Fax) Social History Tobacco UseTypesPacks/DayYears UsedDateSmoking Tobacco: NeverSmokeless Tobacco: NeverAlcohol UseStandard Drinks/WeekCommentsYes2 (1 standard drink = 0.6 oz pure alcohol)Very kuerizgzgvhU6522 Health LiteracyAnswerDate RecordedHow often do you need [...] times a week03/16/2025How often do you attend scientology or restorationism services?More than 4 times per year03/16/2025Do you belong to any clubs or organizations such as scientology groups, unions, fraternal or athletic groups, or [...] at all 03/16/2025PHQ-2AnswerDate RecordedPatient Health Questionnaire-2 Score0 04/28/2025[facility] [place] [facility] Occup[facility] - Occupational Stress QuestionnaireAnswerDate [...] steady place to sleep or slept in box elderelter (including now)?No09/25/2023Housing Stability Vital SignAnswerDate RecordedIn the last 12 months, was there a time when you were not able to pay the mortgage or rent on time?No03/16/2025In the past 12 months, how many times have you moved where you were living? At any time in the past 12 months, were you homeless or living in a alf (including now)?No03/16/2025CommentsNoSex and Gender InformationValue Date RecordedSex Assigned at BirthNot on fileLegal VcaSuxzdp18/15/2023 6:54 PM EDTGender RefxqwlnBficrr60/15/2023 6:54 PM EDTSexual OrientationNot on file OccupationIndustryJob Start DateJob End DateRetiredNot on fileNot on fileNot on filedocumented as of this encounter Miscellaneous Notes * Telephone Encounter - Natasha Uriarte - 07/30/2025 10:14 AM EDT Idalia called, she stated she is no longer seeing the Urologist in [place]. She is asking if Dr. Haywood can refill her mirabegron ER (Myrbetriq) 50 MG 24 hr To [facility] documented in this encounter Plan of Treatment DateTypeDepartmentCare Team (Latest Contact Info)Jzikkgbhkxb46/12/2025 2:00 PM ESTOffice Visit [facility] [place] [address] Family Medicine [address] [address] Fredrick Haywood MD [address] [address] (Fax) 05/06/2026 2:00 PM EDTOffice Visit [facility] [place] [address] Family [facility] [address] [address] Fredrick Haywood MD [address] [address] (Fax) documented as of this encounter Visit Diagnoses Not on filedocumented in this encounter Additional Health Concerns AssessmentNoted TimePHQ-9 Depression Total Score: 8:00 AM EDT documented as of this encounter Care Teams Team MemberRelationshipSpecialtyStart DateEnd Date Fredrick Haywood MD [address] [place] [address] (Fax) PCP - [facility]03/22/23 Fredrick Haywood MD [address] [place] [address] PCP - Generalmi Medicine05/05/25 Win Brooke MD [address] [address] Referring PhysicianOptometry03/02/25 Billie Cruz MD [address] [place] [address], [address] [place] [address] Referring PhysicianRetina Ophthalmology03/02/25documented as of this encounter
== END 2025-08-20 16:02 | disposition home or self-care (01) ==
LOC: MAMMO 16:01
PROVIDERS: PCP Family Medicine; Visit Provider Family Medicine
DX: Z12.31 Encounter for screening mammogram for malignant neoplasm of breast (principal)
CPT/HCPCS: 77063; 77067